=== PATIENT | female | born 1995 | race Two or more races ===

== ENCOUNTER 2020-12-06 12:44 | Outpatient (REF) | payer OTHER, SELFPAY ==
[2020-12-07 02:42] LABS: CT PCR NOT DETECTED (Not Detect.); NG PCR NOT DETECTED (Not Detect.)
== END 2020-12-06 12:45 | disposition home or self-care (01) ==
LOC: HO.LAB 12:44
PROVIDERS: PCP Family Medicine; Visit Provider Obstetrics & Gynecology
DX: Z30.09 Encounter for other general counseling and advice on contraception (principal); N91.2 Amenorrhea, unspecified
CPT/HCPCS: 87491; 87591; 99212

== ENCOUNTER → 2020-12-20 10:04 | Outpatient (BNVA) | payer OTHER, SELFPAY | PROVIDERS: PCP Family Medicine; Visit Provider Obstetrics & Gynecology ==

== ENCOUNTER 2020-12-21 11:15 | Outpatient (REF) | payer OTHER, SELFPAY ==
[2020-12-21 13:37] LABS: TSH reflex Free T4 0.78 uIU/mL (0.32-4.0)
== END 2020-12-21 11:16 | disposition home or self-care (01) ==
LOC: HO.LAB 11:15
PROVIDERS: PCP Family Medicine; Visit Provider Obstetrics & Gynecology
DX: N91.2 Amenorrhea, unspecified (principal)
CPT/HCPCS: 36415; 84443

== ENCOUNTER 2021-10-05 16:31 | Emergency (ER) | payer OTHER, SELFPAY ==
--- NOTE | ~2021-10-05 | XR_ITS ---
EXAMINATION: CHEST 2 VIEWS CLINICAL INFORMATION: COUGH, FEVER . COMPARISON: No recent pertinent prior studies are available for comparison. TECHNIQUE: PA and lateral views of the chest obtained. FINDINGS: The lungs are well expanded. No focal infiltrate, effusion, edema, or pneumothorax. Cardiac and mediastinal silhouettes are within normal limits for technique. No acute bony abnormality seen XR/XR chest 2V IMPRESSION: No evidence of acute disease
[2021-10-05 17:13] VITALS: BP 127/77; PULSE 140; RESP 22; TEMP 37.9; O2SAT 99; BMI 28.3
--- NOTE | 2021-10-05 17:19 | ECG_ITS ---
Test Reason : TACHYCARDIA Blood Pressure : / mmHG Vent. Rate : 123 BPM Atrial Rate : 123 BPM P-R Int : 164 ms QRS Dur : 090 ms QT Int : 298 ms P-R-T Axes : 050 -02 025 degrees QTc Int : 426 ms Sinus tachycardia Otherwise normal ECG No previous ECGs available Referred By: Sheela Cedillo Electronically Signed By:CYDNEY GONZALEZ
[2021-10-05] MEDS: Acetaminophen 325 MG TABLET 650 MG PO (17:25)
[2021-10-05 17:33] LABS: Appearance Urine CLEAR; Color Urine YELLOW; Glucose Urine UA NEG (NEG); Leukocyte Esterase Urine NEG (NEG); Nitrite Urine NEG (NEG); PH 6.5 (5.0-8.0); UACC Culture Trigger NO; Urine Blood 2+ (NEG); Urine Ketones NEG (NEG); Urine Protein NEG (NEG-TRACE)
[2021-10-05 17:34] LABS: UPreg QC Valid YES; Urine Pregnancy NEGATIVE (NEGATIVE)
[2021-10-05 17:42] LABS: Bacteria Urine TRACE /LPF; RBC Urine 0 /HPF (0); Squamous Epithelial Cell Urine 1+ /LPF; WBC Urine 0 /HPF (0-4)
[2021-10-05 17:45] LABS: Influenza A Positive (Negative); Influenza B2 Negative (Negative)
[2021-10-05 19:22] VITALS: BP 137/78; PULSE 109; RESP 16; TEMP 37.4; O2SAT 100
--- NOTE | 2021-10-05 19:38 | ED.URI ---
HPI - URI/Sore Throat General Chief Complaint: Upper Respiratory Symptoms Stated Complaint: both side pain and lung pain cough Time Seen by Provider: 10/05/21 17:18 Source: patient Mode of arrival: ambulatory Limitations: language barrier (Kazakh-speaking medical psychotherapist utilized) History of Present Illness HPI Narrative: Patient presents to the emergency department for evaluation cough, nasal congestion, and rib pain x2 days. Reports pain to the sides of her chest/ribs is present when coughing or taking deep breaths. Denies any known sick contacts. Denies fevers, chills, sore throat, neck pain, neck stiffness, headache, chest pain, palpitations, shortness of breath, difficulty breathing, nausea, vomiting, abdominal pain, leg pain or swelling, history of DVT/PE. MD elicited complaint: fever, cough and nasal congestion Description of mucous: watery Able to tolerate fluids by mouth: Yes Related Data Previous Rx's Medication Instructions Recorded medroxyprogesterone 10 mg tablet 10 mg PO daily 5 Days #5 tab 12/06/20 (Provera) desogestrel 0.15 mg-ethinyl 1 tab PO DAILY 28 Days #28 tab 12/20/20 estradiol 0.03 mg tablet (Apri) oseltamivir 75 mg capsule (Tamiflu) 75 mg PO BID 5 Days #10 cap 10/05/21 Allergies Allergy/AdvReac Type Severity Reaction Status Date / Time No Known Allergies Allergy Verified 12/06/20 12:59 [No Known Allergies*] Review of Systems Review of Systems: Constitutional: Positive fever. No chills. No weakness. Positive fatigue. ENT/ Mouth: No Ear Pain, positive Nasal Congestion, no sore throat, No Rhinorrhea, No Swallowing Difficulty Skin: No rash or itching. Cardiovascular: Positive chest wall pain. No palpitations. Respiratory: No shortness of breath. Positive cough. No sputum production. Gastrointestinal: No nausea. No vomiting. No diarrhea. No abdominal pain. Genitourinary: No burning micturition. No urinary frequency. Neurologic: No headache. No dizziness. No syncope. No numbness or tingling in the extremities. Musculoskeletal: No muscle pain. No back pain. No joint pain or stiffness. Yes all other systems are reviewed and are negative PMFSH Past Medical History Attestation statement: The following information was validated with the patient. Source: old records reviewed Surgical History Hx of section Social History Social History Alcohol intake: never Patient Tobacco Use Status: Never used Tobacco Advance Directives: No Advance Directives Information Provided: Yes Physical Exam Vital Signs: Vital Signs: Last Vital Signs Temp 99.3 F 10/05/21 19:22 Pulse 109 H 10/05/21 19:22 Resp 16 10/05/21 19:22 BP 137/78 10/05/21 19:22 Pulse Ox 100 10/05/21 19:22 BMI result Body Mass Index 28.3 Appearance: Alert.?Oriented to person, place and time. No acute distress.?Normal affect. Eyes: Pupils equal, round and reactive to light.? ENT: TM normal bilaterally. Pharynx normal.?? Neck: Normal inspection.? Neck supple.??No cervical adenopathy CVS: Heart sounds normal. Normal heart rate and rhythm.? Pulses normal.?? Respiratory: No respiratory distress.? Lung sounds clear to auscultation bilaterally. Chest wall tenderness with palpation, no crepitus. Abdomen: Soft and non-tender. Normoactive bowel sounds. Skin: Skin warm and dry.? Normal skin color.? ? Extremities: No lower extremity edema.? Neuro: Moves all extremities spontaneously. Sensation intact bilaterally. No motor deficits. Ambulates with normal steady gait. Course Course Course Narrative: Patient is a 26-year-old female with no significant past medical history, presenting for evaluation of upper respiratory symptoms. COVID-19 testing negative. Influenza testing positive. Reproducible lateral chest wall pain. At this time history and physical exam not consistent with ACS/PE/pneumonia. Patient initially presented with tachycardia, low-grade fever at 100.3, respiratory rate 22, at this time not consistent with sepsis, likely tachycardia secondary to fever in the setting of viral illness. Well appearing, nontoxic, no hypoxia. Speaking clear full sentences, ambulatory with steady gait. Discussed conservative treatment including rest, hydration, Tylenol/ibuprofen as needed for fever and body aches, saline nasal spray, humidifier, [id number] cold medication. Offered Tamiflu and she accepted. to follow-up with primary care provider as needed, discussed reasons to return back to the emergency department. All questions were answered. Patient discharged home in stable condition. Provided with a return to work/school note. MDM - URI/Sore Throat Medical Records Attestation: I reviewed the patient's medical records. Lab Data Attestation: I reviewed the patient's lab results. Labs: Lab Results 10/05/21 10/05/21 10/05/21 Range/Units 17:23 17:23 17:23 Urine Color YELLOW Urine Appearance CLEAR Urine pH 6.5 (5.0-8.0) Ur Specific [place] 1.010 (1.005-1.025) Urine Protein NEG (NEG-TRACE) MG/DL Urine Glucose (UA) NEG (NEG) MG/DL Urine Ketones NEG (NEG) MG/DL Urine Blood 2+ H (NEG) Urine Nitrite NEG (NEG) Ur Leukocyte Esterase NEG (NEG) Urine RBC 0 (0) /HPF Urine WBC 0 (0-4) /HPF Ur Squamous Epith Cells 1+ /LPF Urine Bacteria TRACE /LPF Urine Test NEGATIVE (NEGATIVE) Influenza Type A (FAMILIA) Positive A (Negative) Influenza Type B (FAMILIA) Negative (Negative) Influenza A & B Note See Note Imaging Data Chest x-ray: Radiologist's impression: XR/XR chest 2V IMPRESSION: No evidence of acute disease ECG Data Attestation: I personally reviewed and interpreted this ECG as follows: ECG interpretation date: 10/06/21 Interpretation: Rate: 120 Rhythm:? Sinus tachycardia [place]:? [place] Normal P waves.? Normal MARGARET.?? Normal QRS complex.?? ST T wave :??No ST elevation, no ST depression, no T-wave inversion qTC: 426 The study has been interpreted contemporaneously by me. Discharge Plan Discharge Clinical Impression: Influenza A Patient Disposition: Home, Self-Care Instructions: Influenza (ED) Additional Instructions: Be sure to rest, stay well hydrated drinking plenty of fluids, eat small frequent meals. Tamiflu was sent to the pharmacy. Tylenol/ibuprofen can be used as needed for fever/pain. [id number] cold medications may be helpful as well for symptoms. Saline nasal spray, humidifier may be helpful for nasal congestion. You may return to the emergency department with any new or worsening symptoms or concerns. Follow-up with your primary care provider as needed. Should remain out of school/ work until symptoms have resolved and have been without a fever for 24 hours without the use of Tylenol or ibuprofen. Prescriptions: New oseltamivir [Tamiflu] 75 mg capsule 75 mg PO BID 5 Days Qty: 10 0RF No Action medroxyprogesterone [Provera] 10 mg tablet 10 mg PO daily 5 Days Qty: 5 0RF desogestrel-ethinyl estradiol [Apri] 0.15-0.03 mg tablet 1 tab PO DAILY 28 Days Qty: 28 2RF Stand Alone Forms: Work/School Release Interventions: ED Discharge Assessment Last Done: 10/05/21 20:15 Discharge Date/Time: 10/05/21 20:17 Print Language: Kazakh
== END 2021-10-05 20:17 | disposition home or self-care (01) ==
PROVIDERS: Emergency Provider Internal Medicine; PCP Family Medicine
DX: J10.1 Influenza due to other identified influenza virus with other respiratory manifestations (principal); R05.9 Cough, unspecified; R00.0 Tachycardia, unspecified; R50.9 Fever, unspecified; Z79.899 Other long term (current) drug therapy
CPT/HCPCS: 71046; 81001; 81025; 87502; 93005; 99283; 99284

== ENCOUNTER 2022-03-14 09:10 | Outpatient (REF) | payer OTHER, SELFPAY ==
[2022-03-14 14:03] LABS: CT PCR NOT DETECTED (Not Detect.); NG PCR NOT DETECTED (Not Detect.)
== END 2022-03-14 09:11 | disposition home or self-care (01) ==
LOC: HO.LNP 09:10
PROVIDERS: Visit Provider Obstetrics & Gynecology
DX: Z01.419 Encounter for gynecological examination (general) (routine) without abnormal findings (principal)
CPT/HCPCS: 87491; 87591; 88142

== ENCOUNTER 2023-06-18 14:36 | Outpatient (REF) | payer OTHER, SELFPAY ==
[2023-06-18 17:44] LABS: CT PCR NOT DETECTED (Not Detect.); NG PCR NOT DETECTED (Not Detect.)
[2023-06-19 13:12] LABS: BV Int Neg Control Negative (Negative); BV Int Pos Control Positive (Positive)
== END 2023-06-18 14:37 | disposition home or self-care (01) ==
LOC: HO.LNP 14:36
PROVIDERS: PCP Family Medicine; Visit Provider Obstetrics & Gynecology
DX: N76.0 Acute vaginitis (principal); R10.2 Pelvic and perineal pain; Z32.02 Encounter for pregnancy test, result negative
CPT/HCPCS: 0353U; 81003; 81025; 87480; 87510; 87660; 99212

== ENCOUNTER 2023-06-18 14:36 | Outpatient (AMB) | payer OTHER, SELFPAY ==
[2023-06-18 14:58] VITALS: BP 130/72; BMI 33.4
--- NOTE | 2023-06-18 14:58 | A.OFFVIS_ITS ---
Intake Vital Signs 06/18/23 14:58 Height 5 ft 5 in Weight 201 lb BMI 33.4 BP 130/72 Intake Visit Reasons: vaginal discharge Stock Holder Required: Yes Stock Holder Language: Inspector Tool Name: Rachel Gunter Information Interpreted: non-clinical & clinical Extrusion Die Repair Manager: Extrusion Die Repair Manager Present (Rachel) Allergies No Known Allergies [No Known Allergies*] Allergy (Verified 06/18/23 15:03) Post menopausal: No HPI HPI Comments History of Present Illness Details Presenting complaining of vulvovaginal irritation associated with vaginal discharge and right-sided pelvic pain, no fever or chills, no nausea or vomiting. PFSH Surgical History Hx of section Family History Father Diabetes HTN (hypertension) Mother Diabetes HTN (hypertension) Social History Household Members: Significant Other and Children Housing: Apartment Alcohol intake: never Patient Tobacco Use Status: Never used Tobacco Current occupational status: employed Current occupation: [employer] Sexual orientation: Straight/Heterosexual Gender identity: Female Female Reproductive History Menstrual Age of Menarche: 14 control method: none Total pregnancies: 2 Number of Living Children: 3 Multiple births: 1 Date of last pap smear: 03/14/22 (negative) Review of Systems Const All systems reviewed & are unremarkable except as noted in HPI and below Physical Exam Vital Signs: Last Vital Signs BP 130/72 06/18/23 14:58 BMI result Body Mass Index 33.4 General: Yes no CVA tenderness External Female Exam: normal external appearance and normal appearance of the urethra Speculum Exam - Vagina: normal appearance of the vagina, normal palpation, no lesions and no masses Speculum Exam - Cervix: normal appearance of the cervix, normal palpation, no lesions, no masses and nontender Bimanual exam- vagina & uterus: normal bimanual exam, normal palpation, uterine size normal, normal palpation, uterine shape normal, No Cervical tenderness present and non-tender Bimanual Exam- Adnexa, other: normal adnexae (Left adnexa within normal, right adnexa enlarged) Back/Spine/Pelvis Back: no CVA tenderness Results AMB Urinalysis, Automated UA Leukoctes 0 Andrez/uL Last Edit by NATALY Roger on 06/18/23 15:26 UA Nitrite Negative Last Edit by Melissa Lee Theresa on 06/18/23 15:26 UA Urobilinogen 0 mg/dL Last Edit by Melissa Lee Theresa on 06/18/23 15:26 UA Protein 0 mg/dL Last Edit by [facility] on 06/18/23 15:26 UA pH 6 Last Edit by Melissa [facility] on 06/18/23 15:26 UA Blood 0 Santos/uL Last Edit by Melissa [facility] on 06/18/23 15:26 UA Specific [place] 1.010 Last Edit by Melissa Lee Theresa on 06/18/23 15: 26 UA Ketone Negative Last Edit by Melissa Lee Theresa on 06/18/23 15:26 UA Bilirubin 0 mg/dL Last Edit by Melissa [facility] on 06/18/23 15:26 UA Glucose 0 mg/dL Last Edit by Melissa Lee Theresa on 06/18/23 15:26 AMB Test Urine AMB Test Urine Negative Last Edit by NATALY Roger on 06/18/23 15:26 Assessment & Plan Assessment & Plan (1) Vulvovaginitis: Code(s): N76.0 - Acute vaginitis Plan: GC/CT, Bacterial Vaginosis panel taken, Terazol 0.8% q.h.s. for 3 days was sent to the patient's pharmacy. The patient was instructed to call if symptoms don't improve in 48 hours. (2) Pelvic pain: Comment: Enlarged right adnexal Code(s): R10.2 - Pelvic and perineal pain Plan: Urine dip and test done in the office were both negative. GC and chlamydia taken and pelvic ultrasound ordered. Discussed with the patient the differential diagnosis of pelvic pain including but not limited to adnexal, uterine masses, pelvic infections (PID), GI the (Irritable bowel syndrome, diverticulitis, others), musculoskeletal, myofascial pain abdominal wall , adhesions, endometriosis, psychological and others causes. Will check results and treat accordingly. All questions answered, the patient verbalized understanding. Instructed the patient to schedule follow-up appointment in 2 weeks Orders: Orders CT NG by PCR Today N76.0 - Acute vaginitis, R10.2 - Pelvic and perineal pain Bacterial Vaginosis Panel Today N76.0 - Acute vaginitis, R10.2 - Pelvic and perineal pain AMB Urinalysis Automated Today R10.2 - Pelvic and perineal pain US pelvic and transvaginal Today R10.2 - Pelvic and perineal pain AMB HCG Urine Test Today Z32.02 - Encounter for test, result negative Medications: New terconazole 0.8% 1 appful vaginal BEDTIME 3 days 20 grams 0RF Coding Level of Care Code Est Pt Level 3 (77565) Diagnoses Vulvovaginitis N76.0 Pelvic pain R10.2
== END 2023-06-18 15:52 | disposition home or self-care (01) ==
LOC: HO.HWS 14:36
PROVIDERS: PCP Family Medicine; Visit Provider Obstetrics & Gynecology
DX: N76.0 Acute vaginitis (principal); R10.2 Pelvic and perineal pain; Z32.02 Encounter for pregnancy test, result negative
CPT/HCPCS: 99213

== ENCOUNTER 2023-06-21 13:31 | Outpatient (REF) | payer OTHER, SELFPAY ==
--- NOTE | ~2023-06-21 | US_ITS ---
EXAMINATION: US PELVIS CLINICAL INFORMATION: Pain, 28-year-old, LMP 2-24 COMPARISON: None available. TECHNIQUE: Ultrasound of the pelvis is performed using both transabdominal and transvaginal transducers along with Doppler. Transvaginal imaging is performed due to inadequate visualization transabdominally. FINDINGS: Uterus: The uterus is anteverted and measures 12.3 x 5.3 x 5.7 cm. The double wall endometrial thickness is 11 mm. The uterus is smooth in contour and has normal myometrial echogenicity. No visible fibroid. Adnexa: Both ovaries are visualized. There is normal color flow to the adnexa. There is no ovarian torsion. There is no pelvic ascites or fluid collection. Right ovary measures 3.3 x 2.1 x 2.2 cm. Left ovary measures 2.9 x 2.1 x 2.5 cm. US/US pelvic and transvaginal IMPRESSION: Unremarkable pelvic ultrasound.
== END 2023-06-21 13:32 | disposition home or self-care (01) ==
LOC: HO.HMGCX 13:31
PROVIDERS: PCP Family Medicine; Visit Provider Obstetrics & Gynecology
DX: R10.2 Pelvic and perineal pain (principal)
CPT/HCPCS: 76830; 76856

== ENCOUNTER 2023-07-02 13:37 | Outpatient (AMB) | payer OTHER, SELFPAY ==
--- NOTE | 2023-07-02 13:42 | MHC.OFFVIS ---
Intake Intake Visit Reasons: US follow up per Computer Engineering Technologist Required: Yes Computer Engineering Technologist Language: Assistant Plant Controller Name: Rachel Information Interpreted: non-clinical & clinical Allergies No Known Allergies [No Known Allergies*] Allergy (Verified 07/02/23 13:44) Is last menstrual period known: Yes Last menstrual period: 06/21/23 [facility] HPI Comments History of Present Illness Details Presenting for follow-up. The patient had a workup for pelvic pain which included the following: Urine dip and urine test done in the office last visit were negative. Pelvic ultrasound showed the following: Uterus: The uterus is anteverted and measures 12.3 x 5.3 x 5.7 cm. The double wall endometrial thickness is 11 mm. The uterus is smooth in contour and has normal myometrial echogenicity. No visible fibroid. Adnexa: Both ovaries are visualized. There is normal color flow to the adnexa. There is no ovarian torsion. There is no pelvic ascites or fluid collection. Right ovary measures 3.3 x 2.1 x 2.2 cm. Left ovary measures 2.9 x 2.1 x 2.5 cm. Since then the patient's pain has completely resolved with no concerns PFSH Surgical History Hx of section Family History Father Diabetes HTN (hypertension) Mother Diabetes HTN (hypertension) Social History Household Members: Significant Other and Children Housing: Apartment Alcohol intake: never Patient Tobacco Use Status: Never used Tobacco Current occupational status: employed Current occupation: [email or web address] Sexual orientation: Straight/Heterosexual Gender identity: Female Female Reproductive History Menstrual Age of Menarche: 14 Date of last menstrual period: 06/21/23 Review of Systems Const All systems reviewed & are unremarkable except as noted in HPI and below Reports as per HPI and Reports no additional complaints GI Reports no additional complaints Reports no additional complaints Assessment & Plan Assessment & Plan (1) Pelvic pain: Code(s): R10.2 - Pelvic and perineal pain Plan: Discussed with the patient the workup done for pelvic pain including GC/CT negative, negative urine dip and test, an unremarkable ultrasound. Instructions given to patient to call in case of recurrence of her pelvic pain. All questions answered, the patient verbalized understanding Coding Level of Care Code Est Pt Level 3 (59156) Diagnoses Pelvic pain R10.2
== END 2023-07-02 14:03 | disposition home or self-care (01) ==
LOC: HO.HWS 13:37
PROVIDERS: PCP Family Medicine; Visit Provider Obstetrics & Gynecology
DX: R10.2 Pelvic and perineal pain (principal)
CPT/HCPCS: 99213

== ENCOUNTER → 2023-07-02 13:37 | Outpatient (BNVA) | payer OTHER, SELFPAY | PROVIDERS: PCP Family Medicine; Visit Provider Obstetrics & Gynecology | DX: R10.2 Pelvic and perineal pain (principal) | CPT/HCPCS: 99212 ==

== ENCOUNTER 2023-09-10 08:52 | Inpatient (IN) | payer OTHER, SELFPAY ==
--- NOTE | ~2023-09-10 | US_ITS ---
EXAMINATION: US PELVIS CLINICAL INFORMATION: Right pelvic pain, rule out torsion COMPARISON: None available. TECHNIQUE: Ultrasound of the pelvis is performed using both transabdominal and transvaginal transducers along with Doppler. Transvaginal imaging is performed due to inadequate visualization transabdominally. FINDINGS: Uterus: The uterus is anteverted and measures 13 x 4.4 x 6.9. No visible fibroid. The double wall endometrial thickness is 11 mm. Nabothian cysts are seen. Adnexa: Both ovaries are visualized. There is normal arterial and venous color flow to the ovaries. There is no sonographic evidence of ovarian torsion. There is no pelvic ascites or fluid collection. Right ovary measures 4.7 x 2.8 x 2.9 cm. Previous measurement was 3.2 x 2.1 x 2.2 cm. Volume is 20 mL. Follicles are seen. Left ovary measures 3.8 x 3.2 x 2.8 cm. Previous measurement was 2.9 x 2.1 x 2.5 cm. Volume is 17.8 mL. Involuting corpus luteum seen. US/US pelvic and transvaginal IMPRESSION: No uterine or ovarian pathology recognized. Nabothian cysts.
--- NOTE | ~2023-09-10 | US_ITS ---
EXAMINATION: US PELVIS CLINICAL INFORMATION: Right pelvic pain, rule out torsion COMPARISON: None available. TECHNIQUE: Ultrasound of the pelvis is performed using both transabdominal and transvaginal transducers along with Doppler. Transvaginal imaging is performed due to inadequate visualization transabdominally. FINDINGS: Uterus: The uterus is anteverted and measures 13 x 4.4 x 6.9. No visible fibroid. The double wall endometrial thickness is 11 mm. Nabothian cysts are seen. Adnexa: Both ovaries are visualized. There is normal arterial and venous color flow to the ovaries. There is no sonographic evidence of ovarian torsion. There is no pelvic ascites or fluid collection. Right ovary measures 4.7 x 2.8 x 2.9 cm. Previous measurement was 3.2 x 2.1 x 2.2 cm. Volume is 20 mL. Follicles are seen. Left ovary measures 3.8 x 3.2 x 2.8 cm. Previous measurement was 2.9 x 2.1 x 2.5 cm. Volume is 17.8 mL. Involuting corpus luteum seen. US/US pelvic ovarian doppler IMPRESSION: No uterine or ovarian pathology recognized. Nabothian cysts.
--- NOTE | ~2023-09-10 | CT_ITS ---
EXAMINATION: CT ABDOMEN AND PELVIS WITH CONTRAST CLINICAL INFORMATION: Right lower quadrant pain, rule out appendicitis COMPARISON: Same day pelvic ultrasound TECHNIQUE: Multidetector volumetric images were obtained from the superior aspect of the liver through the pubic symphysis following administration 85 mL of Omnipaque 350 intravenous contrast. Sagittal and coronal reformatted images were obtained on the technologist's workstation. Oral contrast: No This CT examination was performed using dose optimization techniques as appropriate, variously including the following: *Automated exposure control *Adjustment of mA and/or kV according to patient size (this includes techniques or standardized protocols for targeted exams where dose is matched to indication/reason for exam; i.e. extremities or head) *Use of iterative reconstruction technique DLP: 702 mGy-cm FINDINGS: WAX SPECIALIST: Nonobstructive bowel pattern LUNG BASES: Nonenlarged heart. No pericardial effusion. Minor dependent atelectasis. LIVER, GALLBLADDER, AND BILIARY TREE: The liver is normal in size, shape, and attenuation. No focal hepatic lesion or biliary ductal dilatation is present. The gallbladder is unremarkable with no evidence of radiopaque gallstones, gallbladder wall thickening, or obvious pericholecystic inflammatory changes. PANCREAS: Unremarkable. SPLEEN: Unremarkable. ADRENAL GLANDS: Unremarkable. KIDNEYS AND URETERS: The kidneys are normal in size, shape, and attenuation. No hydronephrosis, hydroureter, or calculi seen. No perinephric stranding. BLADDER: Unremarkable. GASTROINTESTINAL TRACT: Stomach is decompressed. Bowel pattern is nonobstructive. While not thickened, minimal amount of medial periappendiceal stranding is seen, 3:60, 5:25, 6:71. Minimal stranding inferior and lateral to the appendix seen on 3:65 and 5:23. Mild to moderate fecal retention. ABDOMINAL WALL: Small fat filled umbilical hernia. LYMPH NODES: Normal. VASCULAR: Unremarkable. PELVIC VISCERA: Nabothian cysts. Right sided follicles and 2.3 cm left ovarian cyst, likely corresponding to corpus luteum cyst on same-day ultrasound. Small amount of free pelvic fluid. OSSEOUS STRUCTURES: Unremarkable. CT/CT abdomen pelvis w IV con IMPRESSION: Minimal periappendiceal stranding. Early appendicitis needs to be considered. Small amount of free pelvic fluid, not appreciated on pelvic ultrasound performed earlier in the day. Fleischner guidelines were followed.
[2023-09-10 08:55] VITALS: BP 142/69; PULSE 84; RESP 16; TEMP 36.3; O2SAT 100; BMI 31.8
[2023-09-10 09:29] LABS: MANUAL DIFF FLAG NO
[2023-09-10 09:32] LABS: Appearance Urine Clear; Basophils Absolute Auto 0.1 X10*3/uL (0.0-0.2); Basophils Percent Auto 0.8 % (0-2); Color Urine Yellow; Eosinophils Absolute Auto 0.1 X10*3/uL (0.0-0.4); Eosinophils Percent Auto 1.8 % (0-4); Glucose Urine UA Negative (Negative); Hematocrit 38.1 % (37.0-47.0); Hemoglobin 12.5 g/dl (12.0-16.0); Imm Gran Abs Auto 0.01 X10*3/uL (0.00-0.03); Imm Gran Pct Auto 0.2 % (0.0-0.4); Leukocyte Esterase Urine Negative (Negative); Lymphocytes Absolute Auto 1.8 X10*3/uL (1.2-4.9); Lymphocytes Percent Auto 29.4 % (20-40); Mean Corpuscular HGB Conc 32.8 g/dl (31.0-35.0); Mean Corpuscular Volume 85.2 fL (80.0-98.0); Mean Platelet Volume 10.2 fL (9.4-12.3); Monocytes Absolute Auto 0.4 X10*3/uL (0.1-1.2); Monocytes Percent Auto 5.9 % (2-11); Neutrophils Absolute Auto 3.9 x10*3/uL (2.0-8.3); Neutrophils Percent Auto 61.9 % (45-73); Nitrite Urine Negative (Negative); Platelet Count 293 X10*3/uL (160-400); Red Blood Count 4.47 X10*6/uL (4.20-5.50); Specific Gravity - Urine <= 1.005 (1.005-1.025); Urine Blood Negative (Negative); Urine Ketones Negative (Negative); Urine Protein Negative (Neg-Trace); White Blood Count 6.3 X10*3/uL (4.8-10.8)
[2023-09-10 09:36] LABS: UPreg QC Valid YES; Urine Pregnancy NEGATIVE (NEGATIVE)
[2023-09-10 09:51] LABS: Alanine Aminotransferase 68 U/L (0-31); Albumin Level 4.1 g/dL (3.5-5.0); Alkaline Phosphatase 62 U/L (39-117); Anion Gap 9 (12-20); Aspartate Amino Transferase 39 U/L (5-31); Bilirubin Total 0.6 mg/dL (0.0-1.0); Blood Urea Nitrogen 11 mg/dL (9-16); Calcium 9.2 mg/dL (8.4-10.2); Carbon Dioxide 29 mmol/L (22-29); Chloride 105 mmol/L (96-108); Creatinine Clr Calc Pharmacy 130.6; Estimated Glomerular Filt Rate > 60; Glucose Random 98 mg/dL (60-115); Lipase 16 U/L (8-78); Potassium 3.8 mmol/L (3.3-5.1); Sodium 139 mmol/L (135-145); Total Protein 7.4 g/dL (6.5-8.0)
--- NOTE | 2023-09-10 10:44 | ED.ABDPAIN ---
HPI - Abdominal Pain General Chief Complaint: Abdominal Pain Stated Complaint: Abd pain near belly button Time Seen by Provider: 09/10/23 10:44 Source: patient Limitations: language barrier (Utilize client operations manager services) History of Present Illness HPI narrative: 28-year-old female with history of ovarian cysts, status post presents with abdominal pain since this morning. Patient states she developed intense stabbing suprapubic discomfort. Since the onset of her sxs, the pain has migrated to the right lower abdomen, and radiates across her lower back. The pain is intermittent, worse with movement. Associated nausea. Denies dysuria, hematuria, new vaginal discharge, risk for STD. Related Data Allergies Allergy/AdvReac Type Severity Reaction Status Date / Time No Known Allergies Allergy Verified 09/10/23 09:02 [No Known Allergies*] Review of Systems Review of Systems Yes all other systems are reviewed and are negative PMFSH Past Medical History Surgical History Hx of section Family History Family History Father Diabetes HTN (hypertension) Mother Diabetes HTN (hypertension) Social History Social History Household Members: Significant Other and Children Housing: Apartment Alcohol intake: never Patient Tobacco Use Status: Never used Tobacco Smoked in Last 30 Days: No Use of substances other than those prescribed or required for medical reasons: No Advance Directives: No Advance Directives Information Provided: Yes Do you have a plan to hurt others: No Plan Patient : No Current occupational status: employed Current occupation: [employer] Sexual orientation: Straight/Heterosexual Gender identity: Female Physical Exam ED Vital Signs: Vital Signs - 24 hr 09/10/23 08:55 09/10/23 11:23 09/10/23 12:52 Temperature 97.3 F 98.0 F 98.2 F Pulse Rate 84 85 71 Respiratory Rate 16 16 16 Blood Pressure 142/69 H 127/77 117/68 Pulse Oximetry 100 100 100 Oxygen Delivery Method Room Air Room Air Room Air 09/10/23 14:16 Temperature Pulse Rate 94 Respiratory Rate 14 Blood Pressure 133/76 Pulse Oximetry 99 Oxygen Delivery Method Room Air BMI result Body Mass Index 31.8 Const Other: Alert well in appearance Orientation/consciousness: patient oriented x3 Eyes Pupils: Equal, round and reactive pupils present Resp Other: Nonlabored respiration Cardio Other: Normal peripheral perfusion GI Other: Abdomen is soft, nondistended, obese, mild to moderate tenderness suprapubic region, with referred pain to the right lower quadrant, focal moderate to severe right lower quadrant pain with involuntary guarding no peritoneal signs on exam Other: Deferred as it is not clinically indicated at this time Neuro General: patient oriented x3, gait normal, no focal motor deficits and CN's II-XI intact bilaterally Cranial nerves: Yes Equal, round and reactive pupils present Extrem Other: Strength 5/5 bilateral upper and lower extremities Course Consultations Consultation #1: Dr Norma Jonas I actually spoke with Dr. Valadez.... The patient will be admitted to the surgical service Time: 15:36 Medical Decision Making Medical Decision Making MDM Narrative: 28-year-old female with history of ovarian cysts, status post presents with abdominal pain since this morning. Patient states she developed intense stabbing suprapubic discomfort. Since the onset of her sxs, the pain has migrated to the right lower abdomen, and radiates across her lower back. The pain is intermittent, worse with movement. Associated nausea. Denies dysuria, hematuria, new vaginal discharge, risk for STD. Problem: Ovarian cyst History: Per patient I have considered the following differential diagnoses: Appendicitis, torsion, TOA, PID, UTI Plan: Given patient's symptoms are intermittent, and she has a history of ovarian cysts, I am concerned for intermittent torsion. I am also concerned for appendicitis given distribution and she does have focal right lower quadrant pain with guarding. Screening labs including a urinalysis on process. I am going to begin with a transvaginal ultrasound, if this is negative for acute process, she will have a CT scan. Given Toradol, Zofran and IV fluids at this time. I deferred a pelvic exam, it has not clinically warranted at this time, she has no risk for STD, and no new related symptoms I have independently reviewed the following tests: Labs: No leukocytosis, not anemic, no electrolyte abnormality, minimal elevation of AST ALT, this has been elevated in the past, urine not infected patient not Ordering Physician: Susannah Madrigal Date of Service: 09/10/23 Procedure(s): US pelvic ovarian doppler Accession Number(s): [id number] cc: Ezekiel Gordon MD; Susannah Madrigal~ EXAMINATION: US PELVIS CLINICAL INFORMATION: Right pelvic pain, rule out torsion COMPARISON: None available. TECHNIQUE: Ultrasound of the pelvis is performed using both transabdominal and transvaginal transducers along with Doppler. Transvaginal imaging is performed due to inadequate visualization transabdominally. FINDINGS: Uterus: The uterus is anteverted and measures 13 x 4.4 x 6.9. No visible fibroid. The double wall endometrial thickness is 11 mm. Nabothian cysts are seen. Adnexa: Both ovaries are visualized. There is normal arterial and venous color flow to the ovaries. There is no sonographic evidence of ovarian torsion. There is no pelvic ascites or fluid collection. Right ovary measures 4.7 x 2.8 x 2.9 cm. Previous measurement was 3.2 x 2.1 x 2.2 cm. Volume is 20 mL. Follicles are seen. Left ovary measures 3.8 x 3.2 x 2.8 cm. Previous measurement was 2.9 x 2.1 x 2.5 cm. Volume is 17.8 mL. Involuting corpus luteum seen. US/US pelvic ovarian doppler IMPRESSION: No uterine or ovarian pathology recognized. Nabothian cysts. CT abdomen/pelvis: [place] [id number] CT Scan Report Signed Patient: Laney Carrington MR#: [id number] : 1995 Acct:[id number] Age/Sex: 28 / F ADM Date: 09/10/23 Loc: HO.ED Attending Dr: Ordering Physician: Susannah Madrigal Date of Service: 09/10/23 Procedure(s): CT abdomen pelvis w IV con Accession Number(s): [id number] cc: Ezekiel Gordon MD; Susannah Madrigal~ EXAMINATION: CT ABDOMEN AND PELVIS WITH CONTRAST CLINICAL INFORMATION: Right lower quadrant pain, rule out appendicitis COMPARISON: Same day pelvic ultrasound TECHNIQUE: Multidetector volumetric images were obtained from the superior aspect of the liver through the pubic symphysis following administration 85 mL of Omnipaque 350 intravenous contrast. Sagittal and coronal reformatted images were obtained on the technologist's workstation. Oral contrast: No This CT examination was performed using dose optimization techniques as appropriate, variously including the following: *Automated exposure control *Adjustment of mA and/or kV according to patient size (this includes techniques or standardized protocols for targeted exams where dose is matched to indication/reason for exam; i.e. extremities or head) *Use of iterative reconstruction technique DLP: 702 mGy-cm FINDINGS: SLEEPING CAR PORTER: Nonobstructive bowel pattern LUNG BASES: Nonenlarged heart. No pericardial effusion. Minor dependent atelectasis. LIVER, GALLBLADDER, AND BILIARY TREE: The liver is normal in size, shape, and attenuation. No focal hepatic lesion or biliary ductal dilatation is present. The gallbladder is unremarkable with no evidence of radiopaque gallstones, gallbladder wall thickening, or obvious pericholecystic inflammatory changes. PANCREAS: Unremarkable. SPLEEN: Unremarkable. ADRENAL GLANDS: Unremarkable. KIDNEYS AND URETERS: The kidneys are normal in size, shape, and attenuation. No hydronephrosis, hydroureter, or calculi seen. No perinephric stranding. BLADDER: Unremarkable. GASTROINTESTINAL TRACT: Stomach is decompressed. Bowel pattern is nonobstructive. While not thickened, minimal amount of medial periappendiceal stranding is seen, 3:60, 5:25, 6:71. Minimal stranding inferior and lateral to the appendix seen on 3:65 and 5:23. Mild to moderate fecal retention. ABDOMINAL WALL: Small fat filled umbilical hernia. LYMPH NODES: Normal. VASCULAR: Unremarkable. PELVIC VISCERA: Nabothian cysts. Right sided follicles and 2.3 cm left ovarian cyst, likely corresponding to corpus luteum cyst on same-day ultrasound. Small amount of free pelvic fluid. OSSEOUS STRUCTURES: Unremarkable. CT/CT abdomen pelvis w IV con IMPRESSION: Minimal periappendiceal stranding. Early appendicitis needs to be considered. Small amount of free pelvic fluid, not appreciated on pelvic ultrasound performed earlier in the day. Fleischner guidelines were followed. Patient's surgical service now Admission/Observation Paging the surgical service for consult, patient has early signs of appendicitis on her CT scan. Medical management versus surgery. Lab Data 09/10/23 09:11 09/10/23 09:11 Labs: Lab Results 09/10/23 Range/Units 09:11 WBC 6.3 (4.8-10.8) X10*3/uL RBC 4.47 (4.20-5.50) X10*6/uL Hgb 12.5 (12.0-16.0) g/dl Hct 38.1 (37.0-47.0) % MCV 85.2 (80.0-98.0) fL MCH 28.0 (27.0-33.0) pg MCHC 32.8 (31.0-35.0) g/dl RDW 13.0 (11.0-16.0) % Plt Count 293 (160-400) X10*3/uL MPV 10.2 (9.4-12.3) fL Immature Gran % (Auto) 0.2 (0.0-0.4) % Neut % (Auto) 61.9 (45-73) % Lymph % (Auto) 29.4 (20-40) % [place] % (Auto) 5.9 (2-11) % Eos % (Auto) 1.8 (0-4) % Baso % (Auto) 0.8 (0-2) % Lymph # (Auto) 1.8 (1.2-4.9) X10*3/uL [place] # (Auto) 0.4 (0.1-1.2) X10*3/uL Eos # (Auto) 0.1 (0.0-0.4) X10*3/uL Baso # (Auto) 0.1 (0.0-0.2) X10*3/uL Abs Immat Gran (auto) 0.01 (0.00-0.03) X10*3/uL Absolute Neuts (auto) 3.9 (2.0-8.3) x10*3/uL Absolute Nucleated RBC 0.000 (0.0-0.012) X10*3/uL Nucleated RBC % (auto) 0.0 (0.0-0.2) /100WBC Sodium 139 (135-145) mmol/L Potassium 3.8 (3.3-5.1) mmol/L Chloride 105 (96-108) mmol/L Carbon Dioxide 29 (22-29) mmol/L Anion Gap 9 L (12-20) BUN 11 (9-16) mg/dL Creatinine 0.71 (0.5-1.4) mg/dL Estim Creat Clear Calc 130.6 Estimated GFR > 60 Random Glucose 98 (60-115) mg/dL Calcium 9.2 (8.4-10.2) mg/dL Total Bilirubin 0.6 (0.0-1.0) mg/dL AST 39 H (5-31) U/L ALT 68 H (0-31) U/L Alkaline Phosphatase 62 (39-117) U/L Total Protein 7.4 (6.5-8.0) g/dL Albumin 4.1 (3.5-5.0) g/dL Lipase 16 (8-78) U/L Urine Color Yellow Urine Appearance Clear Urine pH 8.0 (5.0-9.0) Ur Specific [place] <= 1.005 (1.005-1.025) Urine Protein Negative (Neg-Trace) mg/dL Urine Glucose (UA) Negative (Negative) mg/dL Urine Ketones Negative (Negative) mg/dL Urine Blood Negative (Negative) Urine Nitrite Negative (Negative) Ur Leukocyte Esterase Negative (Negative) Urine Test NEGATIVE (NEGATIVE) Medications Administered Discontinued Medications Generic Name Dose Route Start Last Admin Trade Name Freq PRN Reason Stop Dose Admin Sodium Chloride 500 mls @ 500 mls/hr 09/10/23 11:02 09/10/23 13:23 Ns IV 09/10/23 12:01 Infused .Q1H ONE Infusion Iohexol 85 ml 09/10/23 14:12 09/10/23 14:12 Iohexol 350 Mg/Ml 100 Ml Infus..Btl IV 09/10/23 14:13 85 ml ONCE ONE Administration Ketorolac Tromethamine 15 mg 09/10/23 10:59 09/10/23 11:28 Ketorolac Tromethamine 15 Mg/Ml Vial IVPUSH 09/10/23 11:00 15 mg ONCE ONE Administration Ondansetron HCl 4 mg 09/10/23 10:59 09/10/23 11:28 Ondansetron Hcl 4 Mg/2 Ml Vial IVPUSH 09/10/23 11:00 4 mg ONCE ONE Administration Discharge Plan Discharge Clinical Impression: Acute appendicitis Patient Disposition: Admitted As Inpatient Print Language: Mongolian
[2023-09-10 11:23] VITALS: BP 127/77; PULSE 85; RESP 16; TEMP 36.7; O2SAT 100
[2023-09-10] MEDS: ondansetron HCL 4 MG/2 ML VIAL IVPUSH ×2 (11:28→17:03)
[2023-09-10] MEDS: 0.9 % Sodium Chloride 500 ML IV (11:28)
[2023-09-10] MEDS: Ketorolac Tromethamine 15 MG/ML VIAL IVPUSH (11:28)
--- NOTE | 2023-09-10 11:28 | PC.NURSE ---
a&ox4. vss and up to date. pt presents to ED w/ sudden onset lower abdomen/pelvic pain that woke her up from her sleep around 0400 this morning. pt verbalizes nausea but denies any episodes of vomiting/diarrhea. pt also denies any urinary sx. sx increase upon palpation. 20gIV placed in the right AC - medication/IVF administered per provider order. no sob/wob noted. respirations even and unlabored. pt aware of plan of care moving forward at this time. plan of care ongoing. call miranda placed within reach.
--- NOTE | 2023-09-10 11:38 | PC.NURSE ---
pt to ultrasound at this time. will resume care of pt when she returns.
[2023-09-10 12:52] VITALS: BP 117/68; PULSE 71; RESP 16; TEMP 36.8; O2SAT 100
--- NOTE | 2023-09-10 12:52 | PC.NURSE ---
pt returned from US at this time. vss and up to date. pt verbalizing pain level slightly decreased post medication administration. pt stating nausea subsided at this time. no sob/wob noted. respirations even and unlabored. US results pending. plan of care ongoing. call miranda placed within reach.
--- NOTE | 2023-09-10 14:02 | PC.NURSE ---
pt to CT at this time.
[2023-09-10] MEDS: iohexoL 350 MG/ML 100 ML INFUS..BTL 85 ML IV (14:12)
[2023-09-10 14:16] VITALS: BP 133/76; PULSE 94; RESP 14; O2SAT 99
--- NOTE | 2023-09-10 16:14 | PC.NURSE ---
pt currently speaking w/ PA from OR at this time. pt aware of plan of care in regards to care at this time. plan of care ongoing. call miranda placed within reach.
--- NOTE | 2023-09-10 16:27 | PM.HPGS ---
History of Present Illness History of Present Illness Date of Service: 09/10/23 Chief complaint: Abd pain near belly button Narrative: Laney Smith is a 28 year old female with no significant PMH who presented to the ED with c/o acute onset lower abdominal pain. She reports the pain started this morning at 4am and woke her out of sleep. It is severe in nature and constant. It is more centrally located and on the right side. The pain is associated with nausea without vomiting. She denies fever, chills, diarrhea, constipation, sick contacts, vaginal discharge, pelvic pain. She has a history of 2 c sections. Work up in the ED included CBC, BMP which were WNL. Pelvic US showed was without uterine or ovarian pathology recognized. CT ABD/pelvis showed periappendiceal stranding. Review of Systems Constitutional: Constitutional: Denies chills and Denies fever(s) Cardiovascular: Cardiovascular: Denies chest pain and Denies dyspnea Respiratory: Respiratory: Denies cough and Denies dyspnea Gastrointestinal: Gastrointestinal: Reports as per HPI, Reports abdominal pain, Denies constipation, Denies diarrhea, Denies nausea and Denies vomiting Genitourinary: Genitourinary: Denies hematuria, Denies dysuria, Denies pelvic pain and Denies vaginal discharge PMFSH Family History Family History Father Diabetes HTN (hypertension) Mother Diabetes HTN (hypertension) Surgical History Surgical History Hx of section Social History Social History Household Members: Significant Other and Children Housing: Apartment Alcohol intake: never Patient Tobacco Use Status: Never used Tobacco Smoked in Last 30 Days: No Use of substances other than those prescribed or required for medical reasons: No Advance Directives: No Advance Directives Information Provided: Yes Do you have a plan to hurt others: No Plan Patient : No Current occupational status: employed Current occupation: [employer] Sexual orientation: Straight/Heterosexual Gender identity: Female Meds Allergies Allergy/AdvReac Type Severity Reaction Status Date / Time No Known Allergies Allergy Verified 09/10/23 09:02 [No Known Allergies*] Physical Exam Vital Signs: Vital Signs: Last Vital Signs Temp 98.2 F 09/10/23 12:52 Pulse 94 09/10/23 14:16 Resp 14 09/10/23 14:16 BP 133/76 09/10/23 14:16 Pulse Ox 99 09/10/23 14:16 O2 Del Method Room Air 09/10/23 14:16 BMI result Body Mass Index 31.8 Const: General: comfortable, no acute distress and alert Orientation/consciousness: patient oriented x3 Resp: Effort & Inspection: normal respiratory effort Cardio: Rate: regular rate GI: Inspection: No distended and Yes scar (pfannensteil ) Palpation (GI): Soft to palpation, Tenderness to palpation present (GI) (just inferior to umbilicus and RLQ) Rovsing's sign positive; with no rebound tenderness and no guarding Skin: General skin exam: no rashes or lesions noted Neuro: General: patient oriented x3 Extrem: General: Yes no clubbing, cyanosis or edema Results Results Labs: Short CBC 09/10/23 Range/Units 09:11 WBC 6.3 (4.8-10.8) X10*3/uL Hgb 12.5 (12.0-16.0) g/dl Hct 38.1 (37.0-47.0) % Plt Count 293 (160-400) X10*3/uL BMP 09/10/23 09:11 Sodium 139 Potassium 3.8 Chloride 105 Carbon Dioxide 29 BUN 11 Creatinine 0.71 Calcium 9.2 Liver Function 09/10/23 Range/Units 09:11 Total Bilirubin 0.6 (0.0-1.0) mg/dL AST 39 H (5-31) U/L ALT 68 H (0-31) U/L Alkaline Phosphatase 62 (39-117) U/L Albumin 4.1 (3.5-5.0) g/dL Urine 09/10/23 Range/Units 09:11 Urine Color Yellow Urine Appearance Clear Urine pH 8.0 (5.0-9.0) Ur Specific [place] <= 1.005 (1.005-1.025) Urine Protein Negative (Neg-Trace) mg/dL Urine Glucose (UA) Negative (Negative) mg/dL Urine Test NEGATIVE (NEGATIVE) Abdomen CT scan report/results: report reviewed and image reviewed US - pelvic: report reviewed and image reviewed Assessment and Plan (1) Acute appendicitis: Status: Acute Plan 28 year old female with acute onset lower abd pain with lower abdominal/RLQ tenderness and CT showing periappendiceal stranding, possible early acute appendicitis. She is fairly tender on exam however she is clinically appearing well without any peritoneal signs. WBC count is normal. Will admit for observation, start on empiric abx. Discussed continuing with IV abx and observation or proceeding with laparoscopic appendectomy possible open. She is leaning towards surgery but will reevaluate in the morning. Patient comfortable with plan. Patient is on IV zosyn, IVF, PRN analgesics for pain. Repeat CBC in am. Quality Stroke Does the patient have a stroke diagnosis?: No VTE Prior VTE?: No VTE Risk Level:: Surgical - low VTE Device Contraindication: N/A - Device Ordered VTE Drug Contraindication: Treatment Not Indicated Procedures Date of Service Date of Service: 09/10/23
[2023-09-10] MEDS: Piperacillin Sodium/Tazobactam 3.375 GM in 0.9 % Sodium Chloride 50 ML IV ×2 (16:46→23:43)
[2023-09-10] MEDS: Lactated Ringers 1,000 ML 80 ML IVCONT (16:46)
--- NOTE | 2023-09-10 16:51 | PHA.MEDREC ---
Pharmacy Consult ? Medication Reconciliation Pharmacy has completed the medication reconciliation. Patient reported no medications at home. Frida Duke, MichelleD
--- NOTE | 2023-09-10 17:05 | PC.NURSE ---
pt actively dry heaving - prn zofran utilized at this time. effectiveness pending.
[2023-09-10 18:35] VITALS: BP 131/70; PULSE 96; RESP 16; TEMP 36.7; O2SAT 99
--- NOTE | 2023-09-10 19:31 | PC.NURSE ---
This RN assumed pt care @ 1900. Pt ca&ox4, no signs of distress. Pt rest in bed comfortably. Pts family at bedside. Plan of care ongoing.
--- NOTE | 2023-09-10 23:45 | PC.NURSE ---
Pt resting quietly in bed. Pt medicated per jul. Plan of care ongoing.
[2023-09-10 23:51] VITALS: BP 140/55; PULSE 122; RESP 19; TEMP 36.8; O2SAT 98
[2023-09-11] VITALS (19 sets, daily range): BP systolic 109–145; BP diastolic 54–91; PULSE 73–99; RESP 16–17; TEMP 36.2–37.4; O2SAT 95–100
[2023-09-11] MEDS: 0.9 % Sodium Chloride Flush 3 ML SYRINGE IVFLUSH ×2 (00:41→00:42)
--- NOTE | 2023-09-11 00:51 | PC.NURSE ---
Pt iv access flushed. Pt ambulated to the restroom and back into bed with a steady gait. Pt requested and given 2 warm blankets. Pt requesting drink but advised that she is NPO. Plan of care ongoing.
[2023-09-11] MEDS: Piperacillin Sodium/Tazobactam 3.375 GM in 0.9 % Sodium Chloride 50 ML IV (05:23)
[2023-09-11] MEDS: ondansetron HCL 4 MG/2 ML VIAL IVPUSH ×2 (05:25→12:19)
--- NOTE | 2023-09-11 05:28 | PC.NURSE ---
Pt requested and given meds for nausea. Pt medicated per jul. Plan of care ongoing.
[2023-09-11] MEDS: Lactated Ringers 1,000 ML 80 ML IVCONT (06:00)
--- NOTE | 2023-09-11 06:21 | PC.NURSE ---
Pt medicated per jul. Plan of care ongoing.
--- NOTE | 2023-09-11 09:00 | PM.PNGS ---
Subjective Subjective Date of Service: 09/11/23 Interval history: Patient's abdominal symptoms are essentially the same. Physical Exam Vital Signs: Vital Signs: Last Vital Signs Temp 98.2 F 09/11/23 06:57 Pulse 97 09/11/23 06:57 Resp 16 09/11/23 06:57 BP 118/69 09/11/23 06:57 Pulse Ox 98 09/11/23 06:57 O2 Del Method Room Air 09/11/23 06:57 BMI result Body Mass Index 31.8 GI: Other: Localized right lower quadrant focal rebound tenderness. Objective Data Active Medications Acetaminophen (Acetaminophen 325 Mg Tablet) 650 mg PO Q6H PRN PRN Reason: Pain, Mild (Pain Scale 1-3) Lactated Ringer's (Lr) 1,000 mls @ 80 mls/hr IVCONT .[id number] [facility] Last Admin: 09/11/23 06:00 Dose: 80 mls/hr Documented By: JOHANNY Piperacillin Sod/Tazobactam (Sod 3.375 gm/ Sodium Chloride) 50 mls @ 100 mls/hr IV Q6H [facility] Last Infusion: 09/11/23 06:00 Dose: Infused Documented By: JOHANNY Melatonin (Melatonin 3 Mg Tablet) 6 mg PO BEDTIME PRN PRN Reason: Insomnia Morphine Sulfate (Morphine Sulfate 4 Mg/Ml Cartridge) 4 mg IVPUSH Q4H PRN; Protocol PRN Reason: Pain, Severe (Pain Scale 7-10) Ondansetron HCl (Ondansetron Hcl 4 Mg/2 Ml Vial) 4 mg IVPUSH Q8H PRN PRN Reason: Nausea and Vomiting Last Admin: 09/11/23 05:25 Dose: 4 mg Documented By: JOHANNY Sodium Chloride (0.9 % Sodium Chloride Flush 3 Ml Syringe) 3 ml IVFLUSH QSHIFT [facility] Last Admin: 09/11/23 07:37 Dose: Not Given Documented By: JEANNE Non-Admin Reason: IV Running Sodium Chloride (0.9 % Sodium Chloride Flush 3 Ml Syringe) 3 ml IVFLUSH QSHIFT [facility] Last Admin: 09/11/23 07:37 Dose: Not Given Documented By: JEANNE Non-Admin Reason: IV Running Labs 09/10/23 09:11 09/10/23 09:11 Labs: Laboratory Results - last 24 hr 09/10/23 09:11 MCV 85.2 MCH 28.0 MCHC 32.8 RDW 13.0 Plt Count 293 MPV 10.2 Immature Gran % (Auto) 0.2 Neut % (Auto) 61.9 Lymph % (Auto) 29.4 [place] % (Auto) 5.9 Eos % (Auto) 1.8 Baso % (Auto) 0.8 Lymph # (Auto) 1.8 [place] # (Auto) 0.4 Eos # (Auto) 0.1 Baso # (Auto) 0.1 Abs Immat Gran (auto) 0.01 Absolute Neuts (auto) 3.9 Absolute Nucleated RBC 0.000 Nucleated RBC % (auto) 0.0 Anion Gap 9 L Estim Creat Clear Calc 130.6 Estimated GFR > 60 Random Glucose 98 Calcium 9.2 Total Bilirubin 0.6 AST 39 H ALT 68 H Alkaline Phosphatase 62 Total Protein 7.4 Albumin 4.1 Lipase 16 Urine Color Yellow Urine Appearance Clear Urine pH 8.0 Ur Specific [place] <= 1.005 Urine Protein Negative Urine Glucose (UA) Negative Urine Ketones Negative Urine Blood Negative Urine Nitrite Negative Ur Leukocyte Esterase Negative Urine Test NEGATIVE Procedures Date of Service Date of Service: 09/11/23 Progress Note: A&P Assessment and plan (1) Acute appendicitis: Status: Acute Plan The risks, benefits, alternatives of laparoscopic possible open appendectomy were reviewed with the patient and included but not limited to bleeding, infection, recurrence of symptoms, numbness, pain, scarring, bowel or bladder injury or leak and the patient wishes to proceed. All questions answered. Arrangements were made for this for today. Time Spent With Patient Time: Total time managing care of this patient today ____ minutes. Quality Stroke Does the patient have a stroke diagnosis?: No VTE Prior VTE?: No VTE Risk Level:: Surgical - low VTE Device Contraindication: N/A - Device Ordered VTE Drug Contraindication: Treatment Not Indicated
--- NOTE | 2023-09-11 09:28 | PC.NURSE ---
report given to SSS
[2023-09-11 09:42] LABS: MANUAL DIFF FLAG NO
[2023-09-11 09:44] LABS: Basophils Absolute Auto 0.1 X10*3/uL (0.0-0.2); Basophils Percent Auto 0.8 % (0-2); Eosinophils Absolute Auto 0.2 X10*3/uL (0.0-0.4); Eosinophils Percent Auto 2.6 % (0-4); Hematocrit 37.6 % (37.0-47.0); Hemoglobin 12.4 g/dl (12.0-16.0); Imm Gran Abs Auto 0.01 X10*3/uL (0.00-0.03); Imm Gran Pct Auto 0.2 % (0.0-0.4); Lymphocytes Absolute Auto 2.3 X10*3/uL (1.2-4.9); Lymphocytes Percent Auto 35.1 % (20-40); Mean Corpuscular Hemoglobin 28.1 pg (27.0-33.0); Mean Corpuscular Volume 85.3 fL (80.0-98.0); Mean Platelet Volume 10.2 fL (9.4-12.3); Monocytes Absolute Auto 0.5 X10*3/uL (0.1-1.2); Monocytes Percent Auto 6.9 % (2-11); Neutrophils Absolute Auto 3.5 x10*3/uL (2.0-8.3); Neutrophils Percent Auto 54.4 % (45-73); Platelet Count 254 X10*3/uL (160-400); Red Blood Count 4.41 X10*6/uL (4.20-5.50); Red Cell Distribution Width 13.3 % (11.0-16.0); White Blood Count 6.5 X10*3/uL (4.8-10.8)
--- NOTE | 2023-09-11 09:47 | P.CONAN_ITS ---
[facility] Active Problems Active Problems: All Active Problems Acute appendicitis (Acute) Pelvic pain (Acute) Vulvovaginitis (Acute) Well woman exam (Acute) Family planning (Acute) Amenorrhea (Acute) Family History Family History Father Diabetes HTN (hypertension) Mother Diabetes HTN (hypertension) Family history of problems with anesthesia: No Surgical History Surgical History Hx of section History of Problems with Anesthesia: No Social History Social History Household Members: Significant Other and Children Housing: Apartment Alcohol intake: never Patient Tobacco Use Status: Never used Tobacco Smoked in Last 30 Days: No Use of substances other than those prescribed or required for medical reasons: No Advance Directives: No Advance Directives Information Provided: Yes Do you have a plan to hurt others: No Plan Nutrition Risks: No Nutritional Risk Patient : No Current occupational status: employed Current occupation: [employer] Sexual orientation: Straight/Heterosexual Gender identity: Female Meds Allergies Allergy/AdvReac Type Severity Reaction Status Date / Time No Known Allergies Allergy Verified 09/10/23 09:02 [No Known Allergies*] Active Medications: Current Medications Acetaminophen (Acetaminophen 325 Mg Tablet) 650 mg PO Q6H PRN PRN Reason: Pain, Mild (Pain Scale 1-3) Lactated Ringer's (Lr) 1,000 mls @ 80 mls/hr IVCONT .[id number] [facility] Last Admin: 09/11/23 06:00 Dose: 80 mls/hr Piperacillin Sod/Tazobactam (Sod 3.375 gm/ Sodium Chloride) 50 mls @ 100 mls/hr IV Q6H [facility] Last Infusion: 09/11/23 06:00 Dose: Infused Melatonin (Melatonin 3 Mg Tablet) 6 mg PO BEDTIME PRN PRN Reason: Insomnia Morphine Sulfate (Morphine Sulfate 4 Mg/Ml Cartridge) 4 mg IVPUSH Q4H PRN; Protocol PRN Reason: Pain, Severe (Pain Scale 7-10) Ondansetron HCl (Ondansetron Hcl 4 Mg/2 Ml Vial) 4 mg IVPUSH Q8H PRN PRN Reason: Nausea and Vomiting Last Admin: 09/11/23 05:25 Dose: 4 mg Sodium Chloride (0.9 % Sodium Chloride Flush 3 Ml Syringe) 3 ml IVFLUSH [facility] Last Admin: 09/11/23 07:37 Dose: Not Given Sodium Chloride (0.9 % Sodium Chloride Flush 3 Ml Syringe) 3 ml IVFLUSH [facility] Last Admin: 09/11/23 07:37 Dose: Not Given Home Medications ?Medication ?Instructions ?Recorded ?Confirmed ?Last Taken ?Type No Known Home Meds 09/10/23 09/10/23 Unknown History Exam Height,Weight and Vital Signs: Height 5 ft 5 in Weight 86.7 kg Last Vital Signs Temp 98.2 F 09/11/23 06:57 Pulse 97 09/11/23 06:57 Resp 16 09/11/23 06:57 BP 118/69 09/11/23 06:57 Pulse Ox 98 09/11/23 06:57 O2 Del Method Room Air 09/11/23 06:57 Pertinent Lab Results Pertinent Lab Results: Laboratory Tests 09/10/23 09/11/23 09:11 09:37 WBC 6.3 6.5 RBC 4.47 4.41 Hgb 12.5 12.4 Hct 38.1 37.6 MCV 85.2 85.3 MCH 28.0 28.1 MCHC 32.8 33.0 RDW 13.0 13.3 Plt Count 293 254 MPV 10.2 10.2 Immature Gran % (Auto) 0.2 0.2 Neut % (Auto) 61.9 54.4 Lymph % (Auto) 29.4 35.1 [place] % (Auto) 5.9 6.9 Eos % (Auto) 1.8 2.6 Baso % (Auto) 0.8 0.8 Lymph # (Auto) 1.8 2.3 [place] # (Auto) 0.4 0.5 Eos # (Auto) 0.1 0.2 Baso # (Auto) 0.1 0.1 Abs Immat Gran (auto) 0.01 0.01 Absolute Neuts (auto) 3.9 3.5 Absolute Nucleated RBC 0.000 0.000 Nucleated RBC % (auto) 0.0 0.0 Sodium 139 Potassium 3.8 Chloride 105 Carbon Dioxide 29 Anion Gap 9 L BUN 11 Creatinine 0.71 Estim Creat Clear Calc 130.6 Estimated GFR > 60 Random Glucose 98 Calcium 9.2 Total Bilirubin 0.6 AST 39 H ALT 68 H Alkaline Phosphatase 62 Total Protein 7.4 Albumin 4.1 Lipase 16 Urine Color Yellow Urine Appearance Clear Urine pH 8.0 Ur Specific [place] <= 1.005 Urine Protein Negative Urine Glucose (UA) Negative Urine Ketones Negative Urine Blood Negative Urine Nitrite Negative Ur Leukocyte Esterase Negative Urine Test NEGATIVE Airway Mallampati Class: I TM Dist: >3cm Neck ROM: Full Loose/Missing/Broken Teeth: No (braces) Heart: rrr Lungs: cta Assessment and Plan Assessment Anesthesia Assessment: Anesthesia Plan Discussed and Chart Reviewed Final Anesthetic Review Family History of Problems with Anesthesia: No History of Problems with Anesthesia: No NPO: Yes ASA Class: I, II and Emergency Final Preanesthetic Review: No Changes in Pt Med Stat, Meds/Allgs Chart Reviewed, Consent Obtained/Reviewed and Anes Risks/Benef Reviewed Patient Risk: Low Procedure Risk: Intermediate Anesthetic Plan Anesthetic Plan: GA Disposition: Standard PACU
--- NOTE | 2023-09-11 10:18 | PM.DS ---
DS: Providers Provider Date of Service: 09/11/23 Date of admission: 09/11/23 08:22 Date of discharge: 09/11/23 Primary care physician: Ezekiel Gordon MD Attending physician on admission: Henry Valadez Attending physician on discharge: Henry Valadez DS: Diagnosis Discharge Diagnosis (1) Acute appendicitis: Status: Acute DS: Summary Hospital Course Hospital Course: HPI AT ADMISSION: Laney Smith is a 28 year old female with no significant PMH who presented to the ED with c/o acute onset lower abdominal pain. She reports the pain started this morning at 4am and woke her out of sleep. It is severe in nature and constant. It is more centrally located and on the right side. The pain is associated with nausea without vomiting. She denies fever, chills, diarrhea, constipation, sick contacts, vaginal discharge, pelvic pain. She has a history of 2 c sections. Work up in the ED included CBC, BMP which were WNL. Pelvic US showed was without uterine or ovarian pathology recognized. CT ABD/pelvis showed periappendiceal stranding. HOSPITAL COURSE: She was admitted to the surgical service for further treatment of the acute appendicitis. Treatment options were discussed including continuing IV abx and observation vs proceeding with appendectomy. She was started on IV abx, IVF. SHe had persistent RLQ tenderness the following morning and wanted to proceed with surgery. On 09/11/23, laparoscopic appendectomy was performed by Dr. Valadez without complication. The patient tolerated the procedure well. She felt well in recovery and was tolerating liquids with good pain control and felt ready for discharge. She was discharged to home on 09/11/23 in stable condition. She is to follow up in the office in 1 week. Status at Discharge Functional status at discharge: independent ambulation Overall status at discharge: patient is progressing back to baseline Time Attestation Discharge Coordination Time (in mins): 25 Quality: Safe Use of Opioids Does Pt have an Active Cancer Diagnosis on the Problem List?: No Quality: Stroke Does the patient have a stroke diagnosis?: No Physical Exam Vital Signs: Vital Signs: Last Vital Signs Temp 97.2 F 09/11/23 15:45 Pulse 88 09/11/23 15:45 Resp 16 09/11/23 15:45 BP 120/85 09/11/23 15:45 Pulse Ox 98 09/11/23 15:45 O2 Del Method Room Air 09/11/23 15:45 O2 Flow Rate 2 09/11/23 12:27 BMI result Body Mass Index 31.8 Const: General: comfortable, no acute distress and alert Resp: Effort & Inspection: normal respiratory effort GI: Inspection: No distended and Yes incision (dressings c/d/i) Palpation (GI): Soft to palpation, Tenderness to palpation present (GI) (mild incisional) and no guarding Skin: General skin exam: no rashes or lesions noted DS: Data Data Completed and Pending Pending studies at discharge: Pending at discharge 09/11/23 11:47 Surgical [PTH] Routine Discharge Plan Discharge Anticipated Discharge Date/Time: 09/11/23 11:46 Patient Disposition: Home, Self-Care Discharge Diagnosis: Right lower quadrant pain Referrals: Ezekiel Gordon MD [Primary Care Provider] - 1 Week Henry Valadez MD [Physician] - 1 Week Discharge Medications: New hydrocodone-acetaminophen 5-325 mg tablet 1 tab PO Q4-6H PRN (Reason: pain) Qty: 30 0RF Rx Instructions: Partial Fill upon patient request. Discharge Orders: Discharge Order (Routine); Ordered 09/11/23 Ordered By: Henry Valadez Diet: Advance to usual diet Activity on Discharge: No heavy lifting Stand Alone Forms: Patient Portal Discharge page Print Language: [place] Activity Restrictions/Additional Instructions: Ice to wound 20 minutes several times today and tomorrow. May shower in 2 days. Remove outside dressing only. Leave Steri-Strips intact. No strenuous activities Care Plan Goals: Returned to baseline Health Concerns: No new issues Plan of Treatment: Postop convalescence Assessment: Stable Discharge Date/Time: 09/11/23 16:30
--- NOTE | 2023-09-11 11:46 | W.PM.OPN ---
Operative Note Operative Note Date of Service: 09/11/23 Narrative: Preoperative diagnosis: [] Acute appendicitis Postop diagnosis: [] Same Procedure [] laparoscopic appendectomy Surgeon: [] Rory Adaptive Physical Education Specialist: [] Type of Anesthesia: [] General Indication for surgery: [] Patient presents with right lower quadrant pain. Exam demonstrates point tenderness right lower quadrant/McBurney's point. CT scan consistent with appendicitis. Intraoperative findings demonstrated a mildly injected appendix. No other gross intra-abdominal pathology demonstrated aside from adhesions of the patient's prior uterus to her incision. Right ovary within normal limits. No evidence of Meckel's diverticulum. Findings: [] Patient was brought to the operating room, placed on operative table in supine position, after an adequate level of general anesthesia was induced, the patient's abdomen was prepped and draped in usual sterile fashion. Using a supraumbilical curvilinear incision, Nelson technique was used to insufflate abdominal cavity to 15 mm of CO2. Lower midline and suprapubic ports were placed under direct laparoscopic view, the patient positioned in Trendelenburg with tilted to the left. Intraoperative findings were as noted above. Appendix was grasped and brought onto the field. It is mesentery was sequentially taken down using double firing of ligature device. Appendix was then transected at the cecal base using KIRIT stapler. Specimen was placed in an Endo-Catch bag, a retrieved through the umbilical port. Abdominal cavity was copiously irrigated secured hemostasis. All ports removed under direct laparoscopic view. Wounds were closed in the following manner; umbilical wound is fascia reapproximated using interrupted 0 Vicryl sutures. Skin wounds were closed using subcuticular 4-0 Vicryl sutures followed by Steri-Strips and sterile dressings. Wounds were infiltrated 0.5% Marcaine at completion. Sponge, needle, and instrument counts reported correct. Patient tolerated the procedure well and emerged from anesthesia stable condition. EBL minimal
[2023-09-11] MEDS: HYDROmorphone HCl 0.5 MG/0.5 ML SYRINGE IVPUSH (14:29)
[2023-09-11] MEDS: Ondansetron ODT 4 MG TAB.RAPDIS TRANSLINGU (16:18)
== END 2023-09-11 16:30 | disposition home or self-care (01) | DRG 234 ==
LOC: HO.ED 16:16 → HO.SSS 16:26 → HO.EDOVER 09-11 08:22
PROVIDERS: Physician Assistant Surgical; Admitting Provider Surgery; Emergency Provider Emergency Medicine; PCP Family Medicine; Visit Provider Physician Assistant Medical
PROC: 0DTJ4ZZ Resection of Appendix, Percutaneous Endoscopic Approach (ICD-10-PCS; CPT 44970; principal; 2023-09-11 09:50)
DX: K35.80 Unspecified acute appendicitis (principal)
CPT/HCPCS: 44970; 36415; 74177; 76830; 76856; 80053; 81003; 81025; 83690; 85025; 88304; 93975; 99285; J1170; J1885; J2250; J2405; J2543; J2704; J2795; J3010; Q9967

== ENCOUNTER → 2023-09-10 16:13 | Outpatient (BNV) | payer OTHER, SELFPAY | PROVIDERS: Emergency Provider Emergency Medicine; PCP Family Medicine; Visit Provider Physician Assistant Surgical | DX: K35.80 Unspecified acute appendicitis (principal) | CPT/HCPCS: 44970; 99024; 99222; 99233 ==

== ENCOUNTER 2023-09-18 09:28 | Outpatient (AMB) | payer OTHER, SELFPAY ==
--- NOTE | 2023-09-18 09:31 | MHC.OFFVIS ---
Intake Visit Reasons: s/p lap appy Intake Note: Patient here s/p lap appy. Reports incisions healing well. Patient c/o: no longer taking rx pain meds. Had to hot die picker daughter as she was running away and feeling abd pain since then. SX: 09-11-23. Supervisor Heavy Equipment Required: Yes Supervisor Heavy Equipment Name: Stacy INGRAM Accompanied by: Self / Same As Patient Allergies No Known Allergies [No Known Allergies*] Allergy (Verified 09/18/23 09:33) HPI Comments Details: Patient presents for follow-up. Aside from incisional discomfort she is doing well. She is tolerating her diet. Having regular bowel habits. She is increasing her activity level. [facility] Surgical History History of laparoscopic appendectomy (09/11/23) Hx of section Family History Father Diabetes HTN (hypertension) Mother Diabetes HTN (hypertension) Social History Household Members: Significant Other and Children Housing: Apartment Alcohol intake: never Comment: counts correct Patient Tobacco Use Status: Never used Tobacco Current occupational status: employed Current occupation: [employer] Sexual orientation: Straight/Heterosexual Gender identity: Female Female Reproductive History Menstrual Age of Menarche: 14 Physical Exam GI Other: Abdomen is soft. All wounds clean dry and intact healing well Assessment & Plan Assessment & Plan (1) Postop check: Code(s): Z09 - Encounter for follow-up examination after completed treatment for conditions other than malignant neoplasm Category: Surgical Plan Patient has been given local instructions, and O2 resume work after 1 week off with 2 weeks light duty and will follow-up otherwise p.r.n.. All questions answered. Coding Level of Care Code Global (16088) Diagnoses Postop check Z09
== END 2023-09-18 09:39 | disposition home or self-care (01) ==
PROVIDERS: PCP Family Medicine; Visit Provider Surgery
DX: Z09 Encounter for follow-up examination after completed treatment for conditions other than malignant neoplasm (principal)
CPT/HCPCS: 99024

== ENCOUNTER → 2023-09-18 09:28 | Outpatient (BNVA) | payer OTHER, SELFPAY | PROVIDERS: PCP Family Medicine; Visit Provider Surgery | DX: Z09 Encounter for follow-up examination after completed treatment for conditions other than malignant neoplasm (principal); Z98.890 Other specified postprocedural states | CPT/HCPCS: 99212 ==

== ENCOUNTER 2023-10-04 09:54 | Outpatient (AMB) | payer OTHER, SELFPAY ==
--- NOTE | 2023-10-04 10:10 | A.OFFPC_ITS ---
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 Allergies No Known Allergies [No Known Allergies*] Allergy (Verified 10/04/23 10:12) Tobacco use date assessed: 10/04/23 Dental Screening Dental Screen Date: 10/04/23 Did you have a dental visit in the last 12 months?: Yes Did you have a dental problem in the last 6 months where you did not have access to dental care?: No Was dental information given to patient?: Patient has dentist HPI CARPENTER AND JOINER-Requesting Physical Exam HPI Details New patient Prior PCP:?No pcp since here > 2 yrs ago. Had been My pt previously Last office visit/CPE: Acute issue(s): B/L foot swelling -Denies any shortness of breath/chest pa in. Notes foot pain as well. PMHx: HTN x 2 weeks SurgHx: , Appy, FHx: Mom: DM, HTN, HLD Heart disease. Dad: DM, HTN. SocHx: Nonsmoker. EtOH None. No drugs HPI Comments History of Present Illness Details Documentation assistance for Ezekiel Gordon MD, was provided by Desean Rg,? [employer] on 10/04/2023 11:17 AM ROGELIO. I, Dr. Gordon, have read, observed, and verified documentation. [facility] Medical History (Updated 10/04/23 @ 11:26 by Desean gR) Sinusitis Surgical History (Updated 09/18/23 @ 09:37 by Henry Valadez MD) History of laparoscopic appendectomy (09/11/23) Hx of section Family History Father Diabetes HTN (hypertension) Mother Diabetes HTN (hypertension) High cholesterol Social History Household Members: Significant Other and Children Housing: Apartment Alcohol intake: never Comment: counts correct Patient Tobacco Use Status: Never used Tobacco e-Cigarette/Vaping Use: Never Used Current occupational status: employed Current occupation: [employer] Sexual orientation: Straight/Heterosexual Gender identity: Female Vision needs: Yes (She needs to get her eyes checked.) Female Reproductive History Menstrual Age of Menarche: 14 Date of last menstrual period: 09/22/23 Questionnaire PHQ-9 Over the last 2 weeks, how often have you been bothered by any of the following problems? 1. Little interest or pleasure in doing things: not at all 2. Feeling down, depressed, or hopeless: several days 3. Trouble falling or staying asleep, or sleeping too much: several days 4. Feeling tired or having little energy: several days 5. Poor appetite or overeating: several days 6. Feeling bad about yourself - or that you are a failure or have let yourself or your family down: not at all 7. Trouble concentrating on things, such as reading the newspaper or watching television: not at all 8. Moving or speaking so slowly that other people could have noticed. Or the opposite - being so fidgety or restless that you have been moving around a lot more than usual: not at all 9. Thoughts that you would be better off or of hurting yourself in some way: not at all Total score: 4 Depression Screening Interpretation: Negative Depression Screening Done: Yes Source: Developed by Drs. Manuelito Gonzalez, Maryana Lemons, Cameron Kerns and colleagues, with an educational edilberto from [employer]. Thrive Questionnaire Date Thrive assessed: 10/04/23 I am a: Patient What is your living situation today?: I have a steady place to live Within the past 12 months, did the food you bought not last and you didn't have the money to get more?: Never true Within the past 12 months, did you worry whether your food would run out before you got money to buy more?: Never true Do you have trouble paying for medicines?: No Do you have trouble getting transportation to medical appointments?: No Do you have trouble paying your heating and electricity bill?: No Do you have trouble taking care of your child, family member or friend?: No Do you have trouble with day-to-day activities such as bathing, preparing meals, shopping, managing finances, etc.?: No Are you currently unemployed and looking for a job?: No Are you interested in more education?: No THRIVE Score: 0 AUDIT C Alcohol Use Questionnaire (AUDIT-C) 1. How often do you have a drink containing alcohol?: Never 3. How often do you have six or more drinks on one occasion?: Never Total Score: 0 EMERITA-7 AMB Questionnaire EMERITA-7 Date EMERITA - 7 assessed: 10/04/23 Feeling nervous, anxious, or on edge: 1 = Several days Not being able to stop or control worryin = Several days Worrying too much about different things: 1 = Several days Trouble relaxin = More than half the days Being so restless that it is hard to sit still: 0 = Not at all Becoming easily annoyed or irritable: 2 = More than half the days Feeling afraid as if something awful might happen: 3 = Nearly every day Total EMERITA-7 score (0-4 normal; 5-9 mild; 10-14 moderate; 15-21 severe): 10 Source: Developed by Drs. Manuelito Gonzalez, Maryana Lemons, Cameron Kerns and colleagues, with an educational edilberto from [employer]. Physical exam (Primary Care) Vital Signs: Last Vital Signs Pulse 65 10/04/23 10:11 BP 116/64 10/04/23 10:11 Pulse Ox 98 10/04/23 10:11 Oxygen Delivery Method Room Air 10/04/23 10:11 BMI result Body Mass Index 31.2 Tobacco/Smoking Status: Tobacco use Status Tobacco use date assessed 10/04/23 10/04/23 10:14 Patient Tobacco Use Status Never used Tobacco 10/04/23 10:14 e-Cigarette/Vaping Use Never Used 10/04/23 10:14 PHQ-9: PHQ-9 Score PHQ-9: Total score 4 10/04/23 10:23 Depression Screening Interpretation: Negative Thrive Assessment: Date of Thrive Assessment Date Thrive assessed 10/04/23 10/04/23 10:23 Assessment and Plan Assessment & Plan (1) Bilateral swelling of feet: Code(s): M79.89 - Other specified soft tissue disorders Plan: Likely?some?mild?bilateral?venous?insufficiency Elevate?legs Avoid?salt/sodium Can?use?OTC?compression?stockings?p.r.n. (2) History of hypertension: Code(s): Z86.79 - Personal history of other diseases of the circulatory system; Z87.59 - Personal history of other complications of , childbirth and the puerperium Plan: This?has?resolved (3) Laboratory exam ordered as part of routine general medical examination: Code(s): Z00.00 - Encounter for general adult medical examination without abnormal findings Plan: Check?lab Orders: Orders Lipid Panel Today Z00.00 - Encounter for general adult medical examination without abnormal findings Microalbumin, Random (w Creat) Today I10 - Essential (primary) hypertension UA and rflx microscopic Today Z00.00 - Encounter for general adult medical examination without abnormal findings TSH reflex Free T4 Today Z00.00 - Encounter for general adult medical examinati on without abnormal findings CT NG by PCR Today Z11.3 - Encounter for screening for infections with a predominantly sexual mode of transmission Hepatitis B,C Profile Today Z11.3 - Encounter for screening for infections with a predominantly sexual mode of transmission Comprehensive [place]. Panel Fast Today Z00.00 - Encounter for general adult medical examination without abnormal findings Complete Blood Count Auto Diff Today Z00.00 - Encounter for general adult medical examination without abnormal findings HIV Ab/Ag Today Z11.3 - Encounter for screening for infections with a predominantly sexual mode of transmission Syphilis Screen Today Z11.3 - Encounter for screening for infections with a predominantly sexual mode of transmission Coding Level of Care Code New Pt Level 3 (18002) Diagnoses Bilateral swelling of feet M79.89 History of hypertension Z86.79; Z87.59 Laboratory exam ordered as part of routine general medical examination Z00.00
[2023-10-04 10:11] VITALS: BP 116/64; PULSE 65; O2SAT 98; BMI 31.2
== END 2023-10-04 11:40 | disposition home or self-care (01) ==
PROVIDERS: PCP Family Medicine; Visit Provider Family Medicine
DX: M79.89 Other specified soft tissue disorders (principal); Z86.79 Personal history of other diseases of the circulatory system; Z87.59 Personal history of other complications of pregnancy, childbirth and the puerperium; Z00.00 Encounter for general adult medical examination without abnormal findings
CPT/HCPCS: 99203

== ENCOUNTER 2023-10-21 14:40 | Outpatient (AMB) | payer OTHER, SELFPAY ==
--- NOTE | 2023-10-21 14:46 | A.OFFVIS_ITS ---
Vital Signs 10/21/23 14:47 Height 5 ft 5 in Weight 187 lb BMI 31.1 BP 122/86 Blood Pressure Location Rt brachial Position Sitting Pulse 72 Intake Visit Reasons: Umbilical piercing oozing Intake Note: Patient scheduled appointment with concerns near lap appendectomy incision. Hx of lap appy on 09-11-23 Patient c/o: oozing dark brown discharge coming from previous umbilical area piercing that started ? Sales Apprentice Required: Yes Sales Apprentice Name: Stacy INGRAM Accompanied by: Self / Same As Patient Allergies No Known Allergies [No Known Allergies*] Allergy (Verified 10/21/23 14:47) HPI Comments Details: Patient presents for evaluation of some umbilical port site discharge a few days ago. It has since resolved. [facility] Medical History Sinusitis Surgical History (Updated 10/21/23 @ 14:54 by Henry Valadez MD) Postop check History of laparoscopic appendectomy (09/11/23) Hx of section Family History Father Diabetes HTN (hypertension) Mother Diabetes HTN (hypertension) High cholesterol Social History Household Members: Significant Other and Children Housing: Apartment Alcohol intake: never Comment: counts correct Patient Tobacco Use Status: Never used Tobacco e-Cigarette/Vaping Use: Never Used Current occupational status: employed Current occupation: [employer] Sexual orientation: Straight/Heterosexual Gender identity: Female Vision needs: Yes (She needs to get her eyes checked.) Female Reproductive History Menstrual Age of Menarche: 14 Physical Exam Vital Signs: Last Vital Signs Pulse 72 10/21/23 14:47 BP 122/86 10/21/23 14:47 BMI result Body Mass Index 31.1 GI Other: Abdomen is soft. All wounds clean dry and intact. No evidence of any infection, stitch abscess or cellulitis or any other issues. Assessment & Plan Assessment & Plan (1) Postop check: Code(s): Z09 - Encounter for follow-up examination after completed treatment for conditions other than malignant neoplasm Category: Surgical Plan Patient was reassured. At present there was no acute wound issue. All questions answered. She will otherwise follow-up p.r.n. Coding Level of Care Code Global (56681) Diagnoses Postop check Z09
[2023-10-21 14:47] VITALS: BP 122/86; PULSE 72; BMI 31.1
== END 2023-10-21 14:52 | disposition home or self-care (01) ==
PROVIDERS: PCP Family Medicine; Visit Provider Surgery
DX: Z09 Encounter for follow-up examination after completed treatment for conditions other than malignant neoplasm (principal)
CPT/HCPCS: 99024

== ENCOUNTER → 2023-10-21 14:40 | Outpatient (BNVA) | payer OTHER, SELFPAY | PROVIDERS: PCP Family Medicine; Visit Provider Surgery | DX: Z09 Encounter for follow-up examination after completed treatment for conditions other than malignant neoplasm (principal) | CPT/HCPCS: 99212 ==

== ENCOUNTER 2023-11-26 09:29 | Outpatient (REF) | payer OTHER, SELFPAY ==
[2023-11-26 11:11] LABS: MANUAL DIFF FLAG NO
[2023-11-26 11:31] LABS: Appearance Urine Clear; Color Urine Yellow; Glucose Urine UA Negative (Negative); Leukocyte Esterase Urine Negative (Negative); Nitrite Urine Negative (Negative); UMIC TRIGGER UA YES; Urine Blood Large (3+) (Negative); Urine Ketones Negative (Negative); Urine Protein Negative (Neg-Trace)
[2023-11-26 11:35] LABS: Basophils Percent Auto 0.8 % (0-2); Eosinophils Absolute Auto 0.3 X10*3/uL (0.0-0.4); Eosinophils Percent Auto 5.5 % (0-4); Hemoglobin 12.1 g/dl (12.0-16.0); Imm Gran Abs Auto 0.01 X10*3/uL (0.00-0.03); Imm Gran Pct Auto 0.2 % (0.0-0.4); Lymphocytes Absolute Auto 1.6 X10*3/uL (1.2-4.9); Lymphocytes Percent Auto 32.3 % (20-40); Mean Corpuscular HGB Conc 32.7 g/dl (31.0-35.0); Mean Corpuscular Hemoglobin 27.4 pg (27.0-33.0); Mean Corpuscular Volume 83.7 fL (80.0-98.0); Mean Platelet Volume 11.3 fL (9.4-12.3); Monocytes Absolute Auto 0.5 X10*3/uL (0.1-1.2); Monocytes Percent Auto 10.2 % (2-11); Neutrophils Absolute Auto 2.5 x10*3/uL (2.0-8.3); Platelet Count 314 X10*3/uL (160-400); Red Blood Count 4.42 X10*6/uL (4.20-5.50); Red Cell Distribution Width 13.3 % (11.0-16.0); White Blood Count 4.9 X10*3/uL (4.8-10.8)
[2023-11-26 11:35] LABS: Bacteria Urine None Seen (None Seen); Hyaline Casts Urine 0-2 /LPF (0-2); RBC Urine >20 /HPF (0-2); Squamous Epithelial Cell Urine 0-2 /HPF (0-2); WBC Urine 0-5 /HPF (0-5)
[2023-11-26 12:14] LABS: Alanine Aminotransferase 43 U/L (0-31); Albumin Level 3.8 g/dL (3.5-5.0); Alkaline Phosphatase 71 U/L (39-117); Anion Gap 10 (12-20); Aspartate Amino Transferase 31 U/L (5-31); Bilirubin Total 0.4 mg/dL (0.0-1.0); Blood Urea Nitrogen 10 mg/dL (9-16); Calcium 9.1 mg/dL (8.4-10.2); Carbon Dioxide 23 mmol/L (22-29); Chloride 110 mmol/L (96-108); Cholesterol 157 mg/dL (<200); Estimated Glomerular Filt Rate > 60; Glucose Fasting 94 mg/dL (60-99); HDL Cholesterol 41 mg/dL (>40); LDL Cholesterol Calculated 102 mg/dL (<100); Potassium 3.9 mmol/L (3.3-5.1); Sodium 139 mmol/L (135-145); TSH reflex Free T4 1.12 uIU/mL (0.32-4.0); Total Protein 6.9 g/dL (6.5-8.0); Triglycerides 71 mg/dL (<150)
[2023-11-26 12:23] LABS: Creatinine Urine 92.01 mg/dL; Microalbum/Creatinine Ratio Ur 7.6 ug/mg cr (<30)
[2023-11-26 12:24] LABS: HBS Num1 18.07 mIU/mL (0-7.99); HBc Num1 0.77 S/CO (0.00-0.79); HIV AB/AG Nonreactive (Nonreactive); HIV Num 1 0.06 S/CO (0.00-0.99); Hepatitis B Core Antibody Nonreactive (Nonreactive); Hepatitis B Surface Antigen Negative (Negative); ~HepC Num1 0.21 S/CO (0.00-0.79); ~Hepatitis B Surface Antibody REACTIVE (Nonreactive); ~Hepatitis C Antibody Nonreactive (Nonreactive)
[2023-11-26 12:25] LABS: Syphilis Screen Nonreactive (Nonreactive)
[2023-11-26 13:18] LABS: CT PCR NOT DETECTED (Not Detect.); NG PCR NOT DETECTED (Not Detect.)
== END 2023-11-26 09:30 | disposition home or self-care (01) ==
LOC: HO.WFDLDS 09:29
PROVIDERS: Visit Provider Family Medicine
DX: Z00.00 Encounter for general adult medical examination without abnormal findings (principal); Z11.3 Encounter for screening for infections with a predominantly sexual mode of transmission; I10 Essential (primary) hypertension
CPT/HCPCS: 80053; 80061; 81001; 82043; 82570; 84443; 85025; 86704; 86706; 86780; 86803; 87340; 87389; 87491; 87591

== ENCOUNTER 2024-01-16 10:13 | Outpatient (AMB) | payer OTHER, SELFPAY ==
--- NOTE | 2024-01-16 10:19 | A.OFFPC_ITS ---
Vital Signs 01/16/24 10:28 Height 5 ft 5 in Weight 191 lb BMI 31.8 BP 112/68 Blood Pressure Location Rt brachial Position Sitting Respiration 16 Pulse 82 Pulse Source Pulse Oximeter Temp 98.1 F Temp Source Oral Pulse Oximetry (%) 99 Oxygen Delivery Method Room Air Intake Visit Reasons: annual Intake Note: patient here for CPE Hydraulics Teacher Required: No Is last menstrual period known: Yes Last menstrual period: 12/26/23 Post menopausal: No Patient : No Allergies No Known Allergies [No Known Allergies*] Allergy (Verified 01/16/24 10:25) Tobacco use date assessed: 01/16/24 Dental Screening Dental Screen Date: 01/16/24 Did you have a dental visit in the last 12 months?: Yes Did you have a dental problem in the last 6 months where you did not have access to dental care?: No Was dental information given to patient?: Patient has dentist HPI annual HPI Details Patient is a 29-year-old female who presents today for a physical exam. She normally follows with Dr. Gordon. Recently saw her PCP and had labs. Hydraulics Teacher: Teresa ID# [id number] She states she would like to see vascular surgery for her spider veins. They popped up following her 4 years ago and she does not like the way they look. They are not painful. She is aware that insurance may not cover treatment of this. She does complain today of ongoing lower abdominal pain. Symptoms started about a year ago and it feels relatively constant. There is intermittent nausea but no vomiting. No diarrhea or constipation. She did see her marine fire fighter for this and states that she has had urine exams which have been normal. She had a pelvic ultrasound which was reassuring. She did have a CT of the abdomen and pelvis with the ER and it did show possible early appendicitis. She states that this pain in her lower abdomen is more in the pelvic region and is getting worse. She says that she will get some abdominal bloating with this. She often feels full or like there is a mass in her suprapubic region. No weight changes. No abnormal vaginal bleeding or discharge. No fam hx of malignancy. She does have a hx of 2 c sections. She does endorse bilateral breast pain and fullness that started the past year as well. She states that she stopped about 2 years ago and felt fine for the 1st year but now has breast fullness and discomfort. States that she is very sensitive to touch with both breasts. No masses noted. No nipple drainage. Health Care Marketing Manager: utd, scheduled 01/20/24 [facility] Medical History (Updated 01/16/24 @ 10:55 by Donita Nguyen PA-C) Sinusitis Surgical History (Updated 10/21/23 @ 14:54 by Henry Valadez MD) Postop check History of laparoscopic appendectomy (09/11/23) Hx of section Family History Father Diabetes HTN (hypertension) Mother Diabetes HTN (hypertension) High cholesterol Social History Household Members: Significant Other and Children Housing: Apartment Alcohol intake: never Comment: counts correct Patient Tobacco Use Status: Never used Tobacco e-Cigarette/Vaping Use: Never Used Current occupational status: employed Current occupation: [employer] Sexual orientation: Straight/Heterosexual Gender identity: Female Cognitive needs: No Hearing needs: No Vision needs: Yes (She needs to get her eyes checked.) Female Reproductive History Menstrual Age of Menarche: 14 Date of last menstrual period: 12/26/23 Questionnaire PHQ-9 Over the last 2 weeks, how often have you been bothered by any of the following problems? 1. Little interest or pleasure in doing things: several days 2. Feeling down, depressed, or hopeless: not at all 3. Trouble falling or staying asleep, or sleeping too much: not at all 4. Feeling tired or having little energy: not at all 5. Poor appetite or overeating: several days 6. Feeling bad about yourself - or that you are a failure or have let yourself or your family down: not at all 7. Trouble concentrating on things, such as reading the newspaper or watching television: not at all 8. Moving or speaking so slowly that other people could have noticed. Or the opposite - being so fidgety or restless that you have been moving around a lot more than usual: not at all 9. Thoughts that you would be better off or of hurting yourself in some way: not at all Total score: 2 75526 - PHQ-9 Billing: Yes Source: Developed by Drs. Manuelito Gonzalez, Maryana Lemons, Cameron Kerns and colleagues, with an educational edilberto from [employer]. Thrive Questionnaire Date Thrive assessed: 01/16/24 I am a: Patient What is your living situation today?: I have a steady place to live Within the past 12 months, did the food you bought not last and you didn't have the money to get more?: Never true Within the past 12 months, did you worry whether your food would run out before you got money to buy more?: Never true Do you have trouble paying for medicines?: No Do you have trouble getting transportation to medical appointments?: No Do you have trouble paying your heating and electricity bill?: No Do you have trouble taking care of your child, family member or friend?: No Do you have trouble with day-to-day activities such as bathing, preparing meals, shopping, managing finances, etc.?: No Are you currently unemployed and looking for a job?: No Are you interested in more education?: No Please select the resources that you would like help with: None Currently or been in a relationship where the following occur: No concerns reported THRIVE Score: 0 AUDIT C Alcohol Use Questionnaire (AUDIT-C) 1. How often do you have a drink containing alcohol?: Never Total Score: 0 Score Reviewed/Action Taken: Yes EMERITA-7 AMB Questionnaire EMERITA-7 Date EMERITA - 7 assessed: 01/16/24 Feeling nervous, anxious, or on edge: 2 = More than half the days Not being able to stop or control worryin = Not at all Worrying too much about different things: 2 = More than half the days Trouble relaxin = Several days Being so restless that it is hard to sit still: 0 = Not at all Becoming easily annoyed or irritable: 2 = More than half the days Feeling afraid as if something awful might happen: 2 = More than half the days Total EMERITA-7 score (0-4 normal; 5-9 mild; 10-14 moderate; 15-21 severe): 9 Source: Developed by Drs. Manuelito Gonzalez, Maryana Lemons, Cameron Kerns and colleagues, with an educational edilberto from [employer]. EMERITA-7 Assessment Billing EMERITA-7 Assessment Tool: EMERITA-7 Assessment 14762 Physical exam (Primary Care) Vital Signs: Last Vital Signs Temp 98.1 F 01/16/24 10:28 Pulse 82 01/16/24 10:28 Resp 16 01/16/24 10:28 BP 112/68 01/16/24 10:28 Pulse Ox 99 01/16/24 10:28 Oxygen Delivery Method Room Air 01/16/24 10:28 BMI result Body Mass Index 31.8 Tobacco/Smoking Status: Tobacco use Status Tobacco use date assessed 01/16/24 01/16/24 10:25 Patient Tobacco Use Status Never used Tobacco 01/16/24 10:20 e-Cigarette/Vaping Use Never Used 01/16/24 10:20 PHQ-9: PHQ-9 Score PHQ-9: Total score 2 01/16/24 10:43 Thrive Assessment: Date of Thrive Assessment Date Thrive assessed 01/16/24 01/16/24 10:29 Currently or been in a relationship where the following occur: No concerns reported Const Orientation/consciousness: patient oriented x3 HENMT Ears: hearing grossly normal bilaterally and TM's normal bilaterally General nose exam: No nasal polyps present Face and sinus: Yes sinuses nontender Mouth: Normal oral and palatal mucosa present Eyes Pupils: Equal, round and reactive pupils present EOM: EOMs intact bilaterally Neck Neck: Yes full ROM and Yes no lymphadenopathy Thyroid: Thyroid normal Chest Chest palpation & inspection: normal inspection of the chest Resp Auscultation: clear to auscultation bilaterally Cardio Rate: regular rate Rhythm: regular rhythm Heart sounds: S1 normal heart sound present and S2 normal heart sound present Peripheral pulses: Peripheral pulses 2+ throughout GI Other: Soft, tenderness to palpation in the suprapubic region. No rebound tenderness. She does have some mild guarding of the lower abdomen. No palpable abnormality. No CVA tenderness Auscultation: normal bowel sounds Rectal Exam - Female: deferred General: Yes no CVA tenderness Back/Spine/Pelvis Other: Nontender Back: no CVA tenderness Skin General skin exam: no rashes or lesions noted Neuro General: patient oriented x3, gait normal, CN's II-XI intact bilaterally and deep tendon reflexes 2+ bilaterally Cranial nerves: Yes Equal, round and reactive pupils present Motor exam (neuro): 5/5 motor strength present throughout Sensory Exam: double simultaneous stimulation for sensation normal Coordination: [id number]-[id number] test normal and Romberg test negative Extrem General: Yes normal to inspection and Yes full ROM Psych Affect: normal affect Attitude: cooperative Thought process: Normal thought process present Thought content: Normal thought content present Insight: Good insight present (Psych) Judgement: Good judgement present (Psych) Results Reviewed Results Reviewed: Laboratory Tests 11/26/23 09:35 WBC 4.9 RBC 4.42 Hgb 12.1 Hct 37.0 Plt Count 314 Sodium 139 Potassium 3.9 Chloride 110 H Carbon Dioxide 23 Anion Gap 10 L BUN 10 Creatinine 0.64 Estimated GFR > 60 Fasting Glucose 94 Calcium 9.1 Total Bilirubin 0.4 AST 31 ALT 43 H Alkaline Phosphatase 71 Total Protein 6.9 Albumin 3.8 Triglycerides 71 Cholesterol 157 LDL Cholesterol, Calc 102 H HDL Cholesterol 41 TSH 1.12 EXAMINATION: CT ABDOMEN AND PELVIS WITH CONTRAST CLINICAL INFORMATION: Right lower quadrant pain, rule out appendicitis COMPARISON: Same day pelvic ultrasound TECHNIQUE: Multidetector volumetric images were obtained from the superior aspect of the liver through the pubic symphysis following administration 85 mL of Omnipaque 350 intravenous contrast. Sagittal and coronal reformatted images were obtained on the technologist's workstation. Oral contrast: No This CT examination was performed using dose optimization techniques as appropriate, variously including the following: *Automated exposure control *Adjustment of mA and/or kV according to patient size (this includes techniques or standardized protocols for targeted exams where dose is matched to indication/reason for exam; i.e. extremities or head) *Use of iterative reconstruction technique DLP: 702 mGy-cm FINDINGS: HAZARDOUS MATERIALS HANDLER: Nonobstructive bowel pattern LUNG BASES: Nonenlarged heart. No pericardial effusion. Minor dependent atelectasis. LIVER, GALLBLADDER, AND BILIARY TREE: The liver is normal in size, shape, and attenuation. No focal hepatic lesion or biliary ductal dilatation is present. The gallbladder is unremarkable with no evidence of radiopaque gallstones, gallbladder wall thickening, or obvious pericholecystic inflammatory changes. PANCREAS: Unremarkable. SPLEEN: Unremarkable. ADRENAL GLANDS: Unremarkable. KIDNEYS AND URETERS: The kidneys are normal in size, shape, and attenuation. No hydronephrosis, hydroureter, or calculi seen. No perinephric stranding. BLADDER: Unremarkable. GASTROINTESTINAL TRACT: Stomach is decompressed. Bowel pattern is nonobstructive. While not thickened, minimal amount of medial periappendiceal stranding is seen, 3:60, 5:25, 6:71. Minimal stranding inferior and lateral to the appendix seen on 3:65 and 5:23. Mild to moderate fecal retention. ABDOMINAL WALL: Small fat filled umbilical hernia. LYMPH NODES: Normal. VASCULAR: Unremarkable. PELVIC VISCERA: Nabothian cysts. Right sided follicles and 2.3 cm left ovarian cyst, likely corresponding to corpus luteum cyst on same-day ultrasound. Small amount of free pelvic fluid. OSSEOUS STRUCTURES: Unremarkable. CT/CT abdomen pelvis w IV con IMPRESSION: Minimal periappendiceal stranding. Early appendicitis needs to be considered. Small amount of free pelvic fluid, not appreciated on pelvic ultrasound performed earlier in the day. Fleischner guidelines were followed. FINDINGS: Uterus: The uterus is anteverted and measures 13 x 4.4 x 6.9. No visible fibroid. The double wall endometrial thickness is 11 mm. Nabothian cysts are seen. Adnexa: Both ovaries are visualized. There is normal arterial and venous color flow to the ovaries. There is no sonographic evidence of ovarian torsion. There is no pelvic ascites or fluid collection. Right ovary measures 4.7 x 2.8 x 2.9 cm. Previous measurement was 3.2 x 2.1 x 2.2 cm. Volume is 20 mL. Follicles are seen. Left ovary measures 3.8 x 3.2 x 2.8 cm. Previous measurement was 2.9 x 2.1 x 2.5 cm. Volume is 17.8 mL. Involuting corpus luteum seen. US/US pelvic and transvaginal IMPRESSION: No uterine or ovarian pathology recognized. Nabothian cysts. Assessment and Plan Assessment & Plan (1) Lower abdominal pain: Code(s): R10.30 - Lower abdominal pain, unspecified Plan: Ongoing, worsening pain x1 year. Abdominal exam today does elicit some discomfort but she states that this is similar to her baseline. Referral to GI. MRI pelvis ordered. (2) Pain of both breasts: Code(s): N64.4 - Mastodynia Plan: Mammogram and ultrasound ordered. (3) Spider veins of both lower extremities: Code(s): I83.93 - Asymptomatic varicose veins of bilateral lower extremities Plan: Referral to vascular surgery. (4) Routine general medical examination at a health care facility: Code(s): Z00.00 - Encounter for general adult medical examination without abnormal findings Plan: Health maintenance reviewed. Labs reviewed with patient. Orders: Orders MM diagnostic mammo BI Today N64.4 - Mastodynia US breast RT complete Today N64.4 - Mastodynia US breast LT complete Today N64.4 - Mastodynia MR pelvis wo/w con Today R10.2 - Pelvic and perineal pain, R10.30 - Lower abdominal pain, unspecified CT NG by PCR Today R10.2 - Pelvic and perineal pain, R10.30 - Lower abdominal pain, unspecified UA CC w/rflx Micro + Cult Today R10.2 - Pelvic and perineal pain, R10.30 - Lower abdominal pain, unspecified Referrals Vascular Surgery Referral I83.93 - Asymptomatic varicose veins of bilateral lower extremities Gastroenterology Referral R10.30 - Lower abdominal pain, unspecified Coding Level of Care Code Est Pt Prev Care 18-39y(39586) Diagnoses Lower abdominal pain R10.30 Pain of both breasts N64.4 Spider veins of both lower extremities I83.93 Routine general medical examination at a health care facility Z00.00 Additional Codes EMERITA-7 Assessment Billing - EMERITA-7 Assessment Tool: EMERITA-7 Assessment 66954 ([id number])
[2024-01-16 10:28] VITALS: BP 112/68; PULSE 82; RESP 16; TEMP 36.7; O2SAT 99; BMI 31.8
== END 2024-01-16 11:00 | disposition home or self-care (01) ==
PROVIDERS: PCP Family Medicine; Visit Provider Physician Assistant
DX: Z00.00 Encounter for general adult medical examination without abnormal findings (principal); R10.30 Lower abdominal pain, unspecified; N64.4 Mastodynia; I83.93 Asymptomatic varicose veins of bilateral lower extremities
CPT/HCPCS: 99395

== ENCOUNTER 2024-03-16 13:58 | Outpatient (AMB) | payer OTHER, SELFPAY ==
[2024-03-16 14:02] VITALS: BP 130/82; BMI 32.2
--- NOTE | 2024-03-16 14:02 | A.OFFVIS_ITS ---
Vital Signs 03/16/24 14:02 Height 5 ft 5 in Weight 193 lb 8 oz BMI 32.2 BP 130/82 Blood Pressure Location Lt brachial Position Sitting Intake Visit Reasons: Annual/DO NOT RS Allergies No Known Allergies [No Known Allergies*] Allergy (Verified 03/16/24 14:04) Is last menstrual period known: Yes Last menstrual period: 02/25/24 HPI Comments Details: Presenting for annual exam. Complaining of vaginal discharge with no associated vulvovaginal itching or odor Last Pap smear was negative in 03/10 [facility] Medical History Sinusitis Surgical History Postop check History of laparoscopic appendectomy (09/11/23) Hx of section Family History Father Diabetes HTN (hypertension) Mother Diabetes HTN (hypertension) High cholesterol Social History Household Members: Significant Other and Children Housing: Apartment Alcohol intake: never Comment: counts correct Patient Tobacco Use Status: Never used Tobacco e-Cigarette/Vaping Use: Never Used Current occupational status: employed Current occupation: [employer] Sexual orientation: Straight/Heterosexual Gender identity: Female Cognitive needs: No Hearing needs: No Vision needs: Yes (She needs to get her eyes checked.) Female Reproductive History Menstrual Age of Menarche: 14 Duration of menses: 3-5 days Date of last menstrual period: 02/25/24 control method: none Total pregnancies: 4 Full term: 1 Number of Living Children: 3 Ab induced: 2 Multiple births: 2 Date of last pap smear: 03/14/22 History of abnormal pap smear: No History of STI: No Review of Systems Const All systems reviewed & are unremarkable except as noted in HPI and below Card Reports as per HPI Resp Reports as per HPI GI Reports as per HPI and Reports no additional complaints Reports as per HPI Physical Exam Vital Signs: Last Vital Signs BP 130/82 03/16/24 14:02 BMI result Body Mass Index 32.2 Const General: cooperative, healthy appearing and comfortable Chest Chest palpation & inspection: normal inspection of the chest and normal palpation of entire chest wall Breast/axilla inspection: normal inspection of the breasts and normal inspection of the axillae Breast/axilla palpation: normal palpation of the breasts, normal palpation of the axillae and no axillary lymphadenopathy Resp Effort & Inspection: normal respiratory effort Auscultation: clear to auscultation bilaterally Percussion: percussion normal Cardio Palpation: normal PMI Rate: regular rate Rhythm: regular rhythm Heart sounds: no murmurs and no rubs Peripheral pulses: Peripheral pulses 2+ throughout GI Inspection: Yes normal to inspection Palpation (GI): Soft to palpation, nontender, no guarding, not rigid and No hepatosplenomegaly present Percussion: Yes normal to percussion Auscultation: normal bowel sounds Rectal Exam - Female: deferred General: Yes bladder normal to palpation External Female Exam: No lesion Speculum Exam - Vagina: normal appearance of the vagina, normal palpation, normal vaginal discharge and not erythematous Speculum Exam - Cervix: normal appearance of the cervix and normal palpation Bimanual exam- vagina & uterus: normal bimanual exam, normal palpation, uterine size normal, bladder normal to palpation, consistency normal and normal palpation Bimanual Exam- Adnexa, other: normal adnexae, no masses and no tenderness Assessment & Plan Assessment & Plan (1) Well woman exam: Code(s): Z01.419 - Encounter for gynecological examination (general) (routine) without abnormal findings Category: Medical Plan: Pap smear not indicated this year. Counseled the patient about the recommended dietary allowance of 1000 mg of Calcium & 600 IU of vitamin D. The patient was instructed to perform monthly self-breast exams and to schedule an annual exam in a year; All questions answered and the patient verbalized understanding. Instructed the patient to schedule annual exam in a year (2) Vaginal discharge: Code(s): N89.8 - Other specified noninflammatory disorders of vagina Category: Medical Plan: GC/CT with BV panel collected. Will check the results and treat accordingly Coding Level of Care Code Est Pt Prev Care 18-39y(33978) Diagnoses Well woman exam Z01.419 Vaginal discharge N89.8
== END 2024-03-16 14:21 | disposition home or self-care (01) ==
LOC: HO.HWS 13:59
PROVIDERS: PCP Family Medicine; Visit Provider Obstetrics & Gynecology
DX: Z01.419 Encounter for gynecological examination (general) (routine) without abnormal findings (principal); N89.8 Other specified noninflammatory disorders of vagina
CPT/HCPCS: 99395

== ENCOUNTER 2024-03-16 13:58 | Outpatient (REF) | payer OTHER, SELFPAY ==
[2024-03-16 18:18] LABS: Bacterial Vaginosis PCR NEGATIVE (Negative); Candida Group PCR NOT DETECTED (Not Detect); Candida glab krusei PCR NOT DETECTED (Not Detect); Trichomonas vaginalis PCR NOT DETECTED (Not Detect)
[2024-03-17 05:13] LABS: CT PCR NOT DETECTED (Not Detect.); NG PCR NOT DETECTED (Not Detect.)
== END 2024-03-16 13:59 | disposition home or self-care (01) ==
LOC: HO.LNP 13:58
PROVIDERS: PCP Family Medicine; Visit Provider Obstetrics & Gynecology
DX: Z01.419 Encounter for gynecological examination (general) (routine) without abnormal findings (principal); N89.8 Other specified noninflammatory disorders of vagina
CPT/HCPCS: 0352U; 87491; 87591; 99395

== ENCOUNTER 2024-03-30 12:40 | Outpatient (REF) | payer OTHER, SELFPAY ==
--- NOTE | ~2024-03-30 | US_ITS ---
EXAMINATION: US DIAGNOSTIC ULTRASOUND BREAST, BILATERAL CLINICAL INFORMATION: 29-year-old female with diffuse bilateral breast pain. COMPARISON: None available. TECHNIQUE: Ultrasound of the bilateral breasts was performed with real-time upton scale imaging and color Doppler. Because of diffuse pain, both breasts were scanned in all 4 quadrants including the retroareolar regions. FINDINGS: There is no focal suspicious finding. There is no solid mass, architectural abnormality, cystic abnormality, abnormal shadowing, or edema in the soft tissue planes. Only normal breast parenchyma is identified bilaterally. US/US breast BI limited mamm only IMPRESSION: 1. Normal bilateral breast ultrasound. No suspicious findings. No correlate to the regions of diffuse breast pain. 2. Recommend clinical management and follow-up of the patient's symptoms. ASSESSMENT: BI-RADS 1: Negative RECOMMENDATION: 1. Patient should be managed based on the clinical impression. Electronically signed by: Issa Anderson MD 04/28/2024 02:24 PM [facility]
== END 2024-03-30 12:41 | disposition home or self-care (01) ==
LOC: HO.MAMMO 12:40
PROVIDERS: PCP Family Medicine; Visit Provider Physician Assistant
DX: N64.4 Mastodynia (principal)
CPT/HCPCS: 76642

== ENCOUNTER → 2024-03-30 12:45 | Outpatient (BNV) | payer OTHER, SELFPAY | PROVIDERS: PCP Family Medicine; Visit Provider Radiology Diagnostic Radiology | DX: N64.4 Mastodynia (principal) | CPT/HCPCS: 76642 ==

== ENCOUNTER 2024-05-06 10:57 | Outpatient (AMB) | payer OTHER, SELFPAY ==
--- NOTE | 2024-05-06 11:45 | A.OFFPC_ITS ---
Vital Signs 05/06/24 11:48 Height 5 ft 5 in Weight 193 lb 2 oz BMI 32.1 BP 118/62 Blood Pressure Location Rt brachial Position Sitting Respiration 14 Pulse 97 Pulse Source Pulse Oximeter Temp 99.0 F Temp Source Oral Pulse Oximetry (%) 98 Oxygen Delivery Method Room Air Intake Visit Reasons: Follow up with pcp for chronic abdominal pain Intake Note: follow up for abd pain pt feels like it is caused due to constipation due to feeling a ball in her abd sometimes she did she leann and she assured her it can possibly be due to her scarring Allergies No Known Allergies [No Known Allergies*] Allergy (Verified 05/06/24 11:48) Tobacco use date assessed: 01/16/24 Dental Screening Dental Screen Date: 01/16/24 HPI Follow up with pcp for chronic abdominal pain HPI Details 29 y/o female presents to f/u chronic ab dominal pain. Reports chronic intermittent abd. pain. She has an appt. with GI coming up this month. She reports breast pain and she requested a mammogram. Recent imaging was negative. Has had elevated liver enzymes on last check. [facility] Medical History Sinusitis Surgical History Postop check History of laparoscopic appendectomy (09/11/23) Hx of section Family History Father Diabetes HTN (hypertension) Mother Diabetes HTN (hypertension) High cholesterol Social History Household Members: Significant Other and Children Housing: Apartment Alcohol intake: never Comment: counts correct Patient Tobacco Use Status: Never used Tobacco e-Cigarette/Vaping Use: Never Used Current occupational status: employed Current occupation: [employer] Sexual orientation: Straight/Heterosexual Gender identity: Female Cognitive needs: No Hearing needs: No Vision needs: Yes (She needs to get her eyes checked.) Female Reproductive History Menstrual Age of Menarche: 14 Questionnaire Thrive Questionnaire Date Thrive assessed: 01/16/24 EMERITA-7 AMB Questionnaire EMERITA-7 Date EMERITA - 7 assessed: 01/16/24 Source: Developed by Drs. Manuelito Gonzalez, Maryana Lemons, Cameron Kerns and colleagues, with an educational edilberto from [employer]. Review of Systems Const Denies chills, Denies fatigue, Denies fever(s), Denies headache(s) and Denies weakness ENT Denies dizziness and Denies headache(s) Card Denies dyspnea Resp Denies cough, Denies dyspnea, Denies wheezing and Denies other (shortness of breath) GI Reports abdominal pain Musc Denies numbness and Denies tingling Neuro Denies dizziness, Denies headache(s), Denies numbness, Denies tingling and Denies weakness Psych Denies anxiety and Denies depression Endo Denies fatigue Aller/Immun Denies wheezing Physical exam (Primary Care) Vital Signs: Last Vital Signs Temp 99.0 F 05/06/24 11:48 Pulse 97 05/06/24 11:48 Resp 14 05/06/24 11:48 BP 118/62 05/06/24 11:48 Pulse Ox 98 05/06/24 11:48 Oxygen Delivery Method Room Air 05/06/24 11:48 BMI result Body Mass Index 32.1 Tobacco/Smoking Status: Tobacco use Status Tobacco use date assessed 01/16/24 05/06/24 11:52 Patient Tobacco Use Status Never used Tobacco 05/06/24 11:52 e-Cigarette/Vaping Use Never Used 05/06/24 11:52 Thrive Assessment: Date of Thrive Assessment Date Thrive assessed 01/16/24 05/06/24 11:52 Const General: well developed; No acute distress Nutritional Appearance: well nourished Orientation/consciousness: patient oriented x3 [facility]: Yes normocephalic and Yes atraumatic Eyes General: appearance normal, both eyes and all related structures Pupils: Equal, round and reactive pupils present EOM: EOMs intact bilaterally Resp Effort & Inspection: normal respiratory effort GI Other: Abd. pain, no rebound Neuro General: patient oriented x3 and gait normal Cranial nerves: Yes Equal, round and reactive pupils present Psych Affect: normal affect Coding Level of Care Code Est Pt Level 4 (25679) Diagnoses Lower abdominal pain R10.30 Elevated liver enzymes R74.8 Breast pain N64.4 Assessment & Plan Assessment & Plan (1) Lower abdominal pain: Code(s): R10.30 - Lower abdominal pain, unspecified Category: Medical Plan: Patient?has?had?chronic?intermittent?lower?abdominal?pain?primarily?infraumbilic al?though?today?she?notes?some?supraumbilical?tenderness?as?well. Differential?includes uterine?cysts?and?fibroids,?ovarian?causes,?gastrointestinal?causes?including?co nstipation, urinary?system?cause?urinary?tract?infections and?also?includes?abdominal?wall?causes?such?as?hernias. I?did?not?helping?any?hernias?today.??She?does?not have?any?urinary?symptoms?but?has?not?urine?repeated?recently?so?she?will?get?th is?done She?does?not?have?any?bowel?complaints.??Advised?her?t o?hydrate?well.??She?has?an?appointment?with?Gastroenterology?coming?up?this?mon th. She?has?seen?Dr.?Joshua?multiple?times?pelvic?pain.??Has?been?essentially?unrem arkable?and?is?only?shows?nabothian?cysts. Lab?work?has?been?unremarkable. She?did?ask?about?elevated?liver?enzymes?which?had?been?improving?and?I?discusse d?with?her?that?I?do?not?feel?this?is?related?to?her?low?abdomen?pain - see?belo w. She?had?had?an?MRI?ordered?and?they?due?to?language?barrier?it?seems?this?was?ca nceled.??Patient?did?not?intend?to?cancel?this?and?was?expecting?them?to?call?ba ck?for?rescheduling.??I?will?reorder?this. She?will?get?repeat?labs?drawn?including?hCG,?urine?studies?and?CMP I?advised?she?hydrate?well?and?use?warm?compresses?abdomen.??Can?also?use?ibupro fen. (2) Elevated liver enzymes: Code(s): R74.8 - Abnormal levels of other serum enzymes Category: Medical Plan: Patient?has?had?previously?noted?elevated?liver?enzymes Which?at?last?check?had?declined. Continue?to?monitor?and?will?repeat?labs (3) Breast pain: Code(s): N64.4 - Mastodynia Category: Medical Plan: Recent?imaging?was?negative Follow-up?with?your?bruise trimmer Orders: Orders UA and rflx microscopic Today R10.30 - Lower abdominal pain, unspecified, Z00.00 - Encounter for general adult medical examination without abnormal findings CT NG by PCR Today R10.30 - Lower abdominal pain, unspecified, Z11.3 - Encounter for screening for infections with a predominantly sexual mode of transmission Comprehensive [place]. Panel Fast Today R10.30 - Lower abdominal pain, unspecified, Z00.00 - Encounter for general adult medical examination without abnormal findings Complete Blood Count Auto Diff Today R10.30 - Lower abdominal pain, unspecified, Z00.00 - Encounter for general adult medical examination without abnormal findings AMB HCG Urine Test Today R10.30 - Lower abdominal pain, unspecified
[2024-05-06 11:48] VITALS: BP 118/62; PULSE 97; RESP 14; TEMP 37.2; O2SAT 98; BMI 32.1
== END 2024-05-06 13:01 | disposition home or self-care (01) ==
PROVIDERS: PCP Family Medicine; Visit Provider Family Medicine
DX: R10.30 Lower abdominal pain, unspecified (principal); R74.8 Abnormal levels of other serum enzymes; N64.4 Mastodynia

== ENCOUNTER → 2024-05-06 10:57 | Outpatient (BNVA) | payer OTHER, SELFPAY | PROVIDERS: PCP Family Medicine; Visit Provider Family Medicine | DX: R10.30 Lower abdominal pain, unspecified (principal); R74.8 Abnormal levels of other serum enzymes; N64.4 Mastodynia | CPT/HCPCS: 99212 ==

== ENCOUNTER 2024-05-29 11:19 | Outpatient (AMB) | payer OTHER, SELFPAY ==
--- NOTE | 2024-05-29 11:27 | A.OFFVIS_ITS ---
Vital Signs 05/29/24 11:28 Height 5 ft 5 in Weight 193 lb 9.054 oz BMI 32.2 BP 126/62 Blood Pressure Location Rt brachial Position Sitting Pulse 94 Pulse Source Pulse Oximeter Pulse Oximetry (%) 98 Oxygen Delivery Method Room Air Intake Visit Reasons: Abdominal pain Intake Note: NEW PATIENT Reason; Abd pain FINANCIAL ASSISTANT Prior hx of colo/egd? N Concerns/Questions? Lower abd / Pelvic mass. Pt had already seen CANDLE EXTRUSION MACHINE OPERATOR and had this evaluated ~ 3-4 mos ago. Pt states CANDLE EXTRUSION MACHINE OPERATOR is concerned about possible hernia. Pt also reports extensive hx of constipation. Head Turbine Operator Required: Yes Head Turbine Operator Services: Head Turbine Operator Present Head Turbine Operator Name: [id number] Information Interpreted: non-clinical & clinical Accompanied by: Self / Same As Patient Allergies No Known Allergies [No Known Allergies*] Allergy (Verified 05/29/24 11:31) HPI HPI Abdominal pain: Details: 29-year-old female with past medical history of transaminitis, hypertension is here today for initial consultation. Patient was sent to us by her PCP. Patient has been experiencing left lower quadrant pain that sometimes radiates to the middle of her abdomen. Patient reports very constipated, no BM sometimes for 3-4 days. Seen by her OBGYN few months ago ultrasound was done. Patient is worried that this might be some sort of a hernia. Patient reports that the pain gets better after she has a bowel movement. Patient is not eating much of fiber. Admits to not drinking enough water. Denies melena, hematochezia, unintentional weight loss or ribbon like stools. Patient denies any mucus in her stools. Currently is not taking any stool softeners or any laxatives to help her go to the bathroom. Patient denies any nausea or vomiting. Denies dyspepsia, dysphagia or odynophagia. Patient reports occasional postprandial abdominal bloating. History of transaminitis Laboratory Tests 11/26/23 09:35 AST 31 ALT 43 H Alkaline Phosphatase 71 PFSH Medical History Sinusitis Surgical History Postop check History of laparoscopic appendectomy (09/11/23) Hx of section Family History Father Diabetes HTN (hypertension) Mother Diabetes HTN (hypertension) High cholesterol Social History Household Members: Significant Other and Children Housing: Apartment Alcohol intake: never Comment: counts correct Patient Tobacco Use Status: Never used Tobacco e-Cigarette/Vaping Use: Never Used Current occupational status: employed Current occupation: [employer] Sexual orientation: Straight/Heterosexual Gender identity: Female Cognitive needs: No Hearing needs: No Vision needs: Yes (She needs to get her eyes checked.) Female Reproductive History Menstrual Age of Menarche: 14 Review of Systems Const Denies weight gain and Denies weight loss ENT Reports no additional complaints, Denies dysphagia and Denies odynophagia Card Reports no additional complaints Resp Reports no additional complaints GI Reports abdominal pain (Lower abdomen), Denies belching, Denies melena, Denies bloating, Denies change in bowel habits, Reports constipation, Denies dysphagia, Denies excessive flatus, Denies dyspepsia, Denies heartburn, Denies diarrhea, Denies loose stools, Denies nausea, Denies odynophagia and Denies vomiting Musc Reports no additional complaints Neuro Reports no additional complaints Psych Reports no additional complaints Endo Reports no additional complaints Physical Exam Vital Signs: Last Vital Signs Pulse 94 05/29/24 11:28 BP 126/62 05/29/24 11:28 Pulse Ox 98 05/29/24 11:28 Oxygen Delivery Method Room Air 05/29/24 11:28 BMI result Body Mass Index 32.2 Const General: healthy appearing and no acute distress Nutritional Appearance: obese Orientation/consciousness: patient oriented x3 Resp Effort & Inspection: normal respiratory effort, able to speak in complete sentences, no tracheal deviation and symmetric chest movement Auscultation: clear to auscultation bilaterally Cardio Rate: regular rate GI Inspection: Yes normal to inspection, No distended and Yes obesity Palpation (GI): Soft to palpation, not firm, nontender and No hepatosplenomegaly present Auscultation: normal bowel sounds General: Yes no CVA tenderness Back/Spine/Pelvis Back: no CVA tenderness Skin General skin exam: elasticity normal, turgor normal and dry skin Neuro General: patient oriented x3 Psych Appearance: grossly normal Mental Status: mental status grossly normal Assessment & Plan Assessment & Plan (1) Elevated liver enzymes: Code(s): R74.8 - Abnormal levels of other serum enzymes Category: Medical (2) Lower abdominal pain: Code(s): R10.30 - Lower abdominal pain, unspecified Category: Medical (3) Chronic idiopathic constipation: Code(s): K59.04 - Chronic idiopathic constipation (4) Postprandial abdominal bloating: Code(s): R14.0 - Abdominal distension (gaseous) Plan Will repeat liver panel. Patient was encouraged to eat more foods and vegetables. Avoid eating food high in fat and high in salt. Patient will start taking senna. Increase fluid intake and activity to promote better bowel motility. Patient reports postprandial abdominal bloating. Will improve with better bowel movements and diet modification. Discussed with patient low FODMAP diet. List of food recommended as well as list of food to avoid given to patient. Patient will follow-up in 3 months, sooner on as needed basis. She is agreeable to this plan and verbalizes understanding of instructions. She was given the opportunity to ask questions and all questions answered. Thank you for allowing me to participate in her care Orders: Orders TSH reflex Free T4 05/29/24 K59.00 - Constipation, unspecified Vitamin B12 and Folate 05/29/24 R19.7 - Diarrhea, unspecified Liver Panel 05/29/24 R74.01 - Elevation of levels of liver transaminase levels Vitamin D 25-OH (D2 and D3) 05/29/24 E55.9 - Vitamin D deficiency, unspecified Medications: New sennosides (Natural Senna Laxative) 17.2 mg (2 x 8.6 mg) PO BEDTIME 60 tabs 3RF constipation K59.00 - Constipation, unspecified Coding Level of Care Code New Pt Level 4 (61514) Diagnoses Elevated liver enzymes R74.8 Lower abdominal pain R10.30 Chronic idiopathic constipation K59.04 Postprandial abdominal bloating R14.0 Time Spent (min) 45 Comment 30 minutes spent with patient and additional 15 minutes spent reviewing her records
[2024-05-29 11:28] VITALS: BP 126/62; PULSE 94; O2SAT 98; BMI 32.2
== END 2024-05-29 11:47 | disposition home or self-care (01) ==
PROVIDERS: PCP Family Medicine; Visit Provider Nurse Practitioner Family
DX: R74.8 Abnormal levels of other serum enzymes (principal); R10.30 Lower abdominal pain, unspecified; K59.04 Chronic idiopathic constipation; R14.0 Abdominal distension (gaseous)
CPT/HCPCS: 99204

== ENCOUNTER 2024-05-29 11:19 | Outpatient (REF) | payer OTHER, SELFPAY ==
[2024-05-29 13:28] LABS: Alanine Aminotransferase 53 U/L (0-31); Alkaline Phosphatase 75 U/L (39-117); Aspartate Amino Transferase 27 U/L (5-31); Bilirubin Direct 0.1 mg/dL (0.0-0.5); Bilirubin Total 0.4 mg/dL (0.0-1.0); Total Protein 7.3 g/dL (6.5-8.0)
[2024-05-29 13:45] LABS: TSH reflex Free T4 1.24 uIU/mL (0.32-4.0)
[2024-05-29 14:03] LABS: Folate 13.3 ng/mL (> or = 4.0); Vitamin B12 458 pg/mL (200-900)
[2024-06-03 12:37] LABS: Vitamin D 25-OH, D2 <4 ng/mL; Vitamin D 25-OH, D3 17 ng/mL; Vitamin D 25-OH, Total 17 ng/mL (30-100)
== END 2024-05-29 11:20 | disposition home or self-care (01) ==
LOC: HO.LAB 11:19
PROVIDERS: PCP Family Medicine; Visit Provider Nurse Practitioner Family
DX: R19.7 Diarrhea, unspecified (principal); R74.01 Elevation of levels of liver transaminase levels; K59.00 Constipation, unspecified; E55.9 Vitamin D deficiency, unspecified; R10.30 Lower abdominal pain, unspecified; R14.0 Abdominal distension (gaseous)
CPT/HCPCS: 36415; 80076; 82306; 82607; 82746; 84443; 99202

== ENCOUNTER 2024-06-22 12:45 | Outpatient (REF) | payer OTHER, SELFPAY ==
--- OUTSIDE RECORDS SUMMARY | 2024-06-22 14:03 | XMS_ITS | Clinical Summary ---
Author Organization [facility] Address [address] [place] [address] Care Team Providers Care Sales Representative Consultant Name Role Phone Unavailable Primary Care Provider Unavailabl e Social History Tobacco Use Types Packs/Day Years Used Date Smoking Tobacco: Never Assessed Sex and Gender Information Value Date Recorded Sex Assigned at Not on file Gender Identity Not on file Sexual Orientation Not on file Plan of Treatment Health Maintenance Due Date Last Done Comments DTaP,Tdap,and Td Vaccines (1 - Tdap) 01/05/2016 Hepatitis B Vaccines (1 of 3 - 19+ 3-dose series) 01/05/2016 Cervical Cancer Screening: P ap Smear 2018 COVID-19 Vaccine (2023-2 5 season) 2024 Influenza Vaccine (#1) 2024 HIB Vaccines Aged Out No longer eligi ble based on patient's age to complete this topic HPV Vaccines Aged Out No longer eligi ble based on patient's age to complete this topic Hepatitis A Vaccines Aged Out No long er eligible based on patient's age to complete this topic IPV Vaccines Aged Out No longer eligi ble based on patient's age to complete this topic MMR Vaccines Aged Out No longer eligi ble based on patient's age to complete this topic Meningococcal ACWY Vaccine Aged Out N o longer eligible based on patient's age to complete this topic Pneumococcal Vaccine: Pediat rics (0 to 5 Years) and At-Risk Patients (6 to 64 Years) Aged Out No longer eligible b ased on patient's age to complete this topic RSV Immunization Patients Un jose 20 months Aged Out No longer eligible b ased on patient's age to complete this topic Varicella Vaccines Aged Out No longer eligible based on patient's age to complete this topic
[2024-06-29 21:09] LABS: Mumps Virus IgG Antibody <9.00 AU/mL; Rubella IgG Antibody 1.13 Index
== END 2024-06-22 12:46 | disposition home or self-care (01) ==
LOC: HO.WFDLDS 12:45
PROVIDERS: Visit Provider Family Medicine
DX: Z71.85 Encounter for immunization safety counseling (principal)
CPT/HCPCS: 36415; 86735; 86762; 86765

== ENCOUNTER 2024-07-10 14:38 | Outpatient (AMB) | payer OTHER, SELFPAY ==
--- OUTSIDE RECORDS SUMMARY | 2024-07-10 14:56 | XMS_ITS | Clinical Summary ---
Author Organization [facility] Address [address] [place] [address] Care Team Providers Care Management Trainee Name Role Phone Unavailable Primary Care Provider Unavailabl e Social History Tobacco Use Types Packs/Day Years Used Date Smoking Tobacco: Never Assessed Comments Unknown Sex and Gender Information Value Date Recorded Sex Assigned at Not on file Legal Sex Female 11:28 PM EST Gender Identity Not on file Sexual Orientation Not on file Plan of Treatment Health Maintenance Due Date Last Done Comments DTaP,Tdap,and Td Vaccines (1 - Tdap) 01/05/2016 Hepatitis B Vaccines (1 of 3 - 19+ 3-dose series) 01/05/2016 Cervical Cancer Screening: P ap Smear 2018 COVID-19 Vaccine ( - 2023-2 5 season) 2024 Influenza Vaccine (#1) 2024 [...] patient's age to complete this topic Meningococcal B Vacine Aged Out No lo nger eligible based on patient's age to complete [...]
--- NOTE | 2024-07-10 15:17 | A.OFFPC_ITS ---
Vital Signs 07/10/24 15:21 Height 5 ft 5 in Weight 198 lb 6 oz BMI 33.0 BP 120/50 L Blood Pressure Location Rt brachial Position Sitting Respiration 14 Pulse 91 Pulse Source Pulse Oximeter Temp 97.8 F Temp Source Oral Pulse Oximetry (%) 99 Oxygen Delivery Method Room Air Intake Visit Reasons: f/u chronic abdominal pain and labs Intake Note: lab review Device Engineer Required: Yes Device Engineer Language: Insulation Nozzleman Name: hector carlin [id number] Information Interpreted: clinical only Allergies No Known Allergies [No Known Allergies*] Allergy (Verified 07/10/24 15:18) Medication List - Last Reconciled 07/10/24 by Ezekiel Gordon MD cholecalciferol (vitamin D3) 50 mcg PO DAILY sennosides (Natural Senna Laxative) 17.2 mg (2 x 8.6 mg) PO BEDTIME Tobacco use date assessed: 01/16/24 Dental Screening Dental Screen Date: 01/16/24 HPI f/u chronic abdominal pain and labs HPI Details 29 y/o female presents to f/u chronic ab d. pain and labs. Labs drawn 06/01/24. Reviewed labs with pt. Elevated ALT of 40. Had seen GI - Discussed with pt a low FODMAP diet, increased hydration. Was prescribed senna. [facility] Medical History Sinusitis Surgical History Postop check History of laparoscopic appendectomy (09/11/23) Hx of section Family History Father Diabetes HTN (hypertension) Mother Diabetes HTN (hypertension) High cholesterol Social History Household Members: Significant Other and Children Housing: Apartment Alcohol intake: never Comment: counts correct Patient Tobacco Use Status: Never used Tobacco e-Cigarette/Vaping Use: Never Used Current occupational status: employed Current occupation: [employer] Sexual orientation: Straight/Heterosexual Gender identity: Female Cognitive needs: No Hearing needs: No Vision needs: Yes (She needs to get her eyes checked.) Female Reproductive History Menstrual Age of Menarche: 14 Questionnaire PHQ-9 Over the last 2 weeks, how often have you been bothered by any of the following problems? 1. Little interest or pleasure in doing things: nearly every day 2. Feeling down, depressed, or hopeless: not at all 3. Trouble falling or staying asleep, or sleeping too much: not at all 4. Feeling tired or having little energy: not at all 5. Poor appetite or overeating: not at all 6. Feeling bad about yourself - or that you are a failure or have let yourself or your family down: not at all 7. Trouble concentrating on things, such as reading the newspaper or watching television: not at all 8. Moving or speaking so slowly that other people could have noticed. Or the opposite - being so fidgety or restless that you have been moving around a lot more than usual: not at all 9. Thoughts that you would be better off or of hurting yourself in some way: not at all Total score: 3 Source: Developed by Drs. Manuelito Gonzalez, Maryana Lemons, Cameron Kerns and colleagues, with an educational edilberto from [employer]. Thrive Questionnaire Date Thrive assessed: 01/16/24 I am a: Patient What is your living situation today?: I have a steady place to live Within the past 12 months, did the food you bought not last and you didn't have the money to get more?: I choose not to answer this question Within the past 12 months, did you worry whether your food would run out before you got money to buy more?: I choose not to answer this question Do you have trouble paying for medicines?: No Do you have trouble getting transportation to medical appointments?: No Do you have trouble paying your heating and electricity bill?: No Do you have trouble taking care of your child, family member or friend?: No Do you have trouble with day-to-day activities such as bathing, preparing meals, shopping, managing finances, etc.?: No Are you currently unemployed and looking for a job?: No Are you interested in more education?: No Please select the resources that you would like help with: None Currently or been in a relationship where the following occur: I choose not to answer THRIVE Score: 0 AUDIT C Alcohol Use Questionnaire (AUDIT-C) 1. How often do you have a drink containing alcohol?: Monthly or less 2. How many drinks containing alcohol do you have on a typical day when you are drinking?: 3 or 4 3. How often do you have six or more drinks on one occasion?: Less than monthly Total Score: 3 EMERITA-7 AMB Questionnaire EMERITA-7 Date EMERITA - 7 assessed: 01/16/24 Feeling nervous, anxious, or on edge: 1 = Several days Not being able to stop or control worryin = Several days Worrying too much about different things: 1 = Several days Trouble relaxin = Several days Being so restless that it is hard to sit still: 0 = Not at all Becoming easily annoyed or irritable: 1 = Several days Feeling afraid as if something awful might happen: 1 = Several days Total EMERITA-7 score (0-4 normal; 5-9 mild; 10-14 moderate; 15-21 severe): 6 Source: Developed by Drs. Manuelito Gonzalez, Maryana Lemons, Cameron Kerns and colleagues, with an educational edilberto from [employer]. Review of Systems Const Denies chills, Denies fatigue, Denies fever(s), Denies headache(s) and Denies weakness ENT Denies dizziness and Denies headache(s) Card Denies dyspnea Resp Denies cough, Denies dyspnea, Denies wheezing and Denies other (shortness of breath) Musc Denies numbness and Denies tingling Neuro Denies dizziness, Denies headache(s), Denies numbness, Denies tingling and Denies weakness Psych Denies anxiety and Denies depression Endo Denies fatigue Aller/Immun Denies wheezing Physical exam (Primary Care) Vital Signs: Last Vital Signs Temp 97.8 F 07/10/24 15:21 Pulse 91 07/10/24 15:21 Resp 14 07/10/24 15:21 BP 120/50 L 07/10/24 15:21 Pulse Ox 99 07/10/24 15:21 Oxygen Delivery Method Room Air 07/10/24 15:21 BMI result Body Mass Index 33.0 Tobacco/Smoking Status: Tobacco use Status Tobacco use date assessed 01/16/24 07/10/24 15:23 Patient Tobacco Use Status Never used Tobacco 07/10/24 15:23 e-Cigarette/Vaping Use Never Used 07/10/24 15:23 PHQ-9: PHQ-9 Score PHQ-9: Total score 3 07/10/24 15:42 Thrive Assessment: Date of Thrive Assessment Date Thrive assessed 01/16/24 07/10/24 15:23 Currently or been in a relationship where the following occur: I choose not to answer Const General: well developed; No acute distress Nutritional Appearance: well nourished Orientation/consciousness: patient oriented x3 [facility] Head: Yes normocephalic and Yes atraumatic Eyes General: appearance normal, both eyes and all related structures Pupils: Equal, round and reactive pupils present EOM: EOMs intact bilaterally Resp Effort & Inspection: normal respiratory effort Auscultation: clear to auscultation bilaterally Cardio Rate: regular rate Rhythm: regular rhythm Heart sounds: S1 normal heart sound present, S2 normal heart sound present, no gallops, no murmurs and no rubs Neuro General: patient oriented x3 and gait normal Cranial nerves: Yes Equal, round and reactive pupils present Psych Affect: normal affect Coding Level of Care Code Est Pt Level 3 (64938) Diagnoses Abdominal pain R10.9 Elevated liver enzymes R74.8 Immunization counseling Z71.85 Assessment & Plan Assessment & Plan (1) Abdominal pain: Code(s): R10.9 - Unspecified abdominal pain Category: Medical Plan: Improving?somewhat?on?recommendations?from?Gastroenterology?which?include?increa sed?hydration,?FODMAP?diet?and?allow?accident. Follow-up?with?Gastroenterology?as?recommended (2) Elevated liver enzymes: Code(s): R74.8 - Abnormal levels of other serum enzymes Category: Medical Plan: Improving Continue?good?hydration,?weight?loss, avoid?alcohol?and?Tylenol Follow-up?with?GI?as?recommended (3) Immunization counseling: Code(s): Z71.85 - Encounter for immunization safety counseling Category: Medical Plan: MMR?titers?showed?lack?of?immunity?to?mumps. I?had?put?in?an?order?for revaccination?with?MMR.??Patient?wants?to?try?and?get?this?at?her?pharmacy. I?have?put?in?repeat?titers?which?she?can?get?in?about?6?weeks. We?can?follow-up?after?that. Orders: Orders MMR IgG Measles Mumps Rubella 5 Weeks Z71.85 - Encounter for immunization safety counseling
[2024-07-10 15:21] VITALS: BP 120/50; PULSE 91; RESP 14; TEMP 36.6; O2SAT 99; BMI 33.0
== END 2024-07-10 15:54 | disposition home or self-care (01) ==
PROVIDERS: PCP Family Medicine; Visit Provider Family Medicine
DX: R10.9 Unspecified abdominal pain (principal); R74.8 Abnormal levels of other serum enzymes; Z71.85 Encounter for immunization safety counseling

== ENCOUNTER → 2024-07-10 14:38 | Outpatient (BNVA) | payer OTHER, SELFPAY | PROVIDERS: PCP Family Medicine; Visit Provider Family Medicine | DX: R10.9 Unspecified abdominal pain (principal); R74.8 Abnormal levels of other serum enzymes; Z71.85 Encounter for immunization safety counseling | CPT/HCPCS: 99212 ==

== ENCOUNTER 2024-08-26 10:53 | Outpatient (AMB) | payer OTHER, SELFPAY ==
--- NOTE | 2024-08-26 11:00 | A.OFFVIS_ITS ---
Vital Signs 08/26/24 11:01 Height 5 ft 5 in Weight 194 lb 7.163 oz BMI 32.4 BP 108/64 Blood Pressure Location Rt brachial Position Sitting Pulse 82 Pulse Source Pulse Oximeter Pulse Oximetry (%) 99 Oxygen Delivery Method Room Air Intake Visit Reasons: 3 mo abdominal pain Intake Note: ESTABLISHED PATIENT for chronic abd pain and constipation mgmt. Labs done. Chief Complaint; C/O mild, intermittent pain in the umbilical region. Pt reports the pain has a sharp, stabbing like quality and feels like a knot in that area. Also primarily noticeable while lying down. No additional concerns at this time. Custodian Blood Bank Required: Yes Custodian Blood Bank Services: Custodian Blood Bank Present Custodian Blood Bank Name: Donna [id number] Information Interpreted: non-clinical & clinical Accompanied by: Self / Same As Patient Allergies No Known Allergies [No Known Allergies*] Allergy (Verified 08/26/24 11:01) HPI HPI 3 mo abdominal pain: Details: LAST VISIT: Elevated liver enzymes Lower abdominal pain Chronic idiopathic constipation Postprandial abdominal bloating Plan Will repeat liver panel. Patient was encouraged to eat more foods and vegetables. Avoid eating food high in fat and high in salt. Patient will start taking senna. Increase fluid intake and activity to promote better bowel motility. Patient reports postprandial abdominal bloating. Will improve with better bowel movements and diet modification. Discussed with patient low FODMAP diet. List of food recommended as well as list of food to avoid given to patient. Patient will follow-up in 3 months, sooner on as needed basis. She is agreeable to this plan and verbalizes understanding of instructions. She was given the opportunity to ask questions and all questions answered. ? Thank you for allowing me to participate in her care Orders Orders TSH reflex Free T4 05/29/24 K59.00 Vitamin B12 and Folate 05/29/24 R19.7 Liver Panel 05/29/24 R74.01 Vitamin D 25-OH (D2 and D3) 05/29/24 E55.9 Medications New sennosides (Natural Senna Laxative) 17.2 mg (2 x 8.6 mg) PO BEDTIME 60 tabs 3RF constipation K59.00 TODAY VISIT: Patient is here today for follow-up. Patient reports that she has been doing little better, however she continues to have lower abdominal discomfort. Patient reports pain is there almost all the time, not related to meals, worse some days. Patient reports that this pain is not related to her bowel movements. Taking senna daily and she is moving her bowels without any issues. Patient reports had multiple ultrasound done by her OBGYN in the ER as well that did not show any pelvic abnormality. Patient reports that the pain is just bel ow her laparoscopic scar from appendectomy. Patient denies any nausea or vomiting. Occasional blood in his stool once or twice a month usually after bowel movement. Patient denies straining, denies melena PFSH Medical History Sinusitis Surgical History Postop check History of laparoscopic appendectomy (09/11/23) Hx of section Family History Father Diabetes HTN (hypertension) Mother Diabetes HTN (hypertension) High cholesterol Social History Household Members: Significant Other and Children Housing: Apartment Alcohol intake: never Comment: counts correct Patient Tobacco Use Status: Never used Tobacco e-Cigarette/Vaping Use: Never Used Current occupational status: employed Current occupation: [employer] Sexual orientation: Straight/Heterosexual Gender identity: Female Cognitive needs: No Hearing needs: No Vision needs: Yes (She needs to get her eyes checked.) Female Reproductive History Menstrual Age of Menarche: 14 Review of Systems Const Denies weight gain and Denies weight loss ENT Reports no additional complaints, Denies dysphagia and Denies odynophagia Card Reports no additional complaints Resp Reports no additional complaints GI Reports abdominal pain (Lower abdomen), Denies belching, Denies melena, Denies bloating, Denies change in bowel habits, Reports constipation (Improved with senna), Denies dysphagia, Denies excessive flatus, Denies dyspepsia, Denies heartburn, Denies diarrhea, Denies loose stools, Denies nausea, Denies odynophagia and Denies vomiting Musc Reports no additional complaints Neuro Reports no additional complaints Psych Reports no additional complaints Endo Reports no additional complaints Physical Exam Const General: healthy appearing and no acute distress Nutritional Appearance: obese Orientation/consciousness: patient oriented x3 Resp Effort & Inspection: normal respiratory effort, able to speak in complete sentences, no tracheal deviation and symmetric chest movement Auscultation: clear to auscultation bilaterally Cardio Rate: regular rate GI Inspection: Yes normal to inspection, No distended, Yes obesity and Yes scar Palpation (GI): Soft to palpation, not firm, nontender, No hepatosplenomegaly present and Hernia present (Lower abdomen just below post laparoscopic appendectomy scar) Auscultation: normal bowel sounds General: Yes no CVA tenderness Back/Spine/Pelvis Back: no CVA tenderness Skin General skin exam: elasticity normal, turgor normal and dry skin Neuro General: patient oriented x3 Psych Appearance: grossly normal Mental Status: mental status grossly normal Assessment & Plan Assessment & Plan (1) Elevated liver enzymes: Code(s): R74.8 - Abnormal levels of other serum enzymes Category: Medical (2) Lower abdominal pain: Code(s): R10.30 - Lower abdominal pain, unspecified Category: Medical (3) Postprandial abdominal bloating: Code(s): R14.0 - Abdominal distension (gaseous) (4) Chronic idiopathic constipation: Code(s): K59.04 - Chronic idiopathic constipation Plan Patient will continue taking senna daily. Increase fluid intake and activity to promote better bowel motility. On exam small hard round nodule felt just below her post appendectomy laparoscopic scar. Patient also has a history of C- section it could be small adhesion or ventral hernia. Patient will go back to see her surgery, Dr. Valadez. PCP ordered MRI, patient missed the appointment and will call schedulers to book it. Patient will return in 6 months, sooner on as needed basis. She is agreeable to plan of care and verbalizes understanding of instructions. She was given the opportunity to ask questions and all questions answered. Thank you for allowing me to participate in her care Orders: Referrals General Surgery Referral K42.9 - Umbilical hernia without obstruction or gangrene, K43.9 - Ventral hernia without obstruction or gangrene Coding Level of Care Code Est Pt Level 3 (61902) Diagnoses Elevated liver enzymes R74.8 Lower abdominal pain R10.30 Postprandial abdominal bloating R14.0 Chronic idiopathic constipation K59.04 Time Spent (min) 30 Comment 20 minutes spent with patient and additional 10 minutes spent reviewing her records
[2024-08-26 11:01] VITALS: BP 108/64; PULSE 82; O2SAT 99; BMI 32.4
--- OUTSIDE RECORDS SUMMARY | 2024-08-26 12:43 | XMS_ITS | Clinical Summary ---
Author Organization [facility] Address [address] [place] [address] Care Team Providers Care Youth Probation Officer Name Role Phone Unavailable Primary Care Provider [...] age to complete this topic Meningococcal B Vaccine Aged Out No l onger eligible based on patient's age to complete [...]
== END 2024-08-26 11:37 | disposition home or self-care (01) ==
LOC: HO.HGI 10:54
PROVIDERS: PCP Family Medicine; Visit Provider Nurse Practitioner Family
DX: R74.8 Abnormal levels of other serum enzymes (principal); R10.30 Lower abdominal pain, unspecified; R14.0 Abdominal distension (gaseous); K59.04 Chronic idiopathic constipation
CPT/HCPCS: 99213

== ENCOUNTER → 2024-08-26 10:53 | Outpatient (BNVA) | payer OTHER, SELFPAY | PROVIDERS: PCP Family Medicine; Visit Provider Nurse Practitioner Family | DX: R10.30 Lower abdominal pain, unspecified (principal); K59.04 Chronic idiopathic constipation; R14.0 Abdominal distension (gaseous); R74.8 Abnormal levels of other serum enzymes | CPT/HCPCS: 99212 ==

== ENCOUNTER 2024-10-01 09:20 | Outpatient (AMB) | payer OTHER, SELFPAY ==
--- NOTE | 2024-10-01 09:33 | A.OFFVIS_ITS ---
Vital Signs 3 10/01/24 09:39 Height 5 ft 5 in Weight 198 lb 4 oz BMI 33.0 BP 142/66 H Blood Pressure Location Lt brachial Position Sitting Pulse 101 H Intake Visit Reasons: umbilical hernia ( Dr Valadez's pt ) Intake Note: Patient is seen in office for evaluation of an umbilical hernia, post lap appy. Pt c/o: unsure if the hernia was there before or after lap appy, does feel a lump, painful, constipation, straining, blood in stool, taking meds to help with constipation Assembler Tubing Required: Yes Assembler Tubing Language: Marble Mechanic Helper Services: Assembler Tubing Present Assembler Tubing Name: Kelin INGRAM Information Interpreted: non-clinical & clinical Employment Program Representative: Employment Program Representative Present Accompanied by: Self / Same As Patient Allergies No Known Allergies [No Known Allergies*] Allergy (Verified 10/01/24 09:38) Medication List - Last Reconciled 10/01/24 by Evan Diaz MD cholecalciferol (vitamin D3) 50 mcg PO DAILY sennosides (Natural Senna Laxative) 17.2 mg (2 x 8.6 mg) PO BEDTIME HPI Comments Details: 29-year-old female patient presenting with complaints of a palpable lump located in the lower abdomen. She underwent a laparoscopic appendectomy approximately 1 year ago in his unsure if this was present prior to the surgery. She also underwent a previous section through a Pfannenstiel incision and feels it may have developed after this procedure. She has occasional discomfort and feels that the lump occasionally will increase in size. She feels the best when she is laying down. She has constipation but denies fever or chills, nausea or vomiting. [facility] Medical History Sinusitis Surgical History Postop check History of laparoscopic appendectomy (09/11/23) Hx of section Family History Father Diabetes HTN (hypertension) Mother Diabetes HTN (hypertension) High cholesterol Social History Household Members: Significant Other and Children Housing: Apartment Alcohol intake: never Comment: counts correct Patient Tobacco Use Status: Never used Tobacco e-Cigarette/Vaping Use: Never Used Current occupational status: employed Current occupation: [employer] Sexual orientation: Straight/Heterosexual Gender identity: Female Cognitive needs: No Hearing needs: No Vision needs: Yes (She needs to get her eyes checked.) Female Reproductive History Menstrual Age of Menarche: 14 Review of Systems Const All systems reviewed & are unremarkable except as noted in HPI and below Physical Exam Vital Signs: Last Vital Signs Pulse 101 H 10/01/24 09:39 BP 142/66 H 10/01/24 09:39 BMI result Body Mass Index 33.0 Const General: no acute distress Nutritional Appearance: well nourished Orientation/consciousness: patient oriented x3 Limitations: no limitations Resp Effort & Inspection: normal respiratory effort GI Other: Soft, nondistended, nontender, normal bowel sounds, palpable lump located in the lower midline midway between umbilicus and pubis. No significant changes noted with Valsalva maneuvers. Lump appears to measure less than 0.5 cm. Lump is not near her prior laparoscopic incisions but is in the midline which may be related to her prior section. Abdomen image: 2 1. Site of palpable lump Neuro General: patient oriented x3 Extrem General: Yes normal to inspection Assessment & Plan Assessment & Plan (1) Incisional hernia: Code(s): K43.2 - Incisional hernia without obstruction or gangrene Category: Medical Qualifiers: Obstruction and gangrene presence: without obstruction or gangrene Q ualified Code(s): K43.2 - Incisional hernia without obstruction or gangrene Plan 29-year-old female patient with a palpable lump located in the lower midline abdomen which seems to cause discomfort occasionally will increase in size in the later decrease in size. Review of a CT abdomen and pelvis from last year reveals an area of scar tissue and a possible very small incisional hernia at this location. Other possibilities include endometrial implant within the muscular or subcutaneous tissue. Options include observation verses exploratory surgery. If this is a hernia the defect is quite small and can be safely observed. After discussion of the procedure risks and alternatives, she wishes to avoid surgery at this time. She was encouraged to call should the symptoms become more severe or the lump becomes larger. She expressed understanding and agrees with the plan. Coding Level of Care Code Est Pt Level 3 (47822) Diagnoses Incisional hernia, without obstruction or gangrene K43.2 Obstruction and gangrene presence: without obstruction or gangrene
[2024-10-01 09:39] VITALS: BP 142/66; PULSE 101; BMI 33.0
--- OUTSIDE RECORDS SUMMARY | 2024-10-01 09:56 | XMS_ITS | Clinical Summary ---
Author Organization [facility] Address [address] [place] [address] Care Team Providers Care Fire Boat Engineer Name Role Phone Unavailable Primary Care Provider [...] Vaccine (2023-2 5 season) 2024 Influenza Vaccine (Season Ended) 2025 HIB Vaccines Aged Out No longer eligi [...]
== END 2024-10-01 09:49 | disposition home or self-care (01) ==
LOC: HO.HGS 09:21
PROVIDERS: PCP Family Medicine; Visit Provider Surgery
DX: K43.2 Incisional hernia without obstruction or gangrene (principal)
CPT/HCPCS: 99213

== ENCOUNTER → 2024-10-01 09:20 | Outpatient (BNVA) | payer OTHER, SELFPAY | PROVIDERS: PCP Family Medicine; Visit Provider Surgery | DX: K43.2 Incisional hernia without obstruction or gangrene (principal) | CPT/HCPCS: 99212 ==

== ENCOUNTER 2025-02-03 14:45 | Outpatient (AMB) | payer OTHER, SELFPAY ==
--- NOTE | 2025-02-03 14:55 | A.OFFPC_ITS ---
Intake Visit Reasons: Annual - repeat PHQ-9 Intake Note: Physical Dump Truck Driver Off Highway Required: Yes Dump Truck Driver Off Highway Name: [id number] Allergies No Known Allergies (No Known Allergies*) Allergy (Verified 02/03/25 14:57) Tobacco use date assessed: 02/03/25 Dental Screening Dental Screen Date: 02/03/25 Did you have a dental visit in the last 12 months?: Yes Did you have a dental problem in the last 6 months where you did not have access to dental care?: No Was dental information given to patient?: Patient has dentist HPI Annual - repeat PHQ-9 HPI Details Pt is a 30 y/o female who presents today for physical exam. Dump Truck Driver Off Highway: [id number] She complains today of a lump behind the left ear. It has been there for 1 week. It is painful. No sinus pain or pressure. No fever or chills. UTD with dentist. Denies any sick symptoms, difficulty swallowing, night sweats. Spinneret Person: [facility] Medical History Sinusitis Surgical History Postop check History of laparoscopic appendectomy (09/11/23) Hx of section Family History Father Diabetes HTN (hypertension) Mother Diabetes HTN (hypertension) High cholesterol Social History (Updated 02/03/25 @ 15:17 by Chiquis Martel CMA) Household Members: Significant Other and Children Housing: Apartment Alcohol intake: never Comment: counts correct Patient Tobacco Use Status: Never used Tobacco e-Cigarette/Vaping Use: Never Used Current occupational status: employed Current occupation: [employer] Sexual orientation: Straight/Heterosexual Gender identity: Female Cognitive needs: No Hearing needs: No Vision needs: Yes (She needs to get her eyes checked.) Female Reproductive History Menstrual Age of Menarche: 14 Questionnaire PHQ-9 Over the last 2 weeks, how often have you been bothered by any of the following problems? 1. Little interest or pleasure in doing things: not at all 2. Feeling down, depressed, or hopeless: not at all 3. Trouble falling or staying asleep, or sleeping too much: not at all 4. Feeling tired or having little energy: not at all 5. Poor appetite or overeating: not at all 6. Feeling bad about yourself - or that you are a failure or have let yourself or your family down: not at all 7. Trouble concentrating on things, such as reading the newspaper or watching television: not at all 8. Moving or speaking so slowly that other people could have noticed. Or the opposite - being so fidgety or restless that you have been moving around a lot more than usual: not at all 9. Thoughts that you would be better off or of hurting yourself in some way: not at all Total score: 0 Depression Screening Interpretation: Negative Depression Screening Done: Yes 70601 - PHQ-9 Billing: Yes Source: Developed by Drs. Manuelito Gonzalez, Maryana Lemons, Cameron Kerns and colleagues, with an educational edilberto from [employer]. Thrive Questionnaire Date Thrive assessed: 07/10/24 I am a: Patient What is your living situation today?: I have a steady place to live Within the past 12 months, did the food you bought not last and you didn't have the money to get more?: I choose not to answer this question Within the past 12 months, did you worry whether your food would run out before you got money to buy more?: I choose not to answer this question Do you have trouble paying for medicines?: No Do you have trouble getting transportation to medical appointments?: No Do you have trouble paying your heating and electricity bill?: No Do you have trouble taking care of your child, family member or friend?: No Do you have trouble with day-to-day activities such as bathing, preparing meals, shopping, managing finances, etc.?: No Are you currently unemployed and looking for a job?: No Are you interested in more education?: No Please select the resources that you would like help with: None Currently or been in a relationship where the following occur: I choose not to answer THRIVE Score: 0 AUDIT C Alcohol Use Questionnaire (AUDIT-C) 1. How often do you have a drink containing alcohol?: Monthly or less 2. How many drinks containing alcohol do you have on a typical day when you are drinking?: 1 or 2 3. How often do you have six or more drinks on one occasion?: Never Total Score: 1 EMERITA-7 AMB Questionnaire EMERITA-7 Date EMERITA - 7 assessed: 02/03/25 Feeling nervous, anxious, or on edge: 1 = Several days Not being able to stop or control worryin = Not at all Worrying too much about different things: 1 = Several days Trouble relaxin = Not at all Being so restless that it is hard to sit still: 0 = Not at all Becoming easily annoyed or irritable: 0 = Not at all Feeling afraid as if something awful might happen: 0 = Not at all Total EMERITA-7 score (0-4 normal; 5-9 mild; 10-14 moderate; 15-21 severe): 2 Source: Developed by Drs. Manuelito Gonzalez, Maryana Lemons, Cameron carlin nd colleagues, with an educational edilberto from [employer]. EMERITA-7 Assessment Billing MEERITA-7 Assessment Tool: EMERITA-7 Assessment 38636 Physical exam (Primary Care) Tobacco/Smoking Status: Tobacco use Status Tobacco use date assessed 02/03/25 02/03/25 15:12 Patient Tobacco Use Status Never used Tobacco 02/03/25 15:17 e-Cigarette/Vaping Use Never Used 02/03/25 15:17 PHQ-9: PHQ-9 Score PHQ-9: Total score 0 02/03/25 15:28 Depression Screening Interpretation: Negative Thrive Assessment: Date of Thrive Assessment Date Thrive assessed 07/10/24 02/03/25 14:56 Currently or been in a relationship where the following occur: I choose not to answer Const Orientation/consciousness: patient oriented x3 HENMT Other: There is a firm lump in the posterior auricular area Ears: hearing grossly normal bilaterally and TM's normal bilaterally General nose exam: No nasal polyps present Face and sinus: Yes sinuses nontender Mouth: Normal oral and palatal mucosa present Eyes Pupils: Equal, round and reactive pupils present EOM: EOMs intact bilaterally Neck Neck: Yes full ROM and Yes no lymphadenopathy Thyroid: Thyroid normal Chest Chest palpation & inspection: normal inspection of the chest Resp Auscultation: clear to auscultation bilaterally Cardio Rate: regular rate Rhythm: regular rhythm Heart sounds: S1 normal heart sound present and S2 normal heart sound present Peripheral pulses: Peripheral pulses 2+ throughout GI Other: Soft, nontender Auscultation: normal bowel sounds Rectal Exam - Female: deferred General: Yes no CVA tenderness Back/Spine/Pelvis Other: Nontender Back: no CVA tenderness Skin General skin exam: no rashes or lesions noted Neuro General: patient oriented x3, gait normal, CN's II-XI intact bilaterally and deep tendon reflexes 2+ bilaterally Cranial nerves: Yes Equal, round and reactive pupils present Motor exam (neuro): 5/5 motor strength present throughout Sensory Exam: double simultaneous stimulation for sensation normal Coordination: [id number] test normal and Romberg test negative Extrem General: Yes normal to inspection and Yes full ROM Psych Affect: normal affect Attitude: cooperative Thought process: Normal thought process present Thought content: Normal thought content present Insight: Good insight present (Psych) Judgement: Good judgement present (Psych) Coding Level of Care Code Est Pt Prev Care 18-39y(35971) Diagnoses Routine general medical examination at a health care facility Z00.00 Swelling, mass, or lump in head and neck R22.0; R22.1 Additional Codes EMERITA-7 Assessment Billing - EMERITA-7 Assessment Tool: EMERITA-7 Assessment 61295 ([id number]) PHQ-9 - 03429 - PHQ-9 Billing: Yes ([id number]) Assessment & Plan Assessment & Plan (1) Routine general medical examination at a health care facility: Code(s): Z00.00 - Encounter for general adult medical examination without abnormal findings Plan: Health maintenance reviewed. Labs ordered today. We will follow up pending test results (2) Swelling, mass, or lump in head and neck: Code(s): R22.0 - Localized swelling, mass and lump, head; R22.1 - Localized swelling, mass and lump, neck Category: Medical Plan: Ultrasound ordered. Labs ordered. She will let me know if symptoms resolve or if anything worsens or changes over the next week or 2. Orders: Orders Comprehensive [place]. Panel Fast 02/03/25 R22.0 - Localized swelling, mass and lump, head, R22.1 - Localized swelling, mass and lump, neck, Z00.00 - Encounter for general adult medical examination without abnormal findings Lipid Panel 02/03/25 R22.0 - Localized swelling, mass and lump, head, R22.1 - Localized swelling, mass and lump, neck, Z00.00 - Encounter for general adult medical examination without abnormal findings Complete Blood Count Auto Diff 02/03/25 R22.0 - Localized swelling, mass and lump, head, R22.1 - Localized swelling, mass and lump, neck, Z00.00 - Encounter for general adult medical examination without abnormal findings TSH reflex Free T4 02/03/25 R22.0 - Localized swelling, mass and lump, head, R22.1 - Localized swelling, mass and lump, neck, Z00.00 - Encounter for general adult medical examination without abnormal findings Hemoglobin A1c 02/03/25 R22.0 - Localized swelling, mass and lump, head, R22.1 - Localized swelling, mass and lump, neck, R73.01 - Impaired fasting glucose, Z00.00 - Encounter for general adult medical examination without abnormal findings UA CC w/rflx Micro + Cult 02/03/25 R22.0 - Localized swelling, mass and lump, head, R22.1 - Localized swelling, mass and lump, neck, R30.0 - Dysuria, Z00.00 - Encounter for general adult medical examination without abnormal findings US soft tiss head and/or neck 02/03/25 R22.0 - Localized swelling, mass and lump, head, R22.1 - Localized swelling, mass and lump, neck
== END 2025-02-03 15:40 | disposition home or self-care (01) ==
LOC: HO.HMCFM 14:46
PROVIDERS: PCP Family Medicine; Visit Provider Physician Assistant
DX: Z00.00 Encounter for general adult medical examination without abnormal findings (principal); R22.0 Localized swelling, mass and lump, head; R22.1 Localized swelling, mass and lump, neck

== ENCOUNTER → 2025-02-03 14:45 | Outpatient (BNVA) | payer OTHER, SELFPAY | PROVIDERS: PCP Family Medicine; Visit Provider Physician Assistant | DX: Z00.00 Encounter for general adult medical examination without abnormal findings (principal); R22.0 Localized swelling, mass and lump, head; R22.1 Localized swelling, mass and lump, neck | CPT/HCPCS: 96127; 99395 ==

== ENCOUNTER 2025-02-20 09:28 | Outpatient (REF) | payer OTHER, SELFPAY ==
--- OUTSIDE RECORDS SUMMARY | 2025-02-20 09:33 | XMS_ITS | Clinical Summary ---
Author Organization [facility] [[email or web address]] Address [address] [place] [address] Care Team Providers Care Biofuels Production Associate Name Role Phone Unavailable Primary Care Provider [...] Cervical Cancer Screening: P ap Smear 2018 HPV Vaccines (1 - 3-dose SCD M series) 01/05/2024 Depression Screening 05/20/2024 COVID-19 Vaccine ( - 2023-2 5 season) 2025 Influenza Vaccine (#1) 2025 RSV Immunization Adult Patie nts (1 - 1-dose 75+ series) 01/05/2072 HIB Vaccines Aged Out No longer eligi [...] 5 Years) and At-Risk Patients (6 to 49 Years) Aged Out No longer eligible b ased on patient's age to complete this topic RSV Immunization Patients Un jose 20 months Aged Out No longer eligible b ased on patient's age to complete this topic Varicella Vaccines Aged Out No longer eligible based on patient's age to complete this topic
[2025-02-20 09:59] LABS: MANUAL DIFF FLAG NO
[2025-02-20 10:17] LABS: Hematocrit 37.6 % (37.0-47.0); Hemoglobin 12.5 g/dl (12.0-16.0); Imm Gran Abs Auto 0.01 X10*3/uL (0.00-0.03); Imm Gran Pct Auto 0.1 % (0.0-0.4); Lymphocytes Absolute Auto 2.0 X10*3/uL (1.2-4.9); Mean Corpuscular HGB Conc 33.2 g/dl (31.0-35.0); Mean Corpuscular Hemoglobin 27.2 pg (27.0-33.0); Mean Corpuscular Volume 81.7 fL (80.0-98.0); NRBC Abs Auto 0.000 X10*3/uL (0.0-0.012); NRBC Pct Auto 0.0 /100WBC (0.0-0.2); Platelet Count 336 X10*3/uL (160-400); Red Blood Count 4.60 X10*6/uL (4.20-5.50); White Blood Count 7.3 X10*3/uL (4.8-10.8)
[2025-02-20 10:23] LABS: Appearance Urine Clear; Glucose Urine UA Negative (Negative); PH 6.5 (5.0-9.0); Specific Gravity - Urine 1.020 (1.005-1.025); UMIC TRIGGER UACC YES
[2025-02-20 11:02] LABS: Alanine Aminotransferase 79 U/L (0-31); Albumin Level 4.3 g/dL (3.5-5.0); Alkaline Phosphatase 76 U/L (39-117); Anion Gap 10 (12-20); Aspartate Amino Transferase 45 U/L (5-31); Blood Urea Nitrogen 13 mg/dL (9-16); Calcium 9.2 mg/dL (8.4-10.2); Carbon Dioxide 27 mmol/L (22-29); Chloride 106 mmol/L (96-108); Cholesterol 171 mg/dL (<200); Estimated Glomerular Filt Rate > 60; HDL Cholesterol 43 mg/dL (>40); Potassium 4.4 mmol/L (3.3-5.1); Sodium 139 mmol/L (135-145); Total Protein 7.3 g/dL (6.5-8.0); Triglycerides 85 mg/dL (<150)
== END 2025-02-20 09:29 | disposition home or self-care (01) ==
LOC: HO.LAB 09:28
PROVIDERS: PCP Family Medicine; Visit Provider Physician Assistant
DX: Z00.00 Encounter for general adult medical examination without abnormal findings (principal); R22.0 Localized swelling, mass and lump, head; R22.1 Localized swelling, mass and lump, neck; R73.01 Impaired fasting glucose
CPT/HCPCS: 36415; 80053; 80061; 81001; 83036; 84443; 85025

== ENCOUNTER 2025-03-20 09:35 | Outpatient (REF) | payer OTHER, SELFPAY ==
[2025-03-20 10:56] LABS: Appearance Urine Clear; Glucose Urine UA Negative (Negative); PH 6.5 (5.0-9.0); Specific Gravity - Urine 1.025 (1.005-1.025); UMIC TRIGGER UACC YES
[2025-03-20 11:11] LABS: Alanine Aminotransferase 112 U/L (0-31); Albumin Level 4.3 g/dL (3.5-5.0); Alkaline Phosphatase 85 U/L (39-117); Aspartate Amino Transferase 66 U/L (5-31); Gamma Glutamyl Transpeptidase 34 U/L (7-33); Total Protein 7.1 g/dL (6.5-8.0)
[2025-03-20 11:31] LABS: HBsAGNum1 0.30 S/CO (0.00-0.99); Hepatitis B Surface Antigen Negative (Negative); ~HepC Num1 0.10 S/CO (0.00-0.79); ~Hepatitis C Antibody Nonreactive (Nonreactive)
== END 2025-03-20 09:36 | disposition home or self-care (01) ==
LOC: HO.LAB 09:35
PROVIDERS: PCP Family Medicine; Visit Provider Physician Assistant
DX: R94.5 Abnormal results of liver function studies (principal); Z11.59 Encounter for screening for other viral diseases
CPT/HCPCS: 36415; 80076; 81001; 82977; 86803; 87340

== ENCOUNTER 2025-03-22 15:21 | Outpatient (AMB) | payer OTHER, SELFPAY ==
--- NOTE | 2025-03-22 15:26 | MHC.OFFVIS ---
Vital Signs 03/22/25 15:43 Height 5 ft 5 in Weight 198 lb BMI 32.9 BP 130/62 Blood Pressure Location Lt brachial Position Sitting Intake Visit Reasons: pain with hernia site and exacerbated constipation Intake Note: Patient is seen in office for pain in the hernia site and constipation. Pt c/o: admits to increase pain and constipation, has been up to a month with no bm, was able to finally have a bm after 4 pills Wad Blanking Press Adjuster Required: Yes Wad Blanking Press Adjuster Language: Heel Seat Fitter Services: Wad Blanking Press Adjuster Present Wad Blanking Press Adjuster Name: Kelin INGRAM Information Interpreted: non-clinical & clinical Accompanied by: Self / Same As Patient Allergies No Known Allergies (No Known Allergies*) Allergy (Verified 03/23/25 13:47) HPI Comments Details: 30-year-old female returning for follow-up examination of a palpable mass located in the lower abdomen previously evaluated on 10/01/2024. The lump is located in the lower midline abdomen and causes discomfort with palpation. She does note the lump to increase in size prior to her menstrual cycle. This has when it becomes the most painful. She denies any skin changes, redness or discharge. She has a previous history of a section via a Pfannenstiel incision and feels it may be related to this incision. She denies any fever, chills, nausea or vomiting but does report constipation. She frequently requires a stool softener to help with the bowels. [facility] Medical History Sinusitis Surgical History Postop check History of laparoscopic appendectomy (09/11/23) Hx of section Family History Father Diabetes HTN (hypertension) Mother Diabetes HTN (hypertension) High cholesterol Social History Household Members: Significant Other and Children Housing: Apartment Alcohol intake: never Comment: counts correct Patient Tobacco Use Status: Never used Tobacco e-Cigarette/Vaping Use: Never Used Current occupational status: employed Current occupation: [employer] Sexual orientation: Straight/Heterosexual Gender identity: Female Cognitive needs: No Hearing needs: No Vision needs: Yes (She needs to get her eyes checked.) Female Reproductive History Menstrual Age of Menarche: 14 Review of Systems Const All systems reviewed & are unremarkable except as noted in HPI and below Physical Exam Vital Signs: Last Vital Signs BP 130/62 03/22/25 15:43 BMI result Body Mass Index 32.9 Const General: no acute distress Nutritional Appearance: well nourished Orientation/consciousness: patient oriented x3 Limitations: no limitations Resp Effort & Inspection: normal respiratory effort GI Other: Soft, nondistended, nontender, normal bowel sounds, palpable lump located in the lower midline midway between umbilicus and pubis. No significant changes noted with Valsalva maneuvers. Previous lump measured 0.5 cm but now feels much larger perhaps 1.5 cm in diameter. This appears in the midline related to her prior section incision. Findings are suggestive of a endometrial implant (endometriosis). Abdomen image:  1. Site of palpable mass lower midline approximately 1.5 cm diameter. Neuro General: patient oriented x3 Extrem General: Yes normal to inspection Assessment & Plan Assessment & Plan (1) Endometriosis of anterior abdominal wall: Code(s): N80.C19 - Endometriosis of the anterior abdominal wall, unspecified depth Category: Medical Plan 30-year-old female patient returning for re-evaluation of a mass located in the lower abdomen which is painful and seems to increase in size prior to her menstrual cycle. On examination of the lump has increased in size from prior examination but no changes are noted with Valsalva maneuvers. Findings are most consistent with a endometrial implant. I recommended excision of this mass as a short-stay surgery. After discussion of the procedure, risks, and alternatives, she consents to excision of the abdominal wall endometriosis. Coding Level of Care Code Est Pt Level 4 (06728) Diagnoses Endometriosis of anterior abdominal wall N80.C19
[2025-03-22 15:43] VITALS: BP 130/62; BMI 32.9
== END 2025-03-22 15:41 | disposition home or self-care (01) ==
LOC: HO.HGS 15:22
PROVIDERS: PCP Family Medicine; Visit Provider Surgery
DX: N80.C19 Endometriosis of the anterior abdominal wall, unspecified depth (principal)
CPT/HCPCS: 99214

== ENCOUNTER → 2025-03-22 15:21 | Outpatient (BNVA) | payer OTHER, SELFPAY | PROVIDERS: PCP Family Medicine; Visit Provider Surgery | DX: R94.5 Abnormal results of liver function studies (principal); N80.C19 Endometriosis of the anterior abdominal wall, unspecified depth | CPT/HCPCS: 99212 ==

== ENCOUNTER 2025-03-23 13:35 | Outpatient (AMB) | payer OTHER, SELFPAY ==
--- NOTE | 2025-03-23 13:45 | MHC.OFFVIS ---
Vital Signs 03/23/25 13:46 Height 5 ft 5 in Weight 193 lb BMI 32.1 BP 122/84 Intake Visit Reasons: Annual/DO NOT RS Inspector General Required: Yes Inspector General Language: Manager Retention Services: Inspector General Present (in person) Inspector General Name: Rachel INGRAM Information Interpreted: non-clinical & clinical Machine Stripper: Machine Stripper Present (Rachel INGRAM) Accompanied by: Self / Same As Patient Allergies No Known Allergies (No Known Allergies*) Allergy (Verified 03/23/25 13:47) Is last menstrual period known: Yes HPI Comments Details: Presenting for annual exam. Complaining of heavier menstrual cycles associated passage of blood clots and pelvic cramping Last Pap smear was negative in 03/10 [facility] Medical History Sinusitis Surgical History Postop check History of laparoscopic appendectomy (09/11/23) Hx of section Family History Father Diabetes HTN (hypertension) Mother Diabetes HTN (hypertension) High cholesterol Social History Household Members: Significant Other and Children Housing: Apartment Alcohol intake: never Comment: counts correct Patient Tobacco Use Status: Never used Tobacco e-Cigarette/Vaping Use: Never Used Current occupational status: employed Current occupation: [employer] Sexual orientation: Straight/Heterosexual Gender identity: Female Cognitive needs: No Hearing needs: No Vision needs: Yes (She needs to get her eyes checked.) Female Reproductive History Menstrual Age of Menarche: 14 control method: none Total pregnancies: 3 Full term: 2 Number of Living Children: 3 Ab spontaneous: 1 Multiple births: 1 Date of last pap smear: 03/14/22 Review of Systems Const All systems reviewed & are unremarkable except as noted in HPI and below Card Reports as per HPI Resp Reports as per HPI GI Reports as per HPI and Reports no additional complaints Reports as per HPI Physical Exam Vital Signs: Last Vital Signs BP 122/84 03/23/25 13:46 BMI result Body Mass Index 32.1 Const General: cooperative, healthy appearing and comfortable Chest Chest palpation & inspection: normal inspection of the chest and normal palpation of entire chest wall Breast/axilla inspection: normal inspection of the breasts and normal inspection of the axillae Breast/axilla palpation: normal palpation of the breasts, normal palpation of the axillae and no axillary lymphadenopathy Resp Effort & Inspection: normal respiratory effort Auscultation: clear to auscultation bilaterally Percussion: percussion normal Cardio Palpation: normal PMI Rate: regular rate Rhythm: regular rhythm Heart sounds: no murmurs and no rubs Peripheral pulses: Peripheral pulses 2+ throughout GI Inspection: Yes normal to inspection Palpation (GI): Soft to palpation, nontender, no guarding, not rigid and No hepatosplenomegaly present Percussion: Yes normal to percussion Auscultation: normal bowel sounds Rectal Exam - Female: deferred General: Yes bladder normal to palpation External Female Exam: No lesion Speculum Exam - Vagina: normal appearance of the vagina, normal palpation, normal vaginal discharge and not erythematous Speculum Exam - Cervix: normal appearance of the cervix and normal palpation Bimanual exam- vagina & uterus: normal bimanual exam, normal palpation, uterine size normal, bladder normal to palpation, consistency normal and normal palpation Bimanual Exam- Adnexa, other: normal adnexae, no masses and no tenderness Assessment & Plan Assessment & Plan (1) Well woman exam: Code(s): Z01.419 - Encounter for gynecological examination (general) (routine) without abnormal findings Category: Medical Plan: Cotesting done. Counseled the patient about the recommended dietary allowance of 1000 mg of Calcium & 600 IU of vitamin D. The patient was instructed to perform monthly self-breast exams and to schedule an annual exam in a year; All questions answered and the patient verbalized understanding. Instructed the patient to schedule annual exam in a year (2) Abnormal uterine bleeding (AUB): Code(s): N93.9 - Abnormal uterine and vaginal bleeding, unspecified Category: Medical Plan: Co testing done, GC and chlamydia taken CBC, TSH, HCG, and pelvic ultrasound ordered. Discussed with the patient the different causes of abnormal bleeding including thyroid disorders, uterine and ovarian pathology and other potential causes. Discussed with the patient the work up including CBC (to r/o anemia), TSH, pelvic Ultrasound. All questions answered and the patient verbalized understanding. Instructed the patient to schedule an appointment for follow-up in 2 weeks. Orders: Orders CT NG by PCR Vag/Cerv Today Z01.419 - Encounter for gynecological examination (general) (routine) without abnormal findings Complete Blood Count no Diff Today N93.9 - Abnormal uterine and vaginal bleeding, unspecified US pelvic and transvaginal Today N93.9 - Abnormal uterine and vaginal bleeding, unspecified Pap Smear Today Z01.419 - Encounter for gynecological examination (general) (routine) without abnormal findings TSH reflex Free T4 Today N93.9 - Abnormal uterine and vaginal bleeding, unspecified HCG Quantitative Today N93.9 - Abnormal uterine and vaginal bleeding, unspecified Coding Level of Care Code Est Pt Level 3 (09258) Est Pt Prev Care 18-39y(11266) Diagnoses Well woman exam Z01.419 Abnormal uterine bleeding (AUB) N93.9
[2025-03-23 13:46] VITALS: BP 122/84; BMI 32.1
== END 2025-03-23 14:31 | disposition home or self-care (01) ==
PROVIDERS: PCP Family Medicine; Visit Provider Obstetrics & Gynecology
DX: Z01.419 Encounter for gynecological examination (general) (routine) without abnormal findings (principal); N93.9 Abnormal uterine and vaginal bleeding, unspecified
CPT/HCPCS: 99213; 99395; 99459

== ENCOUNTER 2025-03-23 13:35 | Outpatient (REF) | payer OTHER, SELFPAY ==
--- OUTSIDE RECORDS SUMMARY | 2025-03-23 17:09 | XMS_ITS | Clinical Summary ---
Author Organization [facility] Address [address] [place] [address] Care Team Providers Care Manager Telemetry Name Role Phone Unavailable Primary Care Provider [...]
== END 2025-03-23 13:36 | disposition home or self-care (01) ==
LOC: HO.LNP 13:35
PROVIDERS: PCP Family Medicine; Visit Provider Obstetrics & Gynecology
DX: Z01.419 Encounter for gynecological examination (general) (routine) without abnormal findings (principal); N93.9 Abnormal uterine and vaginal bleeding, unspecified
CPT/HCPCS: 88175; 99212; 99395

== ENCOUNTER 2025-03-23 14:16 | Outpatient (REF) | payer OTHER, SELFPAY ==
[2025-03-23 15:04] LABS: Hematocrit 39.3 % (37.0-47.0); Hemoglobin 12.6 g/dl (12.0-16.0); Mean Corpuscular HGB Conc 32.1 g/dl (31.0-35.0); Mean Corpuscular Hemoglobin 26.8 pg (27.0-33.0); Mean Corpuscular Volume 83.4 fL (80.0-98.0); NRBC Abs Auto 0.000 X10*3/uL (0.0-0.012); NRBC Pct Auto 0.0 /100WBC (0.0-0.2); Platelet Count 344 X10*3/uL (160-400); Red Blood Count 4.71 X10*6/uL (4.20-5.50); White Blood Count 6.4 X10*3/uL (4.8-10.8)
[2025-03-23 15:12] LABS: Appearance Urine Clear; Glucose Urine UA Negative (Negative); PH 5.5 (5.0-9.0); Specific Gravity - Urine 1.015 (1.005-1.025)
[2025-03-23 15:35] LABS: Alanine Aminotransferase 108 U/L (0-31); Albumin Level 4.4 g/dL (3.5-5.0); Alkaline Phosphatase 84 U/L (39-117); Aspartate Amino Transferase 45 U/L (5-31); Gamma Glutamyl Transpeptidase 55 U/L (7-33); Total Protein 7.5 g/dL (6.5-8.0)
[2025-03-23 15:49] LABS: Ferritin 9 ng/mL (10-122)
[2025-03-24 00:25] LABS: CT PCR NOT DETECTED (Not Detect.); NG PCR NOT DETECTED (Not Detect.)
[2025-03-31 13:13] LABS: Anti Nuclear Antibody Pattern Nuclear, Speckled; Anti Nuclear Antibody Screen POSITIVE (NEGATIVE); Anti Nuclear Antibody Titer 1:80 titer
== END 2025-03-23 14:17 | disposition home or self-care (01) ==
LOC: HO.LAB 14:16
PROVIDERS: Physician Assistant; PCP Family Medicine; Visit Provider Obstetrics & Gynecology
DX: Z00.00 Encounter for general adult medical examination without abnormal findings (principal); Z01.84 Encounter for antibody response examination; R30.0 Dysuria; R22.0 Localized swelling, mass and lump, head; R22.1 Localized swelling, mass and lump, neck; R94.5 Abnormal results of liver function studies; N93.9 Abnormal uterine and vaginal bleeding, unspecified; R10.30 Lower abdominal pain, unspecified; Z20.2 Contact with and (suspected) exposure to infections with a predominantly sexual mode of transmission
CPT/HCPCS: 36415; 80076; 81003; 82728; 82977; 84443; 84702; 85027; 86015; 86038; 86039; 87491; 87591

== ENCOUNTER → 2025-03-24 10:19 | Outpatient (BNVA) | payer OTHER, SELFPAY | PROVIDERS: PCP Family Medicine; Visit Provider Family Medicine | DX: R74.8 Abnormal levels of other serum enzymes (principal); E78.00 Pure hypercholesterolemia, unspecified; Z71.85 Encounter for immunization safety counseling | CPT/HCPCS: 99212 ==

== ENCOUNTER 2025-03-24 14:50 | Outpatient (AMB) | payer OTHER, SELFPAY ==
--- NOTE | 2025-03-24 15:05 | A.OFFPC_ITS ---
Intake Visit Reasons: lab results from CPE Intake Note: Lab results Tree And Shrub Technician Required: Yes Tree And Shrub Technician Language: Sami Allergies No Known Allergies (No Known Allergies*) Allergy (Verified 03/24/25 14:58) Medication List - Last Reconciled 03/24/25 by Ezekiel Gordon MD sennosides (Natural Senna Laxative) 17.2 mg (2 x 8.6 mg) PO BEDTIME Tobacco use date assessed: 03/24/25 Dental Screening Dental Screen Date: 02/03/25 HPI lab results from CPE HPI Details 30 y/o female presents to f/u labs. Labs drawn 03/23/25. Reviewed labs with pt. Elev. liver enzymes - AST 45, ALT 108. HPI Comments History of Present Illness Details Documentation assistance for Ezekiel Gordon MD, was provided by Desean Rg, Detasseler on 03/24/2025 at 3:31 PM EST. I, Dr. Gordon, have read, observed, and verified documentation. [facility] Medical History Sinusitis Surgical History Postop check History of laparoscopic appendectomy (09/11/23) Hx of section Family History Father Diabetes HTN (hypertension) Mother Diabetes HTN (hypertension) High cholesterol Social History Household Members: Significant Other and Children Housing: Apartment Alcohol intake: never Comment: counts correct Patient Tobacco Use Status: Never used Tobacco e-Cigarette/Vaping Use: Never Used Current occupational status: employed Current occupation: [employer] Sexual orientation: Straight/Heterosexual Gender identity: Female Cognitive needs: No Hearing needs: No Vision needs: Yes (She needs to get her eyes checked.) Female Reproductive History Menstrual Age of Menarche: 14 Questionnaire Thrive Questionnaire Date Thrive assessed: 07/10/24 AUDIT C Alcohol Use Questionnaire (AUDIT-C) 1. How often do you have a drink containing alcohol?: Monthly or less 2. How many drinks containing alcohol do you have on a typical day when you are drinking?: 1 or 2 3. How often do you have six or more drinks on one occasion?: Never Total Score: 1 EMERITA-7 AMB Questionnaire EMERITA-7 Date EMERITA - 7 assessed: 02/03/25 Source: Developed by Drs. Manuelito Gonzalez, Maryana Lemons, Cameron Kerns and colleagues, with an educational edilberto from [employer] Review of Systems Const Denies chills, Denies fatigue, Denies fever(s), Denies headache(s) and Denies weakness ENT Denies dizziness and Denies headache(s) Card Denies dyspnea Resp Denies cough, Denies dyspnea, Denies wheezing and Denies other (shortness of breath) Musc Denies numbness and Denies tingling Neuro Denies dizziness, Denies headache(s), Denies numbness, Denies tingling and Denies weakness Psych Denies anxiety and Denies depression Endo Denies fatigue Aller/Immun Denies wheezing Physical exam (Primary Care) Tobacco/Smoking Status: Tobacco use Status Tobacco use date assessed 03/24/25 03/24/25 15:06 Patient Tobacco Use Status Never used Tobacco 03/24/25 15:06 e-Cigarette/Vaping Use Never Used 03/24/25 15:06 Thrive Assessment: Date of Thrive Assessment Date Thrive assessed 07/10/24 03/24/25 15:06 Const General: well developed; No acute distress Nutritional Appearance: well nourished Orientation/consciousness: patient oriented x3 HENMT Head: Yes normocephalic and Yes atraumatic Eyes General: appearance normal, both eyes and all related structures Pupils: Equal, round and reactive pupils present EOM: EOMs intact bilaterally Resp Effort & Inspection: normal respiratory effort Neuro General: patient oriented x3 and gait normal Cranial nerves: Yes Equal, round and reactive pupils present Psych Affect: normal affect Coding Level of Care Code Est Pt Level 4 (06616) Diagnoses Elevated liver enzymes R74.8 Elevated LDL cholesterol level E78.00 Immunization counseling Z71.85 Assessment & Plan Assessment & Plan (1) Elevated liver enzymes: Code(s): R74.8 - Abnormal levels of other serum enzymes Category: Medical Plan: Ongoing elevated liver enzymes. Patient had CT abdomen last year which did not show any mass Hepatitis labs negative Patient has lab work including autoimmune testing pending She has an upcoming appointment with Gastroenterology. 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 Advised lifestyle changes for elevated LDL cholesterol MMR?titers?showed?lack?of?immunity?to?mumps.??She?will?get?revaccinated?and?she? can?recheck?her?immune?status?blood?work?prior?to?visit. Orders: Orders Lipid Panel Today E78.00 - Pure hypercholesterolemia, unspecified, Z00.00 - Encounter for general adult medical examination without abnormal findings MMR Immunization Today Z23 - Encounter for immunization Comprehensive [place]. Panel Fast Today E78.00 - Pure hypercholesterolemia, unspecified, Z00.00 - Encounter for general adult medical examination without abnormal findings MMR IgG Measles Mumps Rubella Today Z71.85 - Encounter for immunization safety counseling Medications: New M-M-R II (PF) (measles,mumps,rubella vacc(PF)) 0.5 mL subcut ONCE 1 ea 0RF NS Z23 - Encounter for immunization
== END 2025-03-24 15:51 | disposition home or self-care (01) ==
LOC: HO.HMCFM 14:50
PROVIDERS: PCP Family Medicine; Visit Provider Family Medicine
DX: R74.8 Abnormal levels of other serum enzymes (principal); E78.00 Pure hypercholesterolemia, unspecified; Z71.85 Encounter for immunization safety counseling

== ENCOUNTER 2025-03-29 15:47 | Outpatient (AMB) | payer OTHER, SELFPAY ==
--- NOTE | 2025-03-29 16:16 | AM.OFFVISNUR ---
Intake Visit Reasons: mmr vaccine Allergies No Known Allergies (No Known Allergies*) Allergy (Verified 03/24/25 14:58) Immunizations M-M-R II (PF) 1,000-12,500 TCID50/0.5 mL subcutaneous solution Performing Provider: Ezekiel Gordon MD [facility] [place] [facility] Administered by: Cyn Stuart LPN on 03/29/25 16:17 Dose Route Admin Location Dispensed Lot Number Expiration Date [facility] Recreation Adviser 0.5 mL subcut Left Arm 0.5 mL [id number] 07/13/26 2102-2695-54 [employer] Total Dispensed Waste 0.5 mL 0 % VIS Given Date VIS Provided VIS Publication Date 03/29/25 Single Vaccine 24 Eligibility Eligibility Date Funding Source Not [facility] Eligible 03/29/25 Private Assessment & Plan Assessment & Plan Orders: Orders MMR Immunization Today Z23 - Encounter for immunization Coding
--- OUTSIDE RECORDS SUMMARY | 2025-03-29 17:46 | XMS_ITS | Clinical Summary ---
Author Organization [facility] Address [address] [place] [address] Care Team Providers Care Cigarette Seller Name Role Phone Unavailable Primary Care Provider [...] series) 01/05/2024 Depression Screening 05/20/2024 COVID-19 Vaccine (1 - 2024-2 6 season) 2025 Influenza Vaccine (#1) 2025 RSV [...]
== END 2025-03-29 16:18 | disposition home or self-care (01) ==
LOC: HO.HMCH 15:48
PROVIDERS: PCP Family Medicine; Visit Provider Family Medicine
DX: Z23 Encounter for immunization (principal)

== ENCOUNTER → 2025-03-29 15:47 | Outpatient (BNVA) | payer OTHER, SELFPAY | PROVIDERS: PCP Family Medicine; Visit Provider Family Medicine | DX: Z23 Encounter for immunization (principal) | CPT/HCPCS: 90471; 90707 ==

== ENCOUNTER 2025-04-02 08:29 | Outpatient (REF) | payer OTHER, SELFPAY ==
--- OUTSIDE RECORDS SUMMARY | 2025-04-02 08:42 | XMS_ITS | Clinical Summary ---
Author Organization [facility] Address [address] [place] [address] Care Team Providers Care Inspector Open Die Name Role Phone Unavailable Primary Care Provider [...]
[2025-04-02 09:44] LABS: Alanine Aminotransferase 85 U/L (0-31); Albumin Level 4.5 g/dL (3.5-5.0); Alkaline Phosphatase 82 U/L (39-117); Anion Gap 9 (12-20); Aspartate Amino Transferase 50 U/L (5-31); Blood Urea Nitrogen 15 mg/dL (9-16); Calcium 9.6 mg/dL (8.4-10.2); Carbon Dioxide 27 mmol/L (22-29); Chloride 107 mmol/L (96-108); Cholesterol 168 mg/dL (<200); Estimated Glomerular Filt Rate > 60; HDL Cholesterol 45 mg/dL (>40); Potassium 4.3 mmol/L (3.3-5.1); Sodium 139 mmol/L (135-145); Total Protein 7.6 g/dL (6.5-8.0); Triglycerides 77 mg/dL (<150)
[2025-04-03 06:28] LABS: Rubeola IgG (Measles) 25.40 AU/mL
== END 2025-04-02 08:30 | disposition home or self-care (01) ==
LOC: HO.LAB 08:29
PROVIDERS: Absent Provider Obstetrics & Gynecology; PCP Family Medicine; Visit Provider Family Medicine
DX: Z00.00 Encounter for general adult medical examination without abnormal findings (principal); Z01.84 Encounter for antibody response examination; Z71.85 Encounter for immunization safety counseling; E78.00 Pure hypercholesterolemia, unspecified
CPT/HCPCS: 36415; 80053; 80061; 86735; 86762; 86765

== ENCOUNTER 2025-04-23 14:29 | Outpatient (AMB) | payer OTHER, SELFPAY ==
--- NOTE | 2025-04-23 14:34 | MHC.PC.OV ---
Vital Signs 04/23/25 14:38 Height 5 ft 5 in Weight 194 lb 6 oz BMI 32.3 BP 114/60 Blood Pressure Location Rt brachial Position Sitting Respiration 15 Pulse 62 Pulse Source Pulse Oximeter Temp 97.8 F Temp Source Temporal Artery Scan Pulse Oximetry (%) 94 Oxygen Delivery Method Room Air Intake Visit Reasons: nausea, dizzy, tired x 1 week Intake Note: Laney presents in the office today for a sock visit. She has been experiencing nausea, dizziness and fatigue for one week. Today she has a pain in the URQ. Tube Test Technician Required: Yes Tube Test Technician Name: Natividad [email or web address] Information Interpreted: non-clinical & clinical Entry Specialists: Not Required per policy Is last menstrual period known: Yes Last menstrual period: 04/23/25 Post menopausal: No Patient : No Allergies No Known Allergies (No Known Allergies*) Allergy (Verified 04/23/25 14:37) Medication List - Last Reconciled 04/23/25 by Ezekiel Gordon MD sennosides (Natural Senna Laxative) 17.2 mg (2 x 8.6 mg) PO BEDTIME Tobacco use date assessed: 04/23/25 Dental Screening Dental Screen Date: 04/23/25 Did you have a dental visit in the last 12 months?: Yes Did you have a dental problem in the last 6 months where you did not have access to dental care?: No Was dental information given to patient?: Patient has dentist HPI nausea, dizzy, tired x 1 week HPI Details 30 y/o female presents today with complaints of nausea, dizziness, fatigue x1 week. Reports some abd. discomfort, RUQ. Also reports significant RLQ tenderness. Notes she has had her appendix taken out. She recently saw her obstetrics gynecology md for abnormal uterine bleeding. test at that time was negative. [facility] Medical History Sinusitis Surgical History Postop check History of laparoscopic appendectomy (09/11/23) Hx of section Family History Father Diabetes HTN (hypertension) Mother Diabetes HTN (hypertension) High cholesterol Social History (Updated 04/23/25 @ 14:38 by Wendy Helton CMA) Household Members: Significant Other and Children Housing: Apartment Alcohol intake: never Comment: counts correct Patient Tobacco Use Status: Never used Tobacco e-Cigarette/Vaping Use: Never Used Second Hand Smoke Exposure: No Use of substances other than those prescribed or required for medical reasons: No Patient : No Current occupational status: employed Current occupation: [employer] Sexual orientation: Straight/Heterosexual Gender identity: Female Cognitive needs: No Hearing needs: No Vision needs: Yes (She needs to get her eyes checked.) Female Reproductive History Menstrual Age of Menarche: 14 Date of last menstrual period: 04/23/25 Questionnaire Thrive Questionnaire Date Thrive assessed: 07/10/24 I am a: Patient What is your living situation today?: I have a steady place to live Within the past 12 months, did the food you bought not last and you didn't have the money to get more?: I choose not to answer this question Within the past 12 months, did you worry whether your food would run out before you got money to buy more?: I choose not to answer this question Do you have trouble paying for medicines?: No Do you have trouble getting transportation to medical appointments?: No Do you have trouble paying your heating and electricity bill?: No Do you have trouble taking care of your child, family member or friend?: No Do you have trouble with day-to-day activities such as bathing, preparing meals, shopping, managing finances, etc.?: No Are you currently unemployed and looking for a job?: No Are you interested in more education?: No Please select the resources that you would like help with: None Currently or been in a relationship where the following occur: I choose not to answer THRIVE Score: 0 EMERITA-7 AMB Questionnaire EMERITA-7 Date EMERITA - 7 assessed: 02/03/25 Source: Developed by Drs. Manuelito Gonzalez, Maryana Lemons, Cameron Kerns and colleagues, with an educational edilberto from [employer]. Review of Systems Const Reports fatigue, Denies headache(s) and Denies weakness ENT Denies dizziness and Denies headache(s) Card Denies dyspnea Resp Denies cough, Denies dyspnea, Denies wheezing and Denies other (shortness of breath) GI Reports abdominal pain and Reports nausea Musc Denies numbness and Denies tingling Neuro Denies dizziness, Denies headache(s), Denies numbness, Denies tingling and Denies weakness Psych Denies anxiety and Denies depression Endo Reports fatigue Aller/Immun Denies wheezing Physical exam (Primary Care) Vital Signs: Last Vital Signs Temp 97.8 F 04/23/25 14:38 Pulse 62 04/23/25 14:38 Resp 15 04/23/25 14:38 BP 114/60 04/23/25 14:38 Pulse Ox 94 04/23/25 14:38 Oxygen Delivery Method Room Air 04/23/25 14:38 BMI result Body Mass Index 32.3 Tobacco/Smoking Status: Tobacco use Status Tobacco use date assessed 04/23/25 04/23/25 14:43 Patient Tobacco Use Status Never used Tobacco 04/23/25 14:38 e-Cigarette/Vaping Use Never Used 04/23/25 14:38 Thrive Assessment: Date of Thrive Assessment Date Thrive assessed 07/10/24 04/23/25 14:36 Currently or been in a relationship where the following occur: I choose not to answer Const General: well developed; No acute distress Nutritional Appearance: well nourished Orientation/consciousness: patient oriented x3 [facility] Head: Yes normocephalic and Yes atraumatic Eyes General: appearance normal, both eyes and all related structures Pupils: Equal, round and reactive pupils present EOM: EOMs intact bilaterally Resp Effort & Inspection: normal respiratory effort Neuro General: patient oriented x3 and gait normal Cranial nerves: Yes Equal, round and reactive pupils present Psych Affect: normal affect Results AMB Test Urine AMB Test Urine Negative Last Edit by Wendy Helton CMA on 04/23/25 15:33 AMB Urinalysis Dipstick UR Leukocytes Negative Last Edit by Wendy Helton CMA on 04/23/25 15:35 UR Nitrite Negative Last Edit by Wendy Helton CMA on 04/23/25 15:35 UR Urobilinogen Normal Last Edit by Wendy Helton CMA on 04/23/25 15:35 UR Protein Trace Last Edit by Wendy Helton CMA on 04/23/25 15:35 UR Ph 6.0 Last Edit by Wendy Helton CMA on 04/23/25 15:35 UR Blood Small Last Edit by Wendy Helton CMA on 04/23/25 15:35 UR Specific [place] 1.030 Last Edit by Wendy Helton CMA on 04/23/25 15:35 UR Ketone Negative Last Edit by Wendy Helton CMA on 04/23/25 15:35 UR Bilirubin Negative Last Edit by Wendy Helton CMA on 04/23/25 15:35 UR Glucose Negative Last Edit by Wendy Helton CMA on 04/23/25 15:35 Coding Level of Care Code Est Pt Level 4 (33476) Diagnoses Nausea R11.0 Fatigue R53.83 Abdominal pain R10.9 Abnormal uterine bleeding (AUB) N93.9 Assessment & Plan Assessment & Plan (1) Nausea: Code(s): R11.0 - Nausea Category: Medical (2) Fatigue: Code(s): R53.83 - Other fatigue Category: Medical (3) Abdominal pain: Code(s): R10.9 - Unspecified abdominal pain Category: Medical (4) Abnormal uterine bleeding (AUB): Code(s): N93.9 - Abnormal uterine and vaginal bleeding, unspecified Category: Medical Plan 30-year-old female with history of abdominal pain, uterine bleeding, appendectomy and history patient presents with right upper and right lower quadrant pain and tenderness. She also notes some nausea and fatigue. No significant dysuria no CVA TTP. No sick contacts Pain is not changed by eating bowel movements Patient also has mildly dry mucous membranes. She recently saw her obstetrics gynecology md for abnormal uterine bleeding. test at that time was negative. Repeat test today is negative In office urine dip test positive for blood however patient is menstruating. Otherwise unremarkable. She has an ultrasound of her abdomen already ordered due to abnormal liver enzymes. She has an ultrasound of pelvis ordered by her obstetrics gynecology md due to abnormal uterine bleeding. This is scheduled May. Check labs including CBC will send urine for urinalysis Check KUB Advised bowel rest with a clear liquid diet, advancing diet as tolerated following day. Minimum 64-72 Oz water per day & electrolytes Will give her a script for MiraLax. Follow-up on lab work & imaging. Short. script for ondansetron to help keep fluids down. Orders: Orders Comprehensive Met. Panel Today R10.9 - Unspecified abdominal pain Complete Blood Count Auto Diff Today R10.9 - Unspecified abdominal pain, Z00.00 - Encounter for general adult medical examination without abnormal findings UA CC w/rflx Micro + Cult Today R10.9 - Unspecified abdominal pain, Z00.00 - Encounter for general adult medical examination without abnormal findings XR KUB Today R10.9 - Unspecified abdominal pain AMB HCG Urine Test Today R10.9 - Unspecified abdominal pain, R11.0 - Nausea AMB Urinalysis Dipstick Today Z13.9 - Encounter for screening, unspecified Medications: New polyethylene glycol 3350 (Miralax) 17 grams PO DAILY 14 ea 0RF 14 days ondansetron 4 mg PO Q8H PRN 12 tabs 0RF nausea and vomiting 4 days Refilled sennosides (Natural Senna Laxative) 17.2 mg (2 x 8.6 mg) PO BEDTIME 60 tabs 3RF constipation K59.00 - Constipation, unspecified
[2025-04-23 14:38] VITALS: BP 114/60; PULSE 62; RESP 15; TEMP 36.6; O2SAT 94; BMI 32.3
--- OUTSIDE RECORDS SUMMARY | 2025-04-23 18:36 | XMS_ITS | Clinical Summary ---
Author Organization [facility] Address [address] [place] [address] Care Team Providers Care Real Estate Office Manager Name Role Phone Unavailable Primary Care Provider [...]
== END 2025-04-23 15:43 | disposition home or self-care (01) ==
LOC: HO.HMCFM 14:30
PROVIDERS: PCP Family Medicine; Visit Provider Family Medicine
DX: R11.0 Nausea (principal); R53.83 Other fatigue; R10.9 Unspecified abdominal pain; N93.9 Abnormal uterine and vaginal bleeding, unspecified; R10.30 Lower abdominal pain, unspecified; Z13.9 Encounter for screening, unspecified

== ENCOUNTER 2025-04-23 14:29 | Outpatient (REF) | payer OTHER, SELFPAY ==
[2025-04-23 18:31] LABS: MANUAL DIFF FLAG NO
[2025-04-23 18:31] LABS: Appearance Urine Turbid; Glucose Urine UA Negative (Negative); PH 5.5 (5.0-9.0); Specific Gravity - Urine >= 1.030 (1.005-1.025); UMIC TRIGGER UACC YES
[2025-04-23 18:36] LABS: Hematocrit 37.6 % (37.0-47.0); Hemoglobin 12.0 g/dl (12.0-16.0); Imm Gran Abs Auto 0.01 X10*3/uL (0.00-0.03); Imm Gran Pct Auto 0.2 % (0.0-0.4); Lymphocytes Absolute Auto 2.0 X10*3/uL (1.2-4.9); Mean Corpuscular HGB Conc 31.9 g/dl (31.0-35.0); Mean Corpuscular Hemoglobin 27.0 pg (27.0-33.0); Mean Corpuscular Volume 84.5 fL (80.0-98.0); NRBC Abs Auto 0.000 X10*3/uL (0.0-0.012); NRBC Pct Auto 0.0 /100WBC (0.0-0.2); Platelet Count 363 X10*3/uL (160-400); Red Blood Count 4.45 X10*6/uL (4.20-5.50); White Blood Count 6.4 X10*3/uL (4.8-10.8)
[2025-04-23 19:22] LABS: Alanine Aminotransferase 87 U/L (0-31); Albumin Level 4.4 g/dL (3.5-5.0); Alkaline Phosphatase 79 U/L (39-117); Anion Gap 9 (12-20); Aspartate Amino Transferase 45 U/L (5-31); Blood Urea Nitrogen 20 mg/dL (9-16); Calcium 9.0 mg/dL (8.4-10.2); Carbon Dioxide 28 mmol/L (22-29); Chloride 107 mmol/L (96-108); Estimated Glomerular Filt Rate > 60; Potassium 4.0 mmol/L (3.3-5.1); Sodium 140 mmol/L (135-145); Total Protein 7.3 g/dL (6.5-8.0)
== END 2025-04-23 14:30 | disposition home or self-care (01) ==
LOC: HO.WFDLDS 14:29
PROVIDERS: PCP Family Medicine; Visit Provider Family Medicine
DX: Z00.00 Encounter for general adult medical examination without abnormal findings (principal); Z01.419 Encounter for gynecological examination (general) (routine) without abnormal findings; R10.9 Unspecified abdominal pain
CPT/HCPCS: 36415; 80053; 81001; 81002; 81025; 85025; 99212

== ENCOUNTER 2025-04-23 16:06 | Outpatient (REF) | payer OTHER, SELFPAY ==
--- NOTE | ~2025-04-23 | XR_ITS ---
EXAMINATION: XR ABDOMEN KUB CLINICAL INDICATION: R10.9 - Unspecified abdominal pain COMPARISON: Previous CT of the abdomen and pelvis August 2023 TECHNIQUE: AP view of the abdomen. FINDINGS: The bowel gas pattern is normal with no evidence of ileus or obstruction. No free air. Linear radiopaque density seen in the right lower quadrant suggestive of surgical staple line. This measures 1.9 cm in length. This is a new finding from prior CT August 2023. No unusual soft tissue calcifications are noted. The bones are unremarkable. XR/XR KUB IMPRESSION: 1.9 cm linear density in the right lower quadrant probably representing a surgical staple line. This is new from prior CT of the abdomen and pelvis August 2023. Correlation with patient's surgical history recommended. Otherwise unremarkable exam. Electronically signed by: Leonor Saavedra MD 04/23/2025 04:35 PM ROGELIO
== END 2025-04-23 16:07 | disposition home or self-care (01) ==
LOC: HO.XRAY 16:06
PROVIDERS: PCP Family Medicine; Visit Provider Family Medicine
DX: R10.9 Unspecified abdominal pain (principal)
CPT/HCPCS: 74018

== ENCOUNTER → 2025-04-23 16:10 | Outpatient (BNV) | payer OTHER, SELFPAY | PROVIDERS: PCP Family Medicine; Visit Provider Radiology Diagnostic Radiology | DX: R10.31 Right lower quadrant pain (principal) | CPT/HCPCS: 74018 ==

== ENCOUNTER 2025-05-10 14:07 | Outpatient (AMB) | payer OTHER, SELFPAY ==
--- NOTE | 2025-05-10 14:09 | MHC.PC.OV ---
Vital Signs 05/10/25 14:13 Height 5 ft 5 in Weight 195 lb 8 oz BMI 32.5 BP 119/58 L Blood Pressure Location Lt brachial Position Sitting Respiration 16 Pulse 89 Pulse Source Pulse Oximeter Temp 98.0 F Temp Source Oral Pulse Oximetry (%) 99 Oxygen Delivery Method Room Air Intake Visit Reasons: f/u labs, xray /Gastro questions Intake Note: patient here for follow up on labs, xray and has GI questions Senior Operations Manager Required: Yes Senior Operations Manager Name: la Mccord Information Interpreted: non-clinical & clinical Is last menstrual period known: Yes Last menstrual period: 04/19/25 Post menopausal: No Patient : No Allergies No Known Allergies (No Known Allergies*) Allergy (Verified 05/12/25 14:38) Tobacco use date assessed: 05/10/25 Dental Screening Dental Screen Date: 05/10/25 Did you have a dental visit in the last 12 months?: Yes Did you have a dental problem in the last 6 months where you did not have access to dental care?: No Was dental information given to patient?: Patient has dentist HPI f/u labs, xray /Gastro questions HPI Details Patient presents to follow up on Abdominal discomfort and labs. Has had elevated liver enzymes. She was concerned regarding mild elevation in JUNIE, She also notes FH Von Willebrands and says she has easy bruising PFSH Medical History Sinusitis Surgical History Postop check History of laparoscopic appendectomy (09/11/23) Hx of section Family History Father Diabetes HTN (hypertension) Mother Diabetes HTN (hypertension) High cholesterol Social History Household Members: Significant Other and Children Housing: Apartment Alcohol intake: never Comment: counts correct Patient Tobacco Use Status: Never used Tobacco e-Cigarette/Vaping Use: Never Used Second Hand Smoke Exposure: No service: No Current occupational status: employed Current occupation: [employer] Current occupational exposures/hazards: No Sexual orientation: Straight/Heterosexual Gender identity: Female Cognitive needs: No Hearing needs: No Vision needs: Yes (She needs to get her eyes checked.) Female Reproductive History Menstrual Age of Menarche: 14 Date of last menstrual period: 04/19/25 Questionnaire Thrive Questionnaire Date Thrive assessed: 07/10/24 I am a: Patient What is your living situation today?: I have a steady place to live Within the past 12 months, did the food you bought not last and you didn't have the money to get more?: I choose not to answer this question Within the past 12 months, did you worry whether your food would run out before you got money to buy more?: I choose not to answer this question Do you have trouble paying for medicines?: No Do you have trouble getting transportation to medical appointments?: No Do you have trouble paying your heating and electricity bill?: No Do you have trouble taking care of your child, family member or friend?: No Do you have trouble with day-to-day activities such as bathing, preparing meals, shopping, managing finances, etc.?: No Are you currently unemployed and looking for a job?: No Are you interested in more education?: No Currently or been in a relationship where the following occur: I choose not to answer THRIVE Score: 0 EMERITA-7 AMB Questionnaire EMERITA-7 Date EMERITA - 7 assessed: 02/03/25 Source: Developed by Drs. Manuelito Gonzalez, Maryana Lemons, Cameron Kerns and colleagues, with an educational edilberto from [employer]. Review of Systems Const Denies chills, Denies fatigue, Denies fever(s), Denies headache(s) and Denies weakness ENT Denies dizziness and Denies headache(s) Card Denies chest pain, Denies lightheadedness, Denies dyspnea and Denies other (Palpitations) Resp Denies cough, Denies dyspnea, Denies wheezing and Denies other ( shortness of breath) GI Details: Recurrent abdominal discomfort and Nausea Musc Denies numbness and Denies tingling Neuro Denies dizziness, Denies headache(s), Denies numbness, Denies tingling, Denies paresthesias and Denies weakness Psych Denies anxiety and Denies depression Endo Denies fatigue Aller/Immun Denies wheezing Physical exam (Primary Care) Vital Signs: Last Vital Signs Temp 98.0 F 05/10/25 14:13 Pulse 89 05/10/25 14:13 Resp 16 05/10/25 14:13 BP 119/58 L 05/10/25 14:13 Pulse Ox 99 05/10/25 14:13 Oxygen Delivery Method Room Air 05/10/25 14:13 BMI result Body Mass Index 32.5 Tobacco/Smoking Status: Tobacco use Status Tobacco use date assessed 05/10/25 05/10/25 14:16 Patient Tobacco Use Status Never used Tobacco 05/10/25 14:11 e-Cigarette/Vaping Use Never Used 05/10/25 14:11 Thrive Assessment: Date of Thrive Assessment Date Thrive assessed 07/10/24 05/10/25 14:11 Currently or been in a relationship where the following occur: I choose not to answer Const General: no acute distress and well developed Nutritional Appearance: well nourished Orientation/consciousness: patient oriented x3 HENMT Head: Yes normocephalic and Yes atraumatic Eyes General: appearance normal, both eyes and all related structures Pupils: Equal, round and reactive pupils present EOM: EOMs intact bilaterally Resp Effort & Inspection: normal respiratory effort Auscultation: clear to auscultation bilaterally Cardio Rate: regular rate Rhythm: regular rhythm Heart sounds: S1 normal heart sound present, S2 normal heart sound present, no gallops, no murmurs and no rubs Neuro General: patient oriented x3 and gait normal Cranial nerves: Yes Equal, round and reactive pupils present Psych Affect: normal affect Coding Level of Care Code Est Pt Level 5 (72853) Diagnoses Easy bruising R23.3 Lower abdominal pain R10.30 Nausea R11.0 Endometriosis of anterior abdominal wall N80.C19 Elevated liver enzymes R74.8 Assessment & Plan Assessment & Plan (1) Easy bruising: Code(s): R23.3 - Spontaneous ecchymoses Category: Medical Plan: No bruises on patient's legs today though she says she frequently sees bruising there No gum bleeding or nose bleeds as discussed previously Had reassured patient at prior visits Will check von Willebrand's as this is the common abnormality causing easy bruising (2) Lower abdominal pain: Code(s): R10.30 - Lower abdominal pain, unspecified Category: Medical (3) Nausea: Code(s): R11.0 - Nausea Category: Medical (4) Endometriosis of anterior abdominal wall: Code(s): N80.C19 - Endometriosis of the anterior abdominal wall, unspecified depth Category: Medical (5) Elevated liver enzymes: Code(s): R74.8 - Abnormal levels of other serum enzymes Category: Medical Plan Ongoing abdominal pain. She notes there was very slight improvement with bowel rest regimen and stool softeners. KUB essentially negative except for for her new surgical staple line at right lower quadrant compared with imaging done just prior to her appendectomy in 2023. Constipation is likely not the underlying cause of her abdominal discomfort though it may have been contributing. May be secondary to surgical adhesions. May be secondary to endometriosis. She has upcoming appointments with surveillance technician and surgery. She will follow-up with them as recommended. She has elevated liver enzymes but these are mild and unlikely to be a cause of any abdominal pain, particularly since this is not right upper quadrant discomfort at all. Encouraged good hydration for elevated liver enzymes and she should follow-up with Gastroenterology. She says GI had referred her to Rheumatology regarding mildly elevated JUNIE. 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 Reassured patient. Increase hydration Can continue MiraLax as needed Follow-up with GI regarding elevated liver enzymes. Orders: Orders Comprehensive Met. Panel 05/10/25 R23.3 - Spontaneous ecchymoses Lipid Panel 3 Weeks E78.00 - Pure hypercholesterolemia, unspecified, Z00.00 - Encounter for general adult medical examination without abnormal findings von Willebrand Ag Multimeric 05/10/25 R23.3 - Spontaneous ecchymoses Complete Blood Count Auto Diff 05/10/25 R23.3 - Spontaneous ecchymoses, Z00.00 - Encounter for general adult medical examination without abnormal findings Prothrombin Time INR 05/10/25 R23.3 - Spontaneous ecchymoses Comprehensive Stewart. Panel Fast 3 Weeks E78.00 - Pure hypercholesterolemia, unspecified, Z00.00 - Encounter for general adult medical examination without abnormal findings
[2025-05-10 14:13] VITALS: BP 119/58; PULSE 89; RESP 16; TEMP 36.7; O2SAT 99; BMI 32.5
--- OUTSIDE RECORDS SUMMARY | 2025-05-10 17:37 | XMS_ITS | Clinical Summary ---
Author Organization [facility] Address [address] [place] [address] Care Team Providers Care Responder Name Role Phone Unavailable Primary Care Provider [...]
== END 2025-05-10 15:07 | disposition home or self-care (01) ==
LOC: HO.HMCFM 14:08
PROVIDERS: PCP Family Medicine; Visit Provider Family Medicine
DX: R23.3 Spontaneous ecchymoses (principal); R10.30 Lower abdominal pain, unspecified; R11.0 Nausea; N80.C19 Endometriosis of the anterior abdominal wall, unspecified depth; R74.8 Abnormal levels of other serum enzymes

== ENCOUNTER 2025-05-10 14:07 | Outpatient (REF) | payer OTHER, SELFPAY ==
[2025-05-10 18:18] LABS: MANUAL DIFF FLAG NO
[2025-05-10 18:23] LABS: Hematocrit 36.0 % (37.0-47.0); Hemoglobin 11.8 g/dl (12.0-16.0); Imm Gran Abs Auto 0.01 X10*3/uL (0.00-0.03); Imm Gran Pct Auto 0.1 % (0.0-0.4); Lymphocytes Absolute Auto 2.6 X10*3/uL (1.2-4.9); Mean Corpuscular HGB Conc 32.8 g/dl (31.0-35.0); Mean Corpuscular Hemoglobin 27.0 pg (27.0-33.0); Mean Corpuscular Volume 82.4 fL (80.0-98.0); NRBC Abs Auto 0.000 X10*3/uL (0.0-0.012); NRBC Pct Auto 0.0 /100WBC (0.0-0.2); Platelet Count 309 X10*3/uL (160-400); Red Blood Count 4.37 X10*6/uL (4.20-5.50); White Blood Count 6.9 X10*3/uL (4.8-10.8)
[2025-05-10 18:39] LABS: Alanine Aminotransferase 62 U/L (0-31); Albumin Level 4.1 g/dL (3.5-5.0); Alkaline Phosphatase 71 U/L (39-117); Anion Gap 9 (12-20); Aspartate Amino Transferase 30 U/L (5-31); Blood Urea Nitrogen 14 mg/dL (9-16); Calcium 9.0 mg/dL (8.4-10.2); Carbon Dioxide 27 mmol/L (22-29); Chloride 106 mmol/L (96-108); Estimated Glomerular Filt Rate > 60; Potassium 3.9 mmol/L (3.3-5.1); Sodium 138 mmol/L (135-145); Total Protein 6.9 g/dL (6.5-8.0)
[2025-05-10 18:48] LABS: INTERNATIONAL NORM RATIO 0.9 (0.9-1.1); Prothrombin Time 11.3 SEC (11.2-13.5)
[2025-05-10 18:52] LABS: Appearance Urine Clear; Glucose Urine UA Negative (Negative); PH 7.5 (5.0-9.0); Specific Gravity - Urine 1.010 (1.005-1.025)
== END 2025-05-10 14:08 | disposition home or self-care (01) ==
LOC: HO.WFDLDS 14:07
PROVIDERS: PCP Family Medicine; Visit Provider Family Medicine
DX: Z00.00 Encounter for general adult medical examination without abnormal findings (principal); N80.C19 Endometriosis of the anterior abdominal wall, unspecified depth; R74.8 Abnormal levels of other serum enzymes; R23.3 Spontaneous ecchymoses; R10.9 Unspecified abdominal pain; R10.30 Lower abdominal pain, unspecified; R11.0 Nausea
CPT/HCPCS: 36415; 80053; 81003; 85025; 85610; 99212

== ENCOUNTER 2025-05-12 14:37 | Outpatient (AMB) | payer OTHER, SELFPAY ==
--- NOTE | 2025-05-12 14:38 | A.OFFVIS_ITS ---
Vital Signs 05/12/25 14:43 Height 5 ft 5 in Weight 195 lb BMI 32.4 BP 148/76 H Blood Pressure Location Rt brachial Position Sitting Pulse 88 Pulse Source Pulse Oximeter Pulse Oximetry (%) 100 Oxygen Delivery Method Room Air Intake Visit Reasons: Elevated LFTs + CIC mgmt. R/S per office x2. Intake Note: ESTABLISHED PATIENT for chronic abd pain and constipation mgmt. Recent KUB done. Chief Complaint; C/O persistence of RUQ pain and constipation despite current therapies. No additional sx or concerns at this time. Radiographer Technologist Required: Yes Radiographer Technologist Services: Radiographer Technologist Present Radiographer Technologist Name: [facility] [place] - Provider only. Information Interpreted: clinical only Accompanied by: Self / Same As Patient Allergies No Known Allergies (No Known Allergies*) Allergy (Verified 05/12/25 14:38) HPI HPI Elevated LFTs + CIC mgmt. R/S per office x2.: Details: LAST VISIT: Elevated liver enzymes Lower abdominal pain Postprandial abdominal bloating Chronic idiopathic constipation Plan Patient will continue taking senna daily. Increase fluid intake and activity to promote better bowel motility. On exam small hard round nodule felt just below her post appendectomy laparoscopic scar. Patient also has a history of it could be small adhesion or ventral hernia. Patient will go back to see her surgery, Dr. Valadez. PCP ordered MRI, patient missed the appointment and will call schedulers to book it. Patient will return in 6 months, sooner on as needed basis. She is agreeable to plan of care and verbalizes understanding of instructions. She was given the opportunity to ask questions and all questions answered. ? Thank you for allowing me to participate in her care Referrals General Surgery Referral K42.9, K43.9 TODAY'S VISIT: Patient is here today for follow-up. Patient reports that she has been doing fairly well although he continues to be constipated. She is taking senna, however does not feel that it is helping her. Patient has seen General surgery for her right lower quadrant discomfort. Incisional hernia found, however not large and now sit to go on their surgical repair. Patient reports that the pain is worse around her menses. Patient reports that she is drinking fluids. Denies melena, hematochezia, unintentional weight loss or ribbon like stools. Patient denies any dyspepsia, dysphagia or odynophagia. Patient also reports postprandial abdominal bloating PFSH Medical History Sinusitis Surgical History Postop check History of laparoscopic appendectomy (09/11/23) Hx of section Family History Father Diabetes HTN (hypertension) Mother Diabetes HTN (hypertension) High cholesterol Social History Household Members: Significant Other and Children Housing: Apartment Alcohol intake: never Comment: counts correct Patient Tobacco Use Status: Never used Tobacco e-Cigarette/Vaping Use: Never Used Second Hand Smoke Exposure: No service: No Current occupational status: employed Current occupation: [employer] Current occupational exposures/hazards: No Sexual orientation: Straight/Heterosexual Gender identity: Female Cognitive needs: No Hearing needs: No Vision needs: Yes (She needs to get her eyes checked.) Female Reproductive History Menstrual Age of Menarche: 14 Review of Systems Const Denies weight gain and Denies weight loss ENT Reports no additional complaints, Denies dysphagia and Denies odynophagia Card Reports no additional complaints Resp Reports no additional complaints GI Reports abdominal pain (Lower abdomen), Denies belching, Denies melena, Denies bloating, Denies change in bowel habits, Reports constipation (Improved with senna), Denies dysphagia, Denies excessive flatus, Denies dyspepsia, Denies heartburn, Denies diarrhea, Denies loose stools, Denies nausea, Denies odynophagia and Denies vomiting Musc Reports no additional complaints Neuro Reports no additional complaints Psych Reports no additional complaints Endo Reports no additional complaints Physical Exam Vital Signs: Last Vital Signs Pulse 88 05/12/25 14:43 BP 148/76 H 05/12/25 14:43 Pulse Ox 100 05/12/25 14:43 Oxygen Delivery Method Room Air 05/12/25 14:43 BMI result Body Mass Index 32.4 Const General: healthy appearing and no acute distress Nutritional Appearance: obese Orientation/consciousness: patient oriented x3 Resp Effort & Inspection: normal respiratory effort, able to speak in complete sentences, no tracheal deviation and symmetric chest movement Auscultation: clear to auscultation bilaterally Cardio Rate: regular rate GI Inspection: Yes normal to inspection, No distended, Yes obesity and Yes scar Palpation (GI): Soft to palpation, not firm, nontender, No hepatosplenomegaly present and Hernia present (Lower abdomen just below post laparoscopic appendectomy scar) Auscultation: normal bowel sounds General: Yes no CVA tenderness Back/Spine/Pelvis Back: no CVA tenderness Skin General skin exam: elasticity normal, turgor normal and dry skin Neuro General: patient oriented x3 Psych Appearance: grossly normal Mental Status: mental status grossly normal Assessment & Plan Assessment & Plan (1) Positive JUNIE (antinuclear antibody): Code(s): R76.8 - Other specified abnormal immunological findings in serum Category: Medical (2) Elevated liver enzymes: Code(s): R74.8 - Abnormal levels of other serum enzymes Category: Medical (3) Incisional hernia: Code(s): K43.2 - Incisional hernia without obstruction or gangrene Category: Medical Qualifiers: Obstruction and gangrene presence: without obstruction or gangrene Qualified Code(s): K43.2 - Incisional hernia without obstruction or gangrene (4) Lower abdominal pain: Code(s): R10.30 - Lower abdominal pain, unspecified Category: Medical (5) Constipation: Code(s): K59.00 - Constipation, unspecified Qualifiers: Constipation type: slow transit constipation Qualified Code(s): K59.01 - Slow transit constipation Plan Patient has elevated JUNIE and we will send her to rheumatology. PCP send her to [facility] [place], however she is not able to get in the toe March of next year. Patient was encouraged to take MiraLax daily. Increase fluid intake and activity to promote better bowel motility. Patient will follow-up in our office in 2 months. She will call us if she will have any GI concerning symptoms. Patient is agreeable to this plan and verbalizes understanding of instructions. She was given the opportunity to ask questions and all questions answered. Thank you for allowing me to participate in care Orders: Referrals Rheumatology Referral R76.8 - Other specified abnormal immunological findings in serum Medications: Discontinued sennosides Discontinued Reason: Change Referral Type 17.2 mg (2 x 8.6 mg) PO BEDTIME 60 tabs 3RF constipation K59.00 - Constipation, unspecified Coding Level of Care Code Est Pt Level 3 (86185) Diagnoses Positive JUNIE (antinuclear antibody) R76.8 Elevated liver enzymes R74.8 Incisional hernia, without obstruction or gangrene K43.2 Obstruction and gangrene presence: without obstruction or gangrene Lower abdominal pain R10.30 Slow transit constipation K59.01 Constipation type: slow transit constipation Time Spent (min) 30 Comment 20 minutes spent with patient and additional 10 minutes spent reviewing her records
--- OUTSIDE RECORDS SUMMARY | 2025-05-12 14:39 | XMS_ITS | Clinical Summary ---
Author Organization [facility] Address [address] [place] [address] Care Team Providers Care Behavioral Geneticist Name Role Phone Unavailable Primary Care Provider [...]
[2025-05-12 14:43] VITALS: BP 148/76; PULSE 88; O2SAT 100; BMI 32.4
== END 2025-05-12 15:15 | disposition home or self-care (01) ==
LOC: HO.HGI 14:37
PROVIDERS: PCP Family Medicine; Visit Provider Nurse Practitioner Family
DX: R76.89 Other specified abnormal immunological findings in serum (principal); R74.8 Abnormal levels of other serum enzymes; K43.2 Incisional hernia without obstruction or gangrene; R10.30 Lower abdominal pain, unspecified; K59.01 Slow transit constipation
CPT/HCPCS: 99213

== ENCOUNTER → 2025-05-12 14:37 | Outpatient (BNVA) | payer OTHER, SELFPAY | PROVIDERS: PCP Family Medicine; Visit Provider Nurse Practitioner Family | DX: R76.89 Other specified abnormal immunological findings in serum (principal); R74.8 Abnormal levels of other serum enzymes; K43.2 Incisional hernia without obstruction or gangrene; R10.30 Lower abdominal pain, unspecified; K59.01 Slow transit constipation; Z79.899 Other long term (current) drug therapy | CPT/HCPCS: 99212 ==